=== PATIENT | female | born 1980 ===

== ENCOUNTER 2020-09-08 09:40 | Outpatient (REF) | payer OTHER, SELFPAY ==
--- NOTE | 2020-09-08 09:44 | MM_ITS ---
EXAMINATION: MM SCREENING DIGITAL MAMMOGRAPHY, BILATERAL CLINICAL INFORMATION: Screening. Asymptomatic. The lifetime risk of breast cancer based on the Tyrer-Cuzick Model is 11.2%. COMPARISON: Mammography: 12/01/2014 TECHNIQUE: Digital mammography is performed in craniocaudal and mediolateral oblique views along with computer-aided detection (CAD). FINDINGS: There are scattered areas of fibroglandular density (ACR BI-RADS breast composition Category b). No abnormal dominant mass or suspicious grouping of microcalcifications is seen within the left breast. Within the central aspect of the right breast slightly medially 7 cm from nipple, there is an ill-defined density with question of spiculation for which further evaluation with spot compression film and possible ultrasound is recommended. MM/MM screening mammo BI IMPRESSION: Question right breast abnormality for which further evaluation is suggested. ASSESSMENT: BI-RADS 0: Incomplete - Need Additional Imaging Evaluation. RECOMMENDATION: 1. Additional views of the right breast. 2. Targeted ultrasound if warranted after review of the additional views. 3. Radiology department staff will contact the patient for additional imaging. This patient's information was entered into a reminder system with a target due date for their next mammogram.
== END 2020-09-08 09:41 | disposition home or self-care (01) ==
LOC: HO.NEURO 09:40
PROVIDERS: PCP Internal Medicine; Visit Provider Internal Medicine
DX: Z12.31 Encounter for screening mammogram for malignant neoplasm of breast (principal)
CPT/HCPCS: 77067

== ENCOUNTER 2020-09-30 07:53 | Outpatient (REF) | payer OTHER, SELFPAY ==
--- NOTE | 2020-09-30 07:59 | MM_ITS ---
EXAMINATION: MM DIAGNOSTIC DIGITAL BREAST TOMOSYNTHESIS, RIGHT CLINICAL INFORMATION: Recall from screening for question of architectural changes central right breast. There is prior history benign right breast surgery 2015. Age 40. Family history breast cancer in aunt. TC score 11.2%. COMPARISON: Mammography: 09/08/2020, 12/01/2014 TECHNIQUE: Digital breast tomosynthesis is performed. 2D images are generated from the tomosynthesis. The following views are obtained: Spot CC x2, spot MLO. FINDINGS: There are scattered areas of fibroglandular density (ACR BI-RADS breast composition Category b). Additional views show no mass or suspicious architectural change. There is some minor scarring right breast likely related to the prior surgery. As a precaution, six-month follow-up right diagnostic mammography will be requested. Results are discussed with the patient at time of visit. MM/MM tomosynthesis added views R IMPRESSION: Additional views show no suspicious finding. There is likely some minor scarring from prior right breast surgery. ASSESSMENT: BI-RADS 3: Probably Benign RECOMMENDATION: Diagnostic right mammography in 6 months. This patient's information was entered into a reminder system with a target due date for their next mammogram.
== END 2020-09-30 07:54 | disposition home or self-care (01) ==
LOC: HO.MAMMO 07:53
PROVIDERS: PCP Internal Medicine; Visit Provider Internal Medicine
DX: R92.8 Other abnormal and inconclusive findings on diagnostic imaging of breast (principal); Z80.3 Family history of malignant neoplasm of breast
CPT/HCPCS: 77061; 77065

== ENCOUNTER → 2020-10-07 08:51 | Outpatient (BNVA) | payer OTHER, SELFPAY | PROVIDERS: PCP Internal Medicine; Visit Provider Orthopaedic Surgery | DX: M65.312 Trigger thumb, left thumb (principal); M65.331 Trigger finger, right middle finger; M65.311 Trigger thumb, right thumb; G56.02 Carpal tunnel syndrome, left upper limb | CPT/HCPCS: 20550; 99202; J1100 ==

== ENCOUNTER 2020-10-14 18:32 | Emergency (ER) | payer OTHER, SELFPAY ==
[2020-10-14 19:19] VITALS: BP 116/76; PULSE 90; RESP 18; TEMP 36.4; O2SAT 96; BMI 37.6
[2020-10-14 20:41] VITALS: BP 122/68; PULSE 82; RESP 17; TEMP 36.4; O2SAT 100
--- NOTE | 2020-10-14 21:07 | ECG_ITS ---
Test Reason : MEDICAL CLEARANCE Blood Pressure : / mmHG Vent. Rate : 065 BPM Atrial Rate : 065 BPM P-R Int : 140 ms QRS Dur : 088 ms QT Int : 364 ms P-R-T Axes : 019 009 010 degrees QTc Int : 378 ms Normal sinus rhythm Normal ECG When compared with ECG of 18-APR-2016 11:22, Vent. rate has decreased BY 44 BPM Referred By: Nichol Bird Electronically Signed By:RAMSEY YEPEZ MD
--- NOTE | 2020-10-14 21:07 | ED.BACK ---
HPI - Back Pain/Injury General Chief Complaint: Back Pain/Injury Stated Complaint: Back Pain Time Seen by Provider: 10/14/20 23:08 Source: patient Mode of arrival: ambulatory Limitations: language barrier History of Present Illness HPI Narrative: 40-year-old female with past medical history of AFib, tubal ligation, presents with 3 days of upper mid back pain radiating to the right arm. She states that she does a lot of standing and upper arm movement with work and states that the pain has not gotten better with any [id number]-pylurvd medications. She does report some intermittent chest pain. She does not describe any shortness of breath, palpitations, abdominal distention, dysuria, hematuria, fevers, chills or edema. MD elicited complaint: back pain Onset (ago): day(s) (3) Timing: constant Severity: moderate Pain scale (0-10): 6 Similar Symptoms Previously: No Quality: aching Location: right upper back and left upper back Radiation: other (Right arm) Exacerbating factors: movement and sitting upright Context: while lifting, turning/twisting and bending Treatments prior to arrival: NSAIDS and acetaminophen Work related injury: No Related Data Home Medications Medication Instructions Recorded Confirmed metoprolol succinate 25 mg 25 mg PO DAILY 07/13/20 07/13/20 tablet,extended release 24 hr diclofenac potassium 50 mg tablet 50 mg PO DAILY 10/07/20 Previous Rx's Medication Instructions Recorded cetirizine 10 mg tablet 10 mg PO DAILY PRN #30 tab 07/13/20 flecainide 50 mg tablet 50 mg PO BID #60 tab 07/14/20 doxycycline monohydrate 100 mg 100 mg PO BID 5 Days #10 tab 09/13/20 tablet cephalexin [Keflex] 500 mg PO Q12H 7 Days #14 cap 10/14/20 fluconazole [Diflucan] 150 mg PO DAILY #1 tab 10/14/20 phenazopyridine [Pyridium] 200 mg PO TID PRN #6 tab 10/14/20 Allergies Allergy/AdvReac Type Severity Reaction Status Date / Time oxycodone [OXYCODONE] Allergy Unknown PALPITATIONS, Verified 10/14/20 20:36 tachycardia, SOB,agitation Review of Systems Review of Systems: Constitutional: No Fever, No Chills ENT/Mouth: No sore throat Eyes: No Eye Pain, No Swelling, No Redness Cardiovascular: Positive Chest Pain, No SOB Respiratory: No Cough, No Sputum, No Wheezing Gastrointestinal: No Nausea, no Vomiting, No Diarrhea, now abdominal pain Genitourinary: No Dysuria, no urinary frequency, no Hematuria, positive Flank Pain, no hesitancy Musculoskeletal: Positive mid back pain, positive right arm pain, No joint pain, No Myalgias Skin: No Skin Lesions, No rash Neuro: No Weakness, No Numbness, No Headache Psych: No Anxiety/Panic, No Depression Heme/Lymph: No Bruising, No Lymphadenopathy Endocrine: No Polyuria, No Polydipsia Yes all other systems are reviewed and are negative [facility] Past Medical History Attestation statement: The following information was validated with the patient. Medical History Allergic rhinitis Atrial fibrillation Numbness of left hand Obesity Trigger finger Surgical History History of carpal tunnel release History of lumpectomy of right breast History of tubal ligation Family History Family History Father Diabetes Hypertension Mother Diabetes Maternal Grandmother Colon cancer Maternal Aunt Breast cancer Paternal Uncle Pancreas cancer Social History Social History Smoking Status: Former smoker Tobacco Type: Cigarette Advance Directives: No Advance Directives Information Provided: No Current occupational status: employed Current occupation: [employer] - right handed Physical Exam Vital Signs: Vital Signs: Last Vital Signs Temp 97.6 F 10/14/20 20:41 Pulse 82 10/14/20 20:41 Resp 17 10/14/20 20:41 BP 122/68 10/14/20 20:41 Pulse Ox 100 10/14/20 20:41 Body Mass Index 37.6 Appearance: Alert. Oriented X3. No acute distress. Eyes: Pupils equal, round and reactive to light. ENT: Pharynx normal. Neck: Normal inspection. Neck supple. CVS: Normal heart rate and rhythm. Pulses normal. Respiratory: No respiratory distress. Breath sounds normal. Abdomen: Soft and tender to the right upper quadrant, and suprapubic. Negative CVA tenderness. Skin: Skin warm and dry. Normal skin color. Normal skin turgor. Extremities: No lower extremity edema. Neuro: No motor deficit. No sensory deficit. Course Course Course Narrative: 40-year-old female with past medical history of AFib on metoprolol and flecainide presents with back pain, arm pain and intermittent chest pain. Plan of care is to rule out ACS, lab values and urinalysis. EKG normal sinus, troponins are negative, lab values are unremarkable. Urinalysis positive for UTI with yeast. Plan of care is to treat with Keflex and Diflucan for yeast infection. She does not describe any vaginal pain or discharge. She declines pelvic exam at this time and states that she has no risk of sexually transmitted infection. sand buffer utilized for all correspondence. Google translate utilized for discharge instructions. Patient verbalized understanding of and agrees to plan of care to discharge home. MDM - Back Pain/Injury MDM Narrative Medical decision making narrative: UTI, ACS, cholecystitis, pneumonia Differential Diagnosis Differential diagnosis: Likely lumbar radiculopathy, strain of lumbar region and pyelonephritis Medical Records Attestation: I reviewed the patient's medical records. Lab Data Attestation: I reviewed the patient's lab results. Result diagrams: 10/14/20 21:41 10/14/20 21:41 Labs: Lab Results 10/14/20 10/14/20 10/14/20 Range/Units 21:23 21:41 21:41 WBC 7.7 (4.8-10.8) X10*3/uL RBC 4.16 L (4.20-5.50) X10*6/uL Hgb 12.4 (12.0-16.0) g/dl Hct 38.8 (37-47) % MCV 93.3 (80-98) fL MCH 29.8 (27.0-33.0) pg MCHC 32.0 (31.0-35.0) g/dl RDW 13.2 (11.0-16.0) % Plt Count 289 (160-400) X10*3/uL MPV 9.8 (9.4-12.3) fL Immature Gran % (Auto) 0.1 (0.0-0.4) % Neut % (Auto) 50.2 (45-73) % Lymph % (Auto) 37.3 (20-40) % [place] % (Auto) 9.2 (2-11) % Eos % (Auto) 2.9 (0-4) % Baso % (Auto) 0.3 (0-2) % Lymph # (Auto) 2.9 (1.2-4.9) X10*3/uL [place] # (Auto) 0.7 (0.1-1.2) X10*3/uL Eos # (Auto) 0.2 (0.0-0.4) X10*3/uL Baso # (Auto) 0.0 (0.0-0.2) X10*3/uL Abs Immat Gran (auto) 0.01 (0.00-0.03) X10*3/uL Absolute Neuts (auto) 3.9 (2.0-8.3) X10*3/uL Absolute Nucleated RBC 0.000 (0.0-0.012) X10*3/uL Nucleated RBC % (auto) 0.0 (0.0-0.2) /100WBC PT 13.1 H (10.8-13.0) SEC INR 1.1 (0.9-1.1) APTT 30.0 (24.1-38.0) SEC Sodium (135-145) mmol/L Potassium (3.3-5.1) mmol/l Chloride (96-108) mmol/L Carbon Dioxide (22-29) mmol/L Anion Gap (12-20) BUN (9-16) mg/dL Creatinine (0.5-1.4) mg/dL Estim Creat Clear Calc Estimated GFR Random Glucose (60-115) mg/dL Calcium (8.4-10.2) mg/dL Total Bilirubin (0.0-1.0) mg/dL Direct Bilirubin (0.0-0.5) mg/dL AST (5-31) U/L ALT (0-31) U/L Alkaline Phosphatase (39-117) U/L Troponin I High Sens (<3.5-17.0) ng/L Total Protein (6.5-8.0) g/dL Albumin (3.5-5.0) g/dL Lipase (8-78) U/L Urine Color YELLOW Urine Appearance HAZY Urine pH 6.0 (5.0-8.0) Ur Specific [place] >= 1.030 H (1.005-1.025) Urine Protein NEG (NEG-TRACE) MG/DL Urine Glucose (UA) NEG (NEG) MG/DL Urine Ketones 5 (NEG) MG/DL Urine Blood NEG (NEG) Urine Nitrite NEG (NEG) Ur Leukocyte Esterase 2+ H (NEG) Urine RBC 0-2 (0) /HPF Urine WBC 15-29 H (0-4) /HPF Ur Squamous Epith Cells 3+ /LPF Urine Bacteria 1+ /LPF Urine Yeast TRACE /HPF 10/14/20 10/14/20 Range/Units 21:41 21:41 WBC (4.8-10.8) X10*3/uL RBC (4.20-5.50) X10*6/uL Hgb (12.0-16.0) g/dl Hct (37-47) % MCV (80-98) fL MCH (27.0-33.0) pg MCHC (31.0-35.0) g/dl RDW (11.0-16.0) % Plt Count (160-400) X10*3/uL MPV (9.4-12.3) fL Immature Gran % (Auto) (0.0-0.4) % Neut % (Auto) (45-73) % Lymph % (Auto) (20-40) % [place] % (Auto) (2-11) % Eos % (Auto) (0-4) % Baso % (Auto) (0-2) % Lymph # (Auto) (1.2-4.9) X10*3/uL [place] # (Auto) (0.1-1.2) X10*3/uL Eos # (Auto) (0.0-0.4) X10*3/uL Baso # (Auto) (0.0-0.2) X10*3/uL Abs Immat Gran (auto) (0.00-0.03) X10*3/uL Absolute Neuts (auto) (2.0-8.3) X10*3/uL Absolute Nucleated RBC (0.0-0.012) X10*3/uL Nucleated RBC % (auto) (0.0-0.2) /100WBC PT (10.8-13.0) SEC INR (0.9-1.1) APTT (24.1-38.0) SEC Sodium 140 (135-145) mmol/L Potassium 4.0 (3.3-5.1) mmol/l Chloride 106 (96-108) mmol/L Carbon Dioxide 25 (22-29) mmol/L Anion Gap 13 (12-20) BUN 13 (9-16) mg/dL Creatinine 0.74 (0.5-1.4) mg/dL Estim Creat Clear Calc 137.1 Estimated GFR > 60 Random Glucose 91 (60-115) mg/dL Calcium 8.7 (8.4-10.2) mg/dL Total Bilirubin 0.5 (0.0-1.0) mg/dL Direct Bilirubin 0.2 (0.0-0.5) mg/dL AST 15 (5-31) U/L ALT 21 (0-31) U/L Alkaline Phosphatase 60 (39-117) U/L Troponin I High Sens < 3.5 (<3.5-17.0) ng/L Total Protein 7.2 (6.5-8.0) g/dL Albumin 4.1 (3.5-5.0) g/dL Lipase 40 (8-78) U/L Urine Color Urine Appearance Urine pH (5.0-8.0) Ur Specific [place] (1.005-1.025) Urine Protein (NEG-TRACE) MG/DL Urine Glucose (UA) (NEG) MG/DL Urine Ketones (NEG) MG/DL Urine Blood (NEG) Urine Nitrite (NEG) Ur Leukocyte Esterase (NEG) Urine RBC (0) /HPF Urine WBC (0-4) /HPF Ur Squamous Epith Cells /LPF Urine Bacteria /LPF Urine Yeast /HPF Imaging Data Chest x-ray: Attestation: I personally reviewed and interpreted this imaging study as follows: Radiologist's impression: EXAMINATION: XR CHEST CLINICAL INFORMATION: Back and shoulder pain COMPARISON: Chest x-ray 12/01/2018 TECHNIQUE: 2 views of the chest were obtained. FINDINGS: Cardiac silhouette is normal in size. Low lung volumes. No lobar consolidation. No pleural effusion or pneumothorax. No acute osseous abnormality. XR/XR chest 2V IMPRESSION: Stable examination demonstrating no acute pulmonary pathology. ECG Data Attestation: I personally reviewed and interpreted this ECG as follows: ECG interpretation date: 10/14/20 ECG interpretation time: 21:27 Prior ECG tracings: available for review Interpretation: Vent. Rate : 065 BPM Atrial Rate : 065 BPM P-R Int : 140 ms QRS Dur : 088 ms QT Int : 364 ms P-R-T Axes : 019 009 010 degrees QTc Int : 378 ms Normal sinus rhythm Normal ECG When compared with ECG of 18-APR-2016 11:22, Vent. rate has decreased BY 44 BPM Scores Heart Score History: -1- moderately suspicious ECG: -0- normal Age: -0- < or = 45 Risk factory: -1- 1 or 2 risk factors Troponin: -0- < or = normal limit Score: 2 Risk: 1.7% Discharge Plan Discharge Clinical Impression: UTI (urinary tract infection) Patient Disposition: Home, Self-Care Instructions: Urinary Tract Infection in Women (ED) Additional Instructions: Te evaluaron para el dolor de espalda. Los valores de laboratorio indican infecci?n del tracto urinario. Por favor, tome Keflex cada 12 horas justine los pr?ximos 7 d?as. Gladys medicamento es un antibi?wilfred. Por favor, tome Pyridium seg?n sea necesario para el dolor de vejiga y espasmos. Gladys medicamento volver? la orina naranja. Gladys es un efecto secundario normal para gladys medicamento. Por favor, tome Diflucan rosalio vez que se completen zaira antibi?ticos. Gladys medicamento es para la infecci?n por hongos. Le dimos funez primera dosis en el departamento de emergencias. Por favor, rod un seguimiento con el proveedor de atenci?n primaria seg?n sea necesario. Si los s?ntomas persisten o empeoran, por favor regrese al departamento de emergencias. Puede usar Tylenol y Motrin seg?n sea necesario para el control del dolor. Odette por elegir gladys departamento de emergencias para la evaluaci?n. Por favor, rod un seguimiento con el m?dico de atenci?n primaria seg?n sea necesario. Regrese al servicio de urgencias para cualquier s?ntoma nuevo, preocupante o que empeore. You were evaluated for back pain. Lab values indicate urinary tract infection. Please take Keflex every 12 hours for the next 7 days. This medication is an antibiotic. Please take Pyridium as needed for bladder pain and spasms. This medication will turn your urine orange. This is a normal side effect for this medication. Please take Diflucan once your antibiotics are completed. This medication is for yeast infection. We gave you your 1st dose in the emergency department. Please follow-up with primary care provider as needed. If symptoms persist or get worse please return to the emergency department. You may use Tylenol and Motrin as needed for pain management. Thank you for choosing this emergency department for evaluation. Please follow-up with primary care physician as needed. Return to the emergency department for any new, concerning, or worsening symptoms. Prescriptions: New cephalexin [Keflex] 500 mg capsule 500 mg PO Q12H 7 Days Qty: 14 RF: 0 phenazopyridine [Pyridium] 200 mg tablet 200 mg PO TID PRN (Reason: pain) Qty: 6 RF: 0 fluconazole [Diflucan] 150 mg tablet 150 mg PO DAILY Qty: 1 RF: 0 No Action cetirizine 10 mg tablet 10 mg PO DAILY PRN (Reason: allergies) Qty: 30 RF: 11 flecainide 50 mg tablet 50 mg PO BID Qty: 60 RF: 5 doxycycline monohydrate 100 mg tablet 100 mg PO BID 5 Days Qty: 10 RF: 0 metoprolol succinate 25 mg tablet extended release 24 hr 25 mg PO DAILY RF: 0 Stand Alone Forms: Work/School Release Interventions: ED Discharge Assessment Last Done: 10/14/20 23:49 Discharge Date/Time: 10/14/20 23:51
[2020-10-14 22:32] LABS: MANUAL DIFF FLAG NO
[2020-10-14 22:34] LABS: Basophils Percent Auto 0.3 % (0-2); Eosinophils Absolute Auto 0.2 X10*3/uL (0.0-0.4); Eosinophils Percent Auto 2.9 % (0-4); Hematocrit 38.8 % (37-47); Hemoglobin 12.4 g/dl (12.0-16.0); Imm Gran Abs Auto 0.01 X10*3/uL (0.00-0.03); Imm Gran Pct Auto 0.1 % (0.0-0.4); Lymphocytes Absolute Auto 2.9 X10*3/uL (1.2-4.9); Lymphocytes Percent Auto 37.3 % (20-40); Mean Corpuscular Hemoglobin 29.8 pg (27.0-33.0); Mean Corpuscular Volume 93.3 fL (80-98); Mean Platelet Volume 9.8 fL (9.4-12.3); Monocytes Absolute Auto 0.7 X10*3/uL (0.1-1.2); Monocytes Percent Auto 9.2 % (2-11); Neutrophils Absolute Auto 3.9 X10*3/uL (2.0-8.3); Neutrophils Percent Auto 50.2 % (45-73); Platelet Count 289 X10*3/uL (160-400); Red Blood Count 4.16 X10*6/uL (4.20-5.50); Red Cell Distribution Width 13.2 % (11.0-16.0); White Blood Count 7.7 X10*3/uL (4.8-10.8)
[2020-10-14 22:39] LABS: INTERNATIONAL NORM RATIO 1.1 (0.9-1.1); Prothrombin Time 13.1 SEC (10.8-13.0)
[2020-10-14 22:42] LABS: Glucose Urine UA NEG (NEG); Leukocyte Esterase Urine 2+ (NEG); Nitrite Urine NEG (NEG); Specific Gravity - Urine >= 1.030 (1.005-1.025); Urine Blood NEG (NEG); Urine Ketones 5 MG/DL (NEG); Urine Protein NEG (NEG-TRACE)
[2020-10-14 22:43] LABS: Appearance Urine HAZY; Color Urine YELLOW
[2020-10-14 22:51] LABS: Bacteria Urine 1+ /LPF; RBC Urine 0-2 /HPF (0); Squamous Epithelial Cell Urine 3+ /LPF
[2020-10-14 22:56] LABS: Alanine Aminotransferase 21 U/L (0-31); Albumin Level 4.1 g/dL (3.5-5.0); Alkaline Phosphatase 60 U/L (39-117); Anion Gap 13 (12-20); Aspartate Amino Transferase 15 U/L (5-31); Bilirubin Direct 0.2 mg/dL (0.0-0.5); Bilirubin Total 0.5 mg/dL (0.0-1.0); Blood Urea Nitrogen 13 mg/dL (9-16); Calcium 8.7 mg/dL (8.4-10.2); Carbon Dioxide 25 mmol/L (22-29); Chloride 106 mmol/L (96-108); Creatinine Clr Calc Pharmacy 137.1; Estimated Glomerular Filt Rate > 60; Glucose Random 91 mg/dL (60-115); Lipase 40 U/L (8-78); Sodium 140 mmol/L (135-145); Total Protein 7.2 g/dL (6.5-8.0)
[2020-10-14 22:59] LABS: Troponin-I High Sensitivity < 3.5 ng/L (<3.5-17.0)
[2020-10-14] MEDS: Phenazopyridine HCL 200 MG TABLET PO (23:36)
[2020-10-14] MEDS: cephALEXin 500 MG CAPSULE PO (23:36)
[2020-10-14] MEDS: Fluconazole 150 MG TABLET PO (23:36)
== END 2020-10-14 23:51 | disposition home or self-care (01) ==
PROVIDERS: Nurse Practitioner Family; Emergency Provider Internal Medicine; PCP Internal Medicine
DX: N39.0 Urinary tract infection, site not specified (principal); I48.91 Unspecified atrial fibrillation; M79.621 Pain in right upper arm; Z87.891 Personal history of nicotine dependence
CPT/HCPCS: 36415; 71046; 80048; 80076; 81001; 83690; 84484; 85025; 85610; 85730; 87086; 93005; 99284

== ENCOUNTER → 2020-11-02 09:16 | Outpatient (REF) | payer OTHER, SELFPAY ==
--- NOTE | 2020-11-02 09:30 | CA_ITS ---
Transthoracic Echocardiogram Patient (Last, First, Middle): Kaia Cadet, Gender: Female Date of : 1980 Age: 40 Procedure Date: 11/02/2020 Procedure Type: Transthoracic Echocardiogram Location: OP Height: 175.26 cm Weight: 113.4 kg BSA: 2.27 m2 Heart Rate: bpm BP: 100 / 62 mmHg Visual Developer: WALTER Referring MD: James Jones MD Entry Level Software Engineer: Oscar Corrigan MD Symptoms: I48.0 PAF, Z79.899 LONTERM ANTIRHYTHMIC DRUG Study Quality: Fair ECG Rhythm: Sinus Conclusions: - Essentially normal study Findings Left Ventricle Normal left ventricular size, thickness, and systolic function. The visually estimated ejection fraction is between 60-65%. Diastolic function is normal for age. Right Ventricle Normal right ventricular cavity size and systolic function. Atria Both atria are normal in size. Interatrial shunt cannot be excluded. Aortic Valve Normal aortic valve structure and function. There is no aortic valve stenosis. There is no aortic valve regurgitation. Mitral Valve Normal mitral valve structure and function. There is trace mitral valve regurgitation. There is no mitral valve stenosis. Pulmonic Valve The pulmonic valve is likely normal. Tricuspid Valve Normal tricuspid valve structure. There is trace tricuspid valve regurgitation. The right ventricular systolic pressure is normal. The right ventricular systolic pressure is 19 mmHg. There is no evidence of pulmonary hypertension. Great Vessels All visible segments of the aorta are normal in size. The pulmonary artery was not well visualized. Venous The inferior vena cava is normal in size and collapses greater than 50% with inspiration. Pericardium/Pleural There is no evidence of pericardial effusion. Prior Study Comparison No significant change compared to prior study dated: 02/09/2016. Measurements 2D Linear Measurements IVSd: 0.87 0.6-0.9/0.6-1.0 cm LVIDd: 4.69 3.9-5.3/4.2-5.9 cm LVIDd Index: 2.07 2.4-3.2/2.2-3.1 cm/m2 LVIDs: 3.05 2.0-3.6 cm LVPWd: 0.84 0.7-1.1 cm Ao Root: 2.70 2.1-3.5 cm LA Diam: 3.40 2.7-3.8/3.0-4.0 cm LAIDs Index: 1.50 1.5-2.3 cm/m2 LV Mass: 164.83 67-162/88-224 g LV Mass Index: 72.61 43-95/49-115 g/m2 LVOT Diam: 2.00 3.0+(-)1.3 cm 2D Systolic Function EF 4C: 62.40 >55% Mitral Valve MV Pk E: 0.67 MV PK A: 0.50 MV Decel Time: 116.00 E/A: 1.30 E'Lateral: 11.20 E'Medial: 8.90 E/E' Med: 7.50 E/E' Lat: 5.90 PHT: 34.00 MVA PHT: 6.47 Decel [place]: 5.72 Aortic Valve AoV Pk Narciso: 1.48 AoV Pk Grad: 9.00 LVOT LVOT Pk Narciso: 1.02 LVOT Mn Narciso: 0.65 LVOT VTI: 0.21 LVOT Pk Grad: 4.00 LVOT Mn Grad: 2.00 LVOT Diam: 2.00 LVOT Area: 3.14 Diastolic Function MV Pk E: 0.67 MV Pk A: 0.50 E/A: 1.30 E'Medial: 8.90 E/E' Med: 7.50 E' Laterial: 11.20 E/E' Lat: 5.90 Tricuspid Valve TR Pk Narciso: 2.02 TR Pk Grad: 16.00 RA Press: 3.00 RVSP: 19.00 Great Vessels Aorta Ao Root-2D: 2.70 2.0-3.7 cm Ao Asc: 2.50 2.1-3.4 cm Updated in Other Vendor System with Status of Final Oscar Corrigan MD electronically signed on 11/03/2020 1:12:31 PM with status of Final
== END ==
LOC: HO.CARD 09:16
PROVIDERS: PCP Internal Medicine; Visit Provider Internal Medicine
DX: I48.0 Paroxysmal atrial fibrillation (principal); Z79.899 Other long term (current) drug therapy
CPT/HCPCS: 93306

== ENCOUNTER → 2020-12-06 08:31 | Outpatient (BNVA) | payer OTHER, SELFPAY | PROVIDERS: PCP Internal Medicine; Visit Provider Internal Medicine | DX: I48.0 Paroxysmal atrial fibrillation (principal); E66.09 Other obesity due to excess calories; Z68.37 Body mass index [BMI] 37.0-37.9, adult; Z51.81 Encounter for therapeutic drug level monitoring; Z79.899 Other long term (current) drug therapy | CPT/HCPCS: 93005; 99212 ==

== ENCOUNTER → 2020-12-23 09:49 | Outpatient (REF) | payer OTHER, SELFPAY | LOC: HO.SL 09:49 | PROVIDERS: PCP Internal Medicine; Visit Provider Internal Medicine | DX: G47.33 Obstructive sleep apnea (adult) (pediatric) (principal); I48.0 Paroxysmal atrial fibrillation | CPT/HCPCS: 95806 ==

== ENCOUNTER → 2021-03-22 08:50 | Outpatient (BNVA) | payer OTHER, SELFPAY | PROVIDERS: PCP Internal Medicine; Visit Provider Nurse Practitioner Family | DX: G47.33 Obstructive sleep apnea (adult) (pediatric) (principal) | CPT/HCPCS: 99202 ==

== ENCOUNTER 2021-03-30 08:35 | Outpatient (REF) | payer OTHER, SELFPAY ==
--- NOTE | ~2021-03-30 | MM_ITS ---
EXAMINATION: MM DIAGNOSTIC DIGITAL BREAST TOMOSYNTHESIS, RIGHT CLINICAL INFORMATION: Six-month follow-up right breast asymmetry The lifetime risk of breast cancer based on the Tyrer-Cuzick Model is 11.5%. COMPARISON: Mammography: September 30, 2020 and studies dating back to December 01, 2014 TECHNIQUE: Digital breast tomosynthesis is performed in both the craniocaudal and mediolateral oblique views along with computer-aided detection (CAD). Synthesized 2D images are generated from the tomosynthesis. FINDINGS: There are scattered areas of fibroglandular density (ACR BI-RADS breast composition Category b). There is a stable parenchymal pattern within the right breast with no new abnormal dominant mass or suspicious grouping of microcalcifications. Small region of architectural distortion is similar in appearance dating back to study of December 01, 2014. Results are provided to the patient at time of visit by the technologist. MM/MM tomosynthesis diagnostic RT IMPRESSION: There are no significant changes from prior study. ASSESSMENT: BI-RADS 2: Benign RECOMMENDATION: Routine annual mammography screening due in 12 months. This patient's information was entered into a reminder system with a target due date for their next mammogram.
== END 2021-03-30 08:36 | disposition home or self-care (01) ==
LOC: HO.MAMMO 08:35
PROVIDERS: PCP Internal Medicine; Visit Provider Internal Medicine
DX: R92.2 Inconclusive mammogram (principal)
CPT/HCPCS: 77061; 77065

== ENCOUNTER → 2021-06-21 08:15 | Outpatient (BNVA) | payer OTHER, SELFPAY | PROVIDERS: PCP Internal Medicine; Visit Provider Nurse Practitioner Family ==

== ENCOUNTER 2021-06-24 04:10 | Emergency (ER) | payer OTHER, SELFPAY ==
--- NOTE | ~2021-06-24 | XR_ITS ---
EXAMINATION: XR LUMBAR SPINE CLINICAL INFORMATION: Low back pain COMPARISON: 12/13/2015 TECHNIQUE: Three views of the lumbar spine. FINDINGS: There is anatomic alignment of the lumbar vertebral bodies and posterior elements. Vertebral body heights are maintained. Intervertebral disc spaces are relatively well-preserved. No acute fracture is seen. Sacroiliac joints are intact. XR/XR lumbar spine 2-3V IMPRESSION: No acute findings.
[2021-06-24 05:56] VITALS: BP 118/69; PULSE 77; RESP 16; TEMP 36.4; O2SAT 99; BMI 36.9
--- NOTE | 2021-06-24 06:11 | ED_ITS ---
HPI - Back Pain/Injury General Chief Complaint: Back Pain/Injury Stated Complaint: back pain Time Seen by Provider: 06/24/21 06:11 Source: patient Mode of arrival: ambulatory Limitations: no limitations History of Present Illness HPI Narrative: Low back pain, denies injury, started yesterday. In the past she had upper back pain. Denies dysuria or hematuria. no fever. Increased pain with ambulation. MD elicited complaint: back pain Pertinent past history: prior back pain Onset (ago): day(s) Timing: constant Severity: mild Quality: throbbing Location: lumbar spine Exacerbating factors: movement Associated symptoms: denies other symptoms Related Data Previous Rx's Medication Instructions Recorded cetirizine 10 mg tablet 10 mg PO DAILY PRN #30 tab 07/13/20 cyclobenzaprine 5 mg tablet 5 mg PO BEDTIME PRN 30 Days #14 tab 11/15/20 metoprolol succinate 25 mg 25 mg PO DAILY #30 tab 12/14/20 tablet,extended release 24 hr flecainide 50 mg tablet 50 mg PO BID #60 tab 01/18/21 azelastine 137 mcg (0.1 %) nasal 2 spray INTRANASAL BID #30 ml 03/22/21 spray aerosol cyclobenzaprine 10 mg tablet 10 mg PO TID #10 tab 06/24/21 naproxen 500 mg tablet (Naprosyn) 500 mg PO BID #20 tab 06/24/21 Allergies Allergy/AdvReac Type Severity Reaction Status Date / Time oxycodone [OXYCODONE] Allergy Intermediate PALPITATIONS, Verified 06/21/21 08:16 tachycardia, SOB,agitation Review of Systems Constitutional: Constitutional: Reports no additional constitutional complaints Eyes: Eyes: Reports no additional eye complaints ENT: Denies dizziness Cardiovascular: Cardiovascular: Reports no additional cardiovascular complaints Respiratory: Respiratory: Reports as per HPI Gastrointestinal: Gastrointestinal: Reports no additional gastrointestinal complaints Genitourinary: Genitourinary: Reports no additional female genitourinary complaints Musculoskeletal: Musculoskeletal: Reports no additional musculoskeletal complaints Integumentary/Breasts: Skin/Breast: Denies rash Neurologic: Reports system reviewed and no additional complaints, except as documented, Denies dizziness and Denies Sensory deficit (Neuro) Psychiatric: Psychiatric: Denies anxiety [facility] Past Medical History Medical History (Updated 06/24/21 @ 07:13 by Mango Bishop MD) Allergic rhinitis Numbness of left hand Obesity PAF (paroxysmal atrial fibrillation) Trigger finger Upper back pain Surgical History History of carpal tunnel release History of lumpectomy of right breast History of tubal ligation Family History Family History Father Diabetes Hypertension Mother Diabetes Maternal Grandmother Colon cancer Maternal Aunt Breast cancer Paternal Uncle Pancreas cancer Social History Social History Housing: Apartment Alcohol intake: current Alcohol intake frequency: holidays/special occasions only Alcohol type: wine and hard liquor Patient Tobacco Use Status: Former Tobacco user Tobacco use type: Cigarette e-Cigarette/Vaping Use: Never Used Second Hand Smoke Exposure: No Advance Directives: No Advance Directives Information Provided: Yes Patient : No service: No Current occupational status: employed Current occupation: [employer] - right handed Current occupational exposures/hazards: No Physical Exam Vital Signs: Vital Signs: Last Vital Signs Temp 97.5 F 06/24/21 05:56 Pulse 77 06/24/21 05:56 Resp 16 06/24/21 05:56 BP 118/69 06/24/21 05:56 Pulse Ox 99 06/24/21 05:56 Body Mass Index 36.9 Const: General: healthy appearing Nutritional Appearance: average body habitus Orientation/consciousness: oriented to person and patient oriented x3 Limitations: no limitations HENMT: Head: Yes normal to inspection Ears: external ears normal General nose exam: Normal external nose present Mouth: Normal oral and palatal mucosa present and oropharynx normal Throat: Yes posterior oropharynx normal Eyes: General: appearance normal, both eyes and all related structures Neck: Other: supple Neck: Yes normal visual inspection Chest: Chest palpation & inspection: normal inspection of the chest Resp: Auscultation: clear to auscultation bilaterally Cardio: Jugular venous distension: no JVD Rate: regular rate Rhythm: regular rhythm Heart sounds: S1 normal heart sound present and S2 normal heart sound present GI: Inspection: Yes normal to inspection Palpation (GI): Soft to palpation, nontender and No hepatosplenomegaly present Auscultation: normal bowel sounds Back/Spine/Pelvis: Other: bilateral SI joint pain Skin: General skin exam: no rashes or lesions noted Neuro: General: oriented to person and patient oriented x3 Cranial nerves: Yes CN's II-XII intact bilaterally Motor exam (neuro): 5/5 motor strength present throughout Sensory Exam: No Sensory deficit (Neuro) Extrem: General: Yes normal to inspection Psych: Appearance: grossly normal Course Reevaluation(s) Reevaluation #1: patient with bilateral SI joint tenderness, xray negative, UA negative will start NSAIDs and flexeril Time: 07:12 MDM - Back Pain/Injury Lab Data Labs: Lab Results 06/24/21 06/24/21 Range/Units 06:12 06:12 Urine Color YELLOW Urine Appearance CLEAR Urine pH 6.5 (5.0-8.0) Ur Specific [place] 1.015 (1.005-1.025) Urine Protein NEG (NEG-TRACE) MG/DL Urine Glucose (UA) NEG (NEG) MG/DL Urine Ketones NEG (NEG) MG/DL Urine Blood NEG (NEG) Urine Nitrite NEG (NEG) Ur Leukocyte Esterase NEG (NEG) Urine Test NEGATIVE (NEGATIVE) Imaging Data lumbar sacral spine: Radiologist's impression: IMPRESSION: No acute findings. Discharge Plan Discharge Clinical Impression: Strain of lumbar region Patient Disposition: Home, Self-Care Instructions: Low Back Strain (ED) Prescriptions: New cyclobenzaprine 10 mg tablet 10 mg PO TID Qty: 10 RF: 0 naproxen [Naprosyn] 500 mg tablet 500 mg PO BID Qty: 20 RF: 0 No Action cetirizine 10 mg tablet 10 mg PO DAILY PRN (Reason: allergies) Qty: 30 RF: 11 metoprolol succinate 25 mg tablet extended release 24 hr 25 mg PO DAILY Qty: 30 RF: 5 flecainide 50 mg tablet 50 mg PO BID Qty: 60 RF: 5 cyclobenzaprine 5 mg tablet 5 mg PO BEDTIME PRN (Reason: muscle spasm) 30 Days Qty: 14 RF: 1 azelastine 137 mcg (0.1 %) aerosol,spray 2 spray intranasal BID Qty: 30 RF: 3 Referrals: Pamela Coughlin MD [Primary Care Provider] - 1 week
[2021-06-24 06:18] LABS: Appearance Urine CLEAR; Color Urine YELLOW; Glucose Urine UA NEG (NEG); Leukocyte Esterase Urine NEG (NEG); Nitrite Urine NEG (NEG); PH 6.5 (5.0-8.0); Specific Gravity - Urine 1.015 (1.005-1.025); Urine Blood NEG (NEG); Urine Ketones NEG (NEG); Urine Protein NEG (NEG-TRACE)
[2021-06-24 06:19] LABS: UACC Culture Trigger NO; UPreg QC Valid YES; Urine Pregnancy NEGATIVE (NEGATIVE)
[2021-06-24] MEDS: Ketorolac Tromethamine 60 MG/2 ML VIAL IM (06:25)
[2021-06-24] MEDS: Cyclobenzaprine HCl 10 MG TABLET PO (06:33)
== END 2021-06-24 07:22 | disposition home or self-care (01) ==
PROVIDERS: Emergency Provider Emergency Medicine; PCP Internal Medicine
DX: M54.5 Low back pain (principal); Z87.891 Personal history of nicotine dependence; Z79.899 Other long term (current) drug therapy
CPT/HCPCS: 72100; 81003; 81025; 96372; 99283; 99284; J1885

== ENCOUNTER 2021-09-09 14:55 | Outpatient (REF) | payer OTHER, SELFPAY ==
--- NOTE | ~2021-09-09 | MM_ITS ---
EXAMINATION: MM SCREENING DIGITAL BREAST TOMOSYNTHESIS, BILATERAL CLINICAL INFORMATION: Screening. Asymptomatic. The lifetime risk of breast cancer based on the Tyrer-Cuzick Model is 12%. COMPARISON: Mammography: 03/30/2021, 09/30/2020, 09/08/2020, 12/01/2014 TECHNIQUE: Digital breast tomosynthesis is performed in both the craniocaudal and mediolateral oblique views along with computer-aided detection (CAD). Synthesized 2D images are generated from the tomosynthesis. FINDINGS: There are scattered areas of fibroglandular density (ACR BI-RADS breast composition Category b). There are no significant masses, abnormal calcifications, or other abnormalities. Parenchymal pattern is similar to prior studies. The axilla are unremarkable. Small dermal lesion overlying mid medial left breast is stable. MM/MM tomosynthesis screening BI IMPRESSION: No mammographic evidence of malignancy. ASSESSMENT: BI-RADS 2: Benign RECOMMENDATION: Routine annual mammography screening. This patient's information was entered into a reminder system with a target due date for their next mammogram.
== END 2021-09-09 14:56 | disposition home or self-care (01) ==
LOC: HO.MAMMO 14:55
PROVIDERS: Visit Provider Internal Medicine
DX: Z12.31 Encounter for screening mammogram for malignant neoplasm of breast (principal)
CPT/HCPCS: 77063; 77067

== ENCOUNTER 2021-11-11 10:37 | Outpatient (REF) | payer OTHER, SELFPAY ==
[2021-11-11 10:49] LABS: COVID-19 Test Positive (Negative); IDNOW Serial# 16C4AD1C
== END 2021-11-11 10:38 | disposition home or self-care (01) ==
LOC: HO.LAB 10:37
PROVIDERS: Visit Provider Internal Medicine
DX: Z20.822 Contact with and (suspected) exposure to COVID-19 (principal)
CPT/HCPCS: 87635; C9803

== ENCOUNTER → 2022-01-03 15:02 | Outpatient (BNVA) | payer OTHER, SELFPAY | PROVIDERS: PCP Internal Medicine; Referring Provider Internal Medicine; Visit Provider Internal Medicine | DX: I48.0 Paroxysmal atrial fibrillation (principal); E66.09 Other obesity due to excess calories; Z68.38 Body mass index [BMI] 38.0-38.9, adult; G47.33 Obstructive sleep apnea (adult) (pediatric); Z51.81 Encounter for therapeutic drug level monitoring; Z79.899 Other long term (current) drug therapy; Z99.89 Dependence on other enabling machines and devices | CPT/HCPCS: 93005; 99212 ==

== ENCOUNTER 2022-09-09 07:11 | Outpatient (REF) | payer OTHER, SELFPAY ==
[2022-09-09 07:25] LABS: MANUAL DIFF FLAG NO
[2022-09-09 07:37] LABS: Basophils Percent Auto 0.3 % (0-2); Eosinophils Absolute Auto 0.1 X10*3/uL (0.0-0.4); Eosinophils Percent Auto 2.2 % (0-4); Hemoglobin 11.9 g/dl (12.0-16.0); Imm Gran Abs Auto 0.01 X10*3/uL (0.00-0.03); Imm Gran Pct Auto 0.2 % (0.0-0.4); Lymphocytes Absolute Auto 2.1 X10*3/uL (1.2-4.9); Lymphocytes Percent Auto 36.5 % (20-40); Mean Corpuscular HGB Conc 32.2 g/dl (31.0-35.0); Mean Corpuscular Hemoglobin 28.1 pg (27.0-33.0); Mean Corpuscular Volume 87.5 fL (80.0-98.0); Mean Platelet Volume 9.7 fL (9.4-12.3); Monocytes Absolute Auto 0.6 X10*3/uL (0.1-1.2); Monocytes Percent Auto 10.1 % (2-11); Neutrophils Percent Auto 50.7 % (45-73); Platelet Count 233 X10*3/uL (160-400); Red Blood Count 4.23 X10*6/uL (4.20-5.50); Red Cell Distribution Width 14.3 % (11.0-16.0); White Blood Count 5.9 X10*3/uL (4.8-10.8)
[2022-09-09 08:23] LABS: Alanine Aminotransferase 19 U/L (0-31); Albumin Level 3.8 g/dL (3.5-5.0); Alkaline Phosphatase 65 U/L (39-117); Anion Gap 11 (12-20); Aspartate Amino Transferase 14 U/L (5-31); Blood Urea Nitrogen 14 mg/dL (9-16); Calcium 8.7 mg/dL (8.4-10.2); Carbon Dioxide 25 mmol/L (22-29); Chloride 106 mmol/L (96-108); Cholesterol 198 mg/dL; Estimated Glomerular Filt Rate > 60; Glucose Fasting 86 mg/dL (60-99); HDL Cholesterol 50 mg/dL; LDL Cholesterol Calculated 134 mg/dl; Potassium 4.2 mmol/L (3.3-5.1); Sodium 138 mmol/L (135-145); Thyroid Stimulating Hormone 1.32 uIU/mL (0.32-4.0); Total Protein 6.9 g/dL (6.5-8.0); Triglycerides 70 mg/dL
[2022-09-09 08:44] LABS: Bilirubin Total 0.4 mg/dL (0.0-1.0)
== END 2022-09-09 07:12 | disposition home or self-care (01) ==
LOC: HO.LAB 07:11
PROVIDERS: PCP Internal Medicine; Visit Provider Internal Medicine
DX: Z00.00 Encounter for general adult medical examination without abnormal findings (principal); E66.9 Obesity, unspecified; E78.5 Hyperlipidemia, unspecified; D64.9 Anemia, unspecified
CPT/HCPCS: 36415; 80053; 80061; 84443; 85025

== ENCOUNTER 2022-09-14 15:18 | Outpatient (REF) | payer OTHER, SELFPAY ==
--- NOTE | ~2022-09-14 | MM_ITS ---
EXAMINATION: MM SCREENING DIGITAL BREAST TOMOSYNTHESIS, BILATERAL CLINICAL INFORMATION: Screening. Asymptomatic. The lifetime risk of breast cancer based on the Tyrer-Cuzick Model is 17.4%. COMPARISON: Mammography: March 30, 2021 and studies dating back to December 01, 2014 TECHNIQUE: Digital breast tomosynthesis is performed in both the craniocaudal and mediolateral oblique views along with computer-aided detection (CAD). Synthesized 2D images are generated from the tomosynthesis. FINDINGS: The breasts are heterogeneously dense, which may obscure small masses (ACR BI-RADS breast composition Category c). There are no new significant masses, abnormal calcifications, or other abnormalities. MM/MM tomosynthesis screening BI IMPRESSION: No significant changes from prior exam. ASSESSMENT: BI-RADS 1: Negative RECOMMENDATION: Routine annual mammography screening. This patient's information was entered into a reminder system with a target due date for their next mammogram.
== END 2022-09-14 15:19 | disposition home or self-care (01) ==
LOC: HO.MAMMO 15:18
PROVIDERS: PCP Internal Medicine; Visit Provider Internal Medicine
DX: Z12.31 Encounter for screening mammogram for malignant neoplasm of breast (principal)
CPT/HCPCS: 77063; 77067

== ENCOUNTER → 2023-01-04 15:01 | Outpatient (BNVA) | payer OTHER, SELFPAY | PROVIDERS: PCP Internal Medicine; Referring Provider Internal Medicine; Visit Provider Internal Medicine | DX: I48.0 Paroxysmal atrial fibrillation (principal); Z51.81 Encounter for therapeutic drug level monitoring; G47.33 Obstructive sleep apnea (adult) (pediatric); E66.09 Other obesity due to excess calories; Z79.899 Other long term (current) drug therapy; Z68.41 Body mass index [BMI] 40.0-44.9, adult | CPT/HCPCS: 93005; 99212 ==

== ENCOUNTER → 2023-01-17 15:15 | Outpatient (BNVA) | payer OTHER, SELFPAY | PROVIDERS: PCP Internal Medicine; Referring Provider Internal Medicine; Visit Provider Surgery | DX: L98.9 Disorder of the skin and subcutaneous tissue, unspecified (principal); Z80.0 Family history of malignant neoplasm of digestive organs | CPT/HCPCS: 99202 ==

== ENCOUNTER 2023-01-26 10:26 | Emergency (ER) | payer OTHER, SELFPAY ==
--- NOTE | ~2023-01-26 | US_ITS ---
EXAMINATION: US VENOUS ULTRASOUND WITH DOPPLER LOWER EXTREMITY, BILATERAL CLINICAL INFORMATION: Bilateral leg edema and redness. COMPARISON: None available. TECHNIQUE: Ultrasound of the deep veins is performed from the hip to the calf with compression sonography and color and pulse Doppler assessment. Spectral analysis with color-flow imaging is performed. FINDINGS: RIGHT: There is normal venous compression and respiratory variation and augmented flow. The visualized common femoral vein, superficial femoral vein, profunda femoral vein, popliteal vein, and the trifurcation region shows no evidence of deep venous thrombosis. There is no significant popliteal fossa cyst. LEFT: There is normal venous compression and respiratory variation and augmented flow. The visualized common femoral vein, superficial femoral vein, profunda femoral vein, popliteal vein, and the trifurcation region shows no evidence of deep venous thrombosis. There is no significant popliteal fossa cyst If the patient's symptoms persist, followup ultrasound in 5 days 7 days might be of value to exclude proximal propagation from a non-visualized calf vein. US/US venous duplex LE BI IMPRESSION: No DVT demonstrated in the bilateral lower extremity.
[2023-01-26 11:39] VITALS: BP 110/76; PULSE 80; RESP 17; TEMP 35.9; O2SAT 98; BMI 40.4
--- NOTE | 2023-01-26 11:39 | ED.GENADULT ---
HPI - General Adult General Chief complaint: General Medical <KELLY Mattson - Last Filed: 01/26/23 11:43> Stated complaint: Swollen legs/redness/itchiness <KELLY Mattson - Last Filed: 01/26/23 11:43> Time Seen by Provider: 01/26/23 12:30 <KELLY Mattson - Last Filed: 01/26/23 11:43> Source: patient <Vargas Read - Last Filed: 01/26/23 14:00> Limitations: language barrier <Vargas Read - Last Filed: 01/26/23 14:00> History of Present Illness HPI narrative: 43-year-old female who presents to the ER with a rash to her left lower leg. Patient states rash recently started on right lower leg. It was very itchy. Patient denies any known contacts or allergens. Patient does have a longstanding history of hypertension seasonal allergies obstructive sleep apnea. Patient denies any shortness of breath fever chills or chest pain. Patient does have a dog at home but has not noticed any fleas at home. Patient denies fever chills or history of DVTs in the past. Symptoms are [id number]. Patient states she has had leg swelling and is on her feet daily at work. <Vargas Read - Last Filed: 01/26/23 14:00> Related Data Home medications: Previous Rx's Medication Instructions Recorded cetirizine 10 mg tablet 10 mg PO DAILY PRN allergy 07/22/22 symptoms 90 days #90 tabs metoprolol succinate 25 mg 25 mg PO DAILY #30 tabs 08/21/22 tablet,extended release 24 hr flecainide 50 mg tablet 50 mg PO BID 90 days #180 tabs 12/21/22 omeprazole 20 mg capsule,delayed 20 mg PO DAILY 90 days #90 caps 12/27/22 release fluticasone propionate 50 1 spray intranasal DAILY 30 days 01/05/23 mcg/actuation nasal #16 grams spray,suspension diphenhydramine HCl 25 mg tablet 25 mg PO TID PRN itching #20 tabs 01/26/23 (Allergy (diphenhydramine)) prednisone 20 mg tablet 40 mg PO DAILY 5 days #10 tabs 01/26/23 <KELLY Mattson - Last Filed: 01/26/23 11:43> Allergies/adverse reactions: Allergies Allergy/AdvReac Type Severity Reaction Status Date / Time oxycodone [OXYCODONE] Allergy Intermediate PALPITATIONS, Verified 01/17/23 15:42 tachycardia, SOB,agitation <KELLY Mattson - Last Filed: 01/26/23 11:43> Review of Systems Review of Systems: General: No fever, no chills Ophthalmology: No vision changes, no discharge ENT: No sore throat, no ear pain Cardiovascular, no chest pain, no peripheral edema no shortness of breath Respiratory: No dyspnea, no sputum production, no cough Muscle skeletal: No malaise, no back pain, no neck pain, no extremity pain, lower leg edema GI: No abdominal pain: No nausea vomiting, no diarrhea : No dysuria, no urgency, no frequency Psychiatric: No depression, no suicidal ideation, no homicidal ideation Skin: Positive rash left lower leg Immunology: No immunocompromised Hematology: No bleeding, no bruising <Vargas Read - Last Filed: 01/26/23 14:00> [facility] Past Medical History Medical History: Medical History Allergic rhinitis Family history of pancreatic cancer Lumbar pain Numbness of left hand Obesity Obesity (BMI 35.0-39.9 without comorbidity) PAF (paroxysmal atrial fibrillation) Skin lesions Trigger finger Upper back pain <KELLY Mattson - Last Filed: 01/26/23 11:43> Surgical History: Surgical History History of carpal tunnel release History of lumpectomy of right breast History of tubal ligation <KELLY Mattson - Last Filed: 01/26/23 11:43> Family History Family History: Family History Father Diabetes Hypertension Mother Diabetes Maternal Grandmother Colon cancer Maternal Aunt Breast cancer Paternal Uncle Pancreas cancer Family/Other Bone cancer <KELLY Mattson - Last Filed: 01/26/23 11:43> Social History Social History: Social History Housing: Apartment Alcohol intake: current Alcohol intake frequency: holidays/special occasions only Alcohol type: wine and hard liquor Patient Tobacco Use Status: Former Tobacco user e-Cigarette/Vaping Use: Never Used Second Hand Smoke Exposure: No Advance Directives: No Advance Directives Information Provided: Yes service: No Current occupational status: employed Current occupation: [employer] - right handed Current occupational exposures/hazards: No Cognitive needs: No Hearing needs: No Vision needs: Yes <KELLY Mattson - Last Filed: 01/26/23 11:43> Physical Exam ED Vital Signs: Vital Signs - 24 hr 01/26/23 11:39 Temperature 96.7 F L Pulse Rate 80 Respiratory Rate 17 Blood Pressure 110/76 Pulse Oximetry 98 Oxygen Delivery Method Room Air BMI result Body Mass Index 40.4 <KELLY Mattson - Last Filed: 01/26/23 11:43> Vital Signs - 24 hr 01/26/23 11:39 Temperature 96.7 F L Pulse Rate 80 Respiratory Rate 17 Blood Pressure 110/76 Pulse Oximetry 98 Oxygen Delivery Method Room Air BMI result Body Mass Index 40.4 <Vargas Read - Last Filed: 01/26/23 14:00> General appearance: Awake, alert, cooperative, in no acute distress Skin: Erythematous rash noted in the left lower leg. No ecchymosis sensation pulses intact no lymphangitis Eyes: PERRL, EOMI, no icterus ENT: Oropharynx normal Neck: Soft supple full range of motion Pulmonary: Breath sounds clear to auscultation bilaterally, no accessory muscle use Cardiovascular: Regular rate and rhythm no murmurs and rubs Abdomen: Soft nontender no rebound or guarding positive bowel sounds Extremities: No deformity, nontender, no peripheral edema noted Neuro: Alert oriented x3, no focal deficit Psych: Normal affect <Vargas Read - Last Filed: 01/26/23 14:00> Course Course Course Narrative: RME: 43yo F w/PMHx JORGE, HTN c/o 6 days of b/l LE edema and red pruritic patches. Reports increasing swelling. Denies SOB, fever, chills, history of clots, recent travel, new exposures +B/L LE pitting edema w/red blotchy rash to RLE, +blanching. No warmth Labs, Venous duplex US ordered Full HPI, ROS and PE to be performed by primary ED provider. <KELLY Mattson - Last Filed: 01/26/23 11:43> Medical Decision Making Medical Decision Making MDM Narrative: Left lower leg cellulitis Dermatitis DVT Insect bite Allergic reaction Zoster low suspicion 43-year-old female nontoxic in appearance with rash or left lower leg and leg edema. Patient states rash originally started at the sock line of her right ankle. Now is worsened on the left side. With areas of redness. The rash is very itchy. No relief with [id number] meds at this time. The CBC BMP duplex ultrasound pending 13:48 duplex bilateral lower extremities negative for DVT lab work is unremarkable symptoms more consistent with a dermatitis will treat symptomatically at this time. No obvious vesicles low suspicion for zoster at this time rash is not painful rather than itchy <Vargas Read - Last Filed: 01/26/23 14:00> Lab Data Result Diagrams: 01/26/23 11:48 01/26/23 11:48 <KELLY Mattson - Last Filed: 01/26/23 11:43> Labs: Lab Results 01/26/23 01/26/23 01/26/23 Range/Units 11:48 11:48 11:48 WBC 7.4 (4.8-10.8) X10*3/uL RBC 4.46 (4.20-5.50) X10*6/uL Hgb 12.4 (12.0-16.0) g/dl Hct 39.5 (37.0-47.0) % MCV 88.6 (80.0-98.0) fL MCH 27.8 (27.0-33.0) pg MCHC 31.4 (31.0-35.0) g/dl RDW 14.1 (11.0-16.0) % Plt Count 308 D (160-400) X10*3/uL MPV 9.9 (9.4-12.3) fL Immature Gran % (Auto) 0.3 (0.0-0.4) % Neut % (Auto) 54.0 (45-73) % Lymph % (Auto) 32.2 (20-40) % [place] % (Auto) 9.6 (2-11) % Eos % (Auto) 3.4 (0-4) % Baso % (Auto) 0.5 (0-2) % Lymph # (Auto) 2.4 (1.2-4.9) X10*3/uL [place] # (Auto) 0.7 (0.1-1.2) X10*3/uL Eos # (Auto) 0.3 (0.0-0.4) X10*3/uL Baso # (Auto) 0.0 (0.0-0.2) X10*3/uL Abs Immat Gran (auto) 0.02 (0.00-0.03) X10*3/uL Absolute Neuts (auto) 4.0 (2.0-8.3) x10*3/uL Absolute Nucleated RBC 0.000 (0.0-0.012) X10*3/uL Nucleated RBC % (auto) 0.0 (0.0-0.2) /100WBC PT 11.8 (10.0-13.1) SEC INR 1.0 (0.9-1.1) Sodium 137 (135-145) mmol/L Potassium 4.0 (3.3-5.1) mmol/L Chloride 104 (96-108) mmol/L Carbon Dioxide 28 (22-29) mmol/L Anion Gap 9 L (12-20) BUN 14 (9-16) mg/dL Creatinine 0.76 (0.5-1.4) mg/dL Estim Creat Clear Calc 134.6 Estimated GFR > 60 Random Glucose 90 (60-115) mg/dL Calcium 9.1 (8.4-10.2) mg/dL Total Bilirubin 0.4 (0.0-1.0) mg/dL Direct Bilirubin 0.1 (0.0-0.5) mg/dL AST 18 (5-31) U/L ALT 20 (0-31) U/L Alkaline Phosphatase 75 (39-117) U/L B-Natriuretic Peptide (<100) pg/mL Total Protein 7.2 (6.5-8.0) g/dL Albumin 3.9 (3.5-5.0) g/dL 01/26/23 Range/Units 11:48 WBC (4.8-10.8) X10*3/uL RBC (4.20-5.50) X10*6/uL Hgb (12.0-16.0) g/dl Hct (37.0-47.0) % MCV (80.0-98.0) fL MCH (27.0-33.0) pg MCHC (31.0-35.0) g/dl RDW (11.0-16.0) % Plt Count (160-400) X10*3/uL MPV (9.4-12.3) fL Immature Gran % (Auto) (0.0-0.4) % Neut % (Auto) (45-73) % Lymph % (Auto) (20-40) % [place] % (Auto) (2-11) % Eos % (Auto) (0-4) % Baso % (Auto) (0-2) % Lymph # (Auto) (1.2-4.9) X10*3/uL [place] # (Auto) (0.1-1.2) X10*3/uL Eos # (Auto) (0.0-0.4) X10*3/uL Baso # (Auto) (0.0-0.2) X10*3/uL Abs Immat Gran (auto) (0.00-0.03) X10*3/uL Absolute Neuts (auto) (2.0-8.3) x10*3/uL Absolute Nucleated RBC (0.0-0.012) X10*3/uL Nucleated RBC % (auto) (0.0-0.2) /100WBC PT (10.0-13.1) SEC INR (0.9-1.1) Sodium (135-145) mmol/L Potassium (3.3-5.1) mmol/L Chloride (96-108) mmol/L Carbon Dioxide (22-29) mmol/L Anion Gap (12-20) BUN (9-16) mg/dL Creatinine (0.5-1.4) mg/dL Estim Creat Clear Calc Estimated GFR Random Glucose (60-115) mg/dL Calcium (8.4-10.2) mg/dL Total Bilirubin (0.0-1.0) mg/dL Direct Bilirubin (0.0-0.5) mg/dL AST (5-31) U/L ALT (0-31) U/L Alkaline Phosphatase (39-117) U/L B-Natriuretic Peptide 16 (<100) pg/mL Total Protein (6.5-8.0) g/dL Albumin (3.5-5.0) g/dL <KELLY Mattson - Last Filed: 01/26/23 11:43> Lab Results 01/26/23 01/26/23 01/26/23 Range/Units 11:48 11:48 11:48 WBC 7.4 (4.8-10.8) X10*3/uL RBC 4.46 (4.20-5.50) X10*6/uL Hgb 12.4 (12.0-16.0) g/dl Hct 39.5 (37.0-47.0) % MCV 88.6 (80.0-98.0) fL MCH 27.8 (27.0-33.0) pg MCHC 31.4 (31.0-35.0) g/dl RDW 14.1 (11.0-16.0) % Plt Count 308 D (160-400) X10*3/uL MPV 9.9 (9.4-12.3) fL Immature Gran % (Auto) 0.3 (0.0-0.4) % Neut % (Auto) 54.0 (45-73) % Lymph % (Auto) 32.2 (20-40) % [place] % (Auto) 9.6 (2-11) % Eos % (Auto) 3.4 (0-4) % Baso % (Auto) 0.5 (0-2) % Lymph # (Auto) 2.4 (1.2-4.9) X10*3/uL [place] # (Auto) 0.7 (0.1-1.2) X10*3/uL Eos # (Auto) 0.3 (0.0-0.4) X10*3/uL Baso # (Auto) 0.0 (0.0-0.2) X10*3/uL Abs Immat Gran (auto) 0.02 (0.00-0.03) X10*3/uL Absolute Neuts (auto) 4.0 (2.0-8.3) x10*3/uL Absolute Nucleated RBC 0.000 (0.0-0.012) X10*3/uL Nucleated RBC % (auto) 0.0 (0.0-0.2) /100WBC PT 11.8 (10.0-13.1) SEC INR 1.0 (0.9-1.1) Sodium 137 (135-145) mmol/L Potassium 4.0 (3.3-5.1) mmol/L Chloride 104 (96-108) mmol/L Carbon Dioxide 28 (22-29) mmol/L Anion Gap 9 L (12-20) BUN 14 (9-16) mg/dL Creatinine 0.76 (0.5-1.4) mg/dL Estim Creat Clear Calc 134.6 Estimated GFR > 60 Random Glucose 90 (60-115) mg/dL Calcium 9.1 (8.4-10.2) mg/dL Total Bilirubin 0.4 (0.0-1.0) mg/dL Direct Bilirubin 0.1 (0.0-0.5) mg/dL AST 18 (5-31) U/L ALT 20 (0-31) U/L Alkaline Phosphatase 75 (39-117) U/L B-Natriuretic Peptide (<100) pg/mL Total Protein 7.2 (6.5-8.0) g/dL Albumin 3.9 (3.5-5.0) g/dL 01/26/23 Range/Units 11:48 WBC (4.8-10.8) X10*3/uL RBC (4.20-5.50) X10*6/uL Hgb (12.0-16.0) g/dl Hct (37.0-47.0) % MCV (80.0-98.0) fL MCH (27.0-33.0) pg MCHC (31.0-35.0) g/dl RDW (11.0-16.0) % Plt Count (160-400) X10*3/uL MPV (9.4-12.3) fL Immature Gran % (Auto) (0.0-0.4) % Neut % (Auto) (45-73) % Lymph % (Auto) (20-40) % [place] % (Auto) (2-11) % Eos % (Auto) (0-4) % Baso % (Auto) (0-2) % Lymph # (Auto) (1.2-4.9) X10*3/uL [place] # (Auto) (0.1-1.2) X10*3/uL Eos # (Auto) (0.0-0.4) X10*3/uL Baso # (Auto) (0.0-0.2) X10*3/uL Abs Immat Gran (auto) (0.00-0.03) X10*3/uL Absolute Neuts (auto) (2.0-8.3) x10*3/uL Absolute Nucleated RBC (0.0-0.012) X10*3/uL Nucleated RBC % (auto) (0.0-0.2) /100WBC PT (10.0-13.1) SEC INR (0.9-1.1) Sodium (135-145) mmol/L Potassium (3.3-5.1) mmol/L Chloride (96-108) mmol/L Carbon Dioxide (22-29) mmol/L Anion Gap (12-20) BUN (9-16) mg/dL Creatinine (0.5-1.4) mg/dL Estim Creat Clear Calc Estimated GFR Random Glucose (60-115) mg/dL Calcium (8.4-10.2) mg/dL Total Bilirubin (0.0-1.0) mg/dL Direct Bilirubin (0.0-0.5) mg/dL AST (5-31) U/L ALT (0-31) U/L Alkaline Phosphatase (39-117) U/L B-Natriuretic Peptide 16 (<100) pg/mL Total Protein (6.5-8.0) g/dL Albumin (3.5-5.0) g/dL <Vargas Read - Last Filed: 01/26/23 14:00> Radiology Impression Radiologist Impression: [place]?Image [place] [id number] Ultrasound Report Signed Patient: Kaia Cadet MR#: [id number] : 1980 Acct:[id number] Age/Sex: 43 / F ADM Date: 01/26/23 Loc: HO.ED Attending Dr: Ordering Physician: Maura Vizcarra Date of Service: 01/26/23 Procedure(s): US venous duplex LE BI Accession Number(s): [id number] cc: Maura Vizcarra~ EXAMINATION:? US VENOUS ULTRASOUND WITH DOPPLER LOWER EXTREMITY, BILATERAL CLINICAL INFORMATION:? Bilateral leg edema and redness. COMPARISON:? None available. TECHNIQUE: Ultrasound of the deep veins is performed from the hip to the calf with compression sonography and color and pulse Doppler assessment. Spectral analysis with color-flow imaging is performed. FINDINGS: RIGHT: There is normal venous compression and respiratory variation and augmented flow. The visualized common femoral vein, superficial femoral vein, profunda femoral vein, popliteal vein, and the trifurcation region shows no evidence of deep venous thrombosis. ? There is no significant popliteal fossa cyst. LEFT: There is normal venous compression and respiratory variation and augmented flow. The visualized common femoral vein, superficial femoral vein, profunda femoral vein, popliteal vein, and the trifurcation region shows no evidence of deep venous thrombosis. ? There is no significant popliteal fossa cyst If the patient's symptoms persist, followup ultrasound in 5 days 7 days might be of value to exclude proximal propagation from a non-visualized calf vein. US/US venous duplex LE BI IMPRESSION: No DVT demonstrated in the bilateral lower extremity. Dictated By: Benji Del Rosario MD Signed By: <Electronically signed by Benji Del Rosario MD in [place]> 01/26/23 1327 <Vargas Andradeens - Last Filed: 01/26/23 14:00> Discharge Plan Discharge Clinical Impression: Dermatitis <KELLY Mattson - Last Filed: 01/26/23 11:43> Patient Disposition: Home, Self-Care <KELLY Mattson - Last Filed: 01/26/23 11:43> Instructions: Dermatitis (ED) <KELLY Mattson - Last Filed: 01/26/23 11:43> Additional Instructions: Ultrasound is negative for blood clots in her lower extremities Symptoms are consistent with a dermatitis Medications as directed Call PCP for follow-up and further evaluation <KELLY Mattson - Last Filed: 01/26/23 11:43> Prescriptions: New prednisone 20 mg tablet 40 mg PO DAILY 5 Days Qty: 10 0RF diphenhydramine HCl [Allergy (diphenhydramine)] 25 mg tablet 25 mg PO TID PRN (Reason: itching) Qty: 20 0RF No Action cetirizine 10 mg tablet 10 mg PO DAILY PRN (Reason: allergy symptoms) 90 Days Qty: 90 3RF metoprolol succinate 25 mg tablet extended release 24 hr 25 mg PO DAILY Qty: 30 11RF flecainide 50 mg tablet 50 mg PO BID 90 Days Qty: 180 1RF fluticasone propionate 50 mcg/actuation spray,suspension 1 spray intranasal DAILY 30 Days Qty: 16 3RF Rx Instructions: administer into each nostril omeprazole 20 mg capsule,delayed release(DR/EC) 20 mg PO DAILY 90 Days Qty: 90 0RF <KELLY Mattson - Last Filed: 01/26/23 11:43>
[2023-01-26 11:59] LABS: MANUAL DIFF FLAG NO
[2023-01-26 12:04] LABS: Basophils Percent Auto 0.5 % (0-2); Eosinophils Absolute Auto 0.3 X10*3/uL (0.0-0.4); Eosinophils Percent Auto 3.4 % (0-4); Hematocrit 39.5 % (37.0-47.0); Hemoglobin 12.4 g/dl (12.0-16.0); Imm Gran Abs Auto 0.02 X10*3/uL (0.00-0.03); Imm Gran Pct Auto 0.3 % (0.0-0.4); Lymphocytes Absolute Auto 2.4 X10*3/uL (1.2-4.9); Lymphocytes Percent Auto 32.2 % (20-40); Mean Corpuscular HGB Conc 31.4 g/dl (31.0-35.0); Mean Corpuscular Hemoglobin 27.8 pg (27.0-33.0); Mean Corpuscular Volume 88.6 fL (80.0-98.0); Mean Platelet Volume 9.9 fL (9.4-12.3); Monocytes Absolute Auto 0.7 X10*3/uL (0.1-1.2); Monocytes Percent Auto 9.6 % (2-11); Platelet Count 308 X10*3/uL (160-400); Red Blood Count 4.46 X10*6/uL (4.20-5.50); Red Cell Distribution Width 14.1 % (11.0-16.0); White Blood Count 7.4 X10*3/uL (4.8-10.8)
[2023-01-26 12:05] LABS: Prothrombin Time 11.8 SEC (10.0-13.1)
[2023-01-26 12:22] LABS: Alanine Aminotransferase 20 U/L (0-31); Albumin Level 3.9 g/dL (3.5-5.0); Alkaline Phosphatase 75 U/L (39-117); Anion Gap 9 (12-20); Aspartate Amino Transferase 18 U/L (5-31); Bilirubin Direct 0.1 mg/dL (0.0-0.5); Bilirubin Total 0.4 mg/dL (0.0-1.0); Blood Urea Nitrogen 14 mg/dL (9-16); Calcium 9.1 mg/dL (8.4-10.2); Carbon Dioxide 28 mmol/L (22-29); Chloride 104 mmol/L (96-108); Creatinine Clr Calc Pharmacy 134.6; Estimated Glomerular Filt Rate > 60; Glucose Random 90 mg/dL (60-115); Sodium 137 mmol/L (135-145); Total Protein 7.2 g/dL (6.5-8.0)
[2023-01-26 12:28] LABS: B Type Natriuretic Peptide 16 pg/mL (<100)
--- NOTE | 2023-01-26 12:31 | ED.GENADULT ---
HPI - General Adult General Chief complaint: General Medical Stated complaint: Swollen legs/redness/itchiness Time Seen by Provider: 01/26/23 12:30 Related Data Previous Rx's Medication Instructions Recorded cetirizine 10 mg tablet 10 mg PO DAILY PRN allergy 07/22/22 symptoms 90 days #90 tabs metoprolol succinate 25 mg 25 mg PO DAILY #30 tabs 08/21/22 tablet,extended release 24 hr flecainide 50 mg tablet 50 mg PO BID 90 days #180 tabs 12/21/22 omeprazole 20 mg capsule,delayed 20 mg PO DAILY 90 days #90 caps 12/27/22 release fluticasone propionate 50 1 spray intranasal DAILY 30 days 01/05/23 mcg/actuation nasal #16 grams spray,suspension Allergies Allergy/AdvReac Type Severity Reaction Status Date / Time oxycodone [OXYCODONE] Allergy Intermediate PALPITATIONS, Verified 01/17/23 15:42 tachycardia, SOB,agitation PMFSH Past Medical History Medical History Allergic rhinitis Family history of pancreatic cancer Lumbar pain Numbness of left hand Obesity Obesity (BMI 35.0-39.9 without comorbidity) PAF (paroxysmal atrial fibrillation) Skin lesions Trigger finger Upper back pain Surgical History History of carpal tunnel release History of lumpectomy of right breast History of tubal ligation Family History Family History Father Diabetes Hypertension Mother Diabetes Maternal Grandmother Colon cancer Maternal Aunt Breast cancer Paternal Uncle Pancreas cancer Family/Other Bone cancer Social History Social History Housing: Apartment Alcohol intake: current Alcohol intake frequency: holidays/special occasions only Alcohol type: wine and hard liquor Patient Tobacco Use Status: Former Tobacco user e-Cigarette/Vaping Use: Never Used Second Hand Smoke Exposure: No Advance Directives: No Advance Directives Information Provided: Yes service: No Current occupational status: employed Current occupation: [employer] - right handed Current occupational exposures/hazards: No Cognitive needs: No Hearing needs: No Vision needs: Yes Physical Exam ED Vital Signs: Vital Signs - 24 hr 01/26/23 11:39 Temperature 96.7 F L Pulse Rate 80 Respiratory Rate 17 Blood Pressure 110/76 Pulse Oximetry 98 Oxygen Delivery Method Room Air BMI result Body Mass Index 40.4 Medical Decision Making Lab Data 01/26/23 11:48 01/26/23 11:48 Labs: Lab Results 01/26/23 01/26/23 01/26/23 Range/Units 11:48 11:48 11:48 WBC 7.4 (4.8-10.8) X10*3/uL RBC 4.46 (4.20-5.50) X10*6/uL Hgb 12.4 (12.0-16.0) g/dl Hct 39.5 (37.0-47.0) % MCV 88.6 (80.0-98.0) fL MCH 27.8 (27.0-33.0) pg MCHC 31.4 (31.0-35.0) g/dl RDW 14.1 (11.0-16.0) % Plt Count 308 D (160-400) X10*3/uL MPV 9.9 (9.4-12.3) fL Immature Gran % (Auto) 0.3 (0.0-0.4) % Neut % (Auto) 54.0 (45-73) % Lymph % (Auto) 32.2 (20-40) % Woodson % (Auto) 9.6 (2-11) % Eos % (Auto) 3.4 (0-4) % Baso % (Auto) 0.5 (0-2) % Lymph # (Auto) 2.4 (1.2-4.9) X10*3/uL Woodson # (Auto) 0.7 (0.1-1.2) X10*3/uL Eos # (Auto) 0.3 (0.0-0.4) X10*3/uL Baso # (Auto) 0.0 (0.0-0.2) X10*3/uL Abs Immat Gran (auto) 0.02 (0.00-0.03) X10*3/uL Absolute Neuts (auto) 4.0 (2.0-8.3) x10*3/uL Absolute Nucleated RBC 0.000 (0.0-0.012) X10*3/uL Nucleated RBC % (auto) 0.0 (0.0-0.2) /100WBC PT 11.8 (10.0-13.1) SEC INR 1.0 (0.9-1.1) Sodium 137 (135-145) mmol/L Potassium 4.0 (3.3-5.1) mmol/L Chloride 104 (96-108) mmol/L Carbon Dioxide 28 (22-29) mmol/L Anion Gap 9 L (12-20) BUN 14 (9-16) mg/dL Creatinine 0.76 (0.5-1.4) mg/dL Estim Creat Clear Calc 134.6 Estimated GFR > 60 Random Glucose 90 (60-115) mg/dL Calcium 9.1 (8.4-10.2) mg/dL Total Bilirubin 0.4 (0.0-1.0) mg/dL Direct Bilirubin 0.1 (0.0-0.5) mg/dL AST 18 (5-31) U/L ALT 20 (0-31) U/L Alkaline Phosphatase 75 (39-117) U/L B-Natriuretic Peptide (<100) pg/mL Total Protein 7.2 (6.5-8.0) g/dL Albumin 3.9 (3.5-5.0) g/dL 01/26/23 Range/Units 11:48 WBC (4.8-10.8) X10*3/uL RBC (4.20-5.50) X10*6/uL Hgb (12.0-16.0) g/dl Hct (37.0-47.0) % MCV (80.0-98.0) fL MCH (27.0-33.0) pg MCHC (31.0-35.0) g/dl RDW (11.0-16.0) % Plt Count (160-400) X10*3/uL MPV (9.4-12.3) fL Immature Gran % (Auto) (0.0-0.4) % Neut % (Auto) (45-73) % Lymph % (Auto) (20-40) % Woodson % (Auto) (2-11) % Eos % (Auto) (0-4) % Baso % (Auto) (0-2) % Lymph # (Auto) (1.2-4.9) X10*3/uL Woodson # (Auto) (0.1-1.2) X10*3/uL Eos # (Auto) (0.0-0.4) X10*3/uL Baso # (Auto) (0.0-0.2) X10*3/uL Abs Immat Gran (auto) (0.00-0.03) X10*3/uL Absolute Neuts (auto) (2.0-8.3) x10*3/uL Absolute Nucleated RBC (0.0-0.012) X10*3/uL Nucleated RBC % (auto) (0.0-0.2) /100WBC PT (10.0-13.1) SEC INR (0.9-1.1) Sodium (135-145) mmol/L Potassium (3.3-5.1) mmol/L Chloride (96-108) mmol/L Carbon Dioxide (22-29) mmol/L Anion Gap (12-20) BUN (9-16) mg/dL Creatinine (0.5-1.4) mg/dL Estim Creat Clear Calc Estimated GFR Random Glucose (60-115) mg/dL Calcium (8.4-10.2) mg/dL Total Bilirubin (0.0-1.0) mg/dL Direct Bilirubin (0.0-0.5) mg/dL AST (5-31) U/L ALT (0-31) U/L Alkaline Phosphatase (39-117) U/L B-Natriuretic Peptide 16 (<100) pg/mL Total Protein (6.5-8.0) g/dL Albumin (3.5-5.0) g/dL Radiology Impression Radiologist Impression: ? Chart Viewer Orders Diagnostics Subcategory All Activity ??:?? All Time ??:?? All Subcategories Filter Laboratory Imaging Microbiology Pathology Blood Bank Tests Cardiovascular Other Specialty DATE TYPE STATUS REF RANGE/AUTHOR Hx Today 12:10 Venous Duplex Signed Benji Del Rosario 09/14/22 15:45 Mammogram Screening Signed Saeid East 09/09/21 15:26 Mammogram Screening Signed Mango Vaca 06/24/21 06:16 Lumbar Spine X-Ray Signed Seven Castano 03/30/21 09:00 Mammogram Diagnostic Signed Saeid East 10/14/20 21:07 Chest X-Ray Signed Roberto Joiner 09/30/20 07:59 Mammogram, Additional Views Signed Mango Vaca 09/08/20 09:44 Mammogram Screening Signed Saeid East Joannie ED 43, F?1980 MRN#? [id number] REG ER,?Emergency Minor Care??EMC Willis 4?-EMCH4? 5ft 9in 124.2kg BMI: 40.4kg/m? General Medical Acc#? [id number] Resus Status Not Ordered No Hx Avail Allergies oxycodone (OXYCODONE) PALPITATIONS, tachycardia, SOB,agitation Problems ? ONSET Family history of pancreatic cancer Skin lesions Paresthesia Skin tag Physical exam Essential hypertension Elevated blood pressure reading without diagnosis of hypertension Obesity (BMI 35.0-39.9 without comorbidity) JORGE (obstructive sleep apnea) Environmental and seasonal allergies Physical exam ~08/30/21 Lumbar pain Moderate obstructive sleep apnea Encounter for monitoring anti-arrhythmic therapy PAF (paroxysmal atrial fibrillation) Upper back pain Carpal tunnel syndrome of left wrist Trigger finger, right middle finger Trigger finger of right thumb Trigger finger of left thumb Trigger finger Numbness of left hand Allergic rhinitis Obesity Home Meds Not Confirmed Prescription Monitoring Program MEDICATIONS (INSTRUCTIONS) LAST TAKEN Active ??cetirizine 10 mg tablet ??10 mgPODAILYPRNallergy [id number] days#90 tabs ??flecainide 50 mg tablet ??50 [id number] days#180 tabs ??fluticasone propionate 50 mcg/actuation nasal spray,suspension ??1 [id number] days#16 grams ??metoprolol succinate 25 mg tablet,extended release 24 hr ??25 mgPODAILY#30 tabs ??omeprazole 20 mg capsule,delayed release ??20 [id number] days#90 caps Triage Note per pt - sena lower leg rash and swelling/itching x 6 days ED EMS Hand-Off No Data to Display Orders Snapshot LABORATORY B Type Natriuretic Peptide Stat 16 pg/mL (<100)? Prothrombin Time INR Stat Completed Basic Metabolic Panel Stat Abnormal Complete Blood Count Auto Diff Stat Completed Liver Panel Stat Completed ULTRASOUND US venous duplex LE BI Stat Completed My Widget No Data to Display Lab Results Last 24 Hrs Most Recent Hematology WBC (4.8-10.8) 7.4 X10*3/uL Today 11:48 RBC (4.20-5.50) 4.46 X10*6/uL Today 11:48 Hgb (12.0-16.0) 12.4 g/dl Today 11:48 Hct (37.0-47.0) 39.5 % Today 11:48 MCV (80.0-98.0) 88.6 fL Today 11:48 MCH (27.0-33.0) 27.8 pg Today 11:48 MCHC (31.0-35.0) 31.4 g/dl Today 11:48 RDW (11.0-16.0) 14.1 % Today 11:48 Plt Count (160-400) 308 X10*3/uL??? Today 11:48 MPV (9.4-12.3) 9.9 fL Today 11:48 Immature Gran % (Auto) (0.0-0.4) 0.3 % Today 11:48 Neut % (Auto) (45-73) 54.0 % Today 11:48 Lymph % (Auto) (20-40) 32.2 % Today 11:48 Woodson % (Auto) (2-11) 9.6 % Today 11:48 Eos % (Auto) (0-4) 3.4 % Today 11:48 Baso % (Auto) (0-2) 0.5 % Today 11:48 Lymph # (Auto) (1.2-4.9) 2.4 X10*3/uL Today 11:48 Woodson # (Auto) (0.1-1.2) 0.7 X10*3/uL Today 11:48 Eos # (Auto) (0.0-0.4) 0.3 X10*3/uL Today 11:48 Baso # (Auto) (0.0-0.2) 0.0 X10*3/uL Today 11:48 Abs Immat Gran (auto) (0.00-0.03) 0.02 X10*3/uL Today 11:48 Absolute Neuts (auto) (2.0-8.3) 4.0 x10*3/uL Today 11:48 Absolute Nucleated RBC (0.0-0.012) 0.000 X10*3/uL Today 11:48 Nucleated RBC % (auto) (0.0-0.2) 0.0 /100WBC Today 11:48 Coagulation PT (10.0-13.1) 11.8 SEC Today 11:48 INR (0.9-1.1) 1.0? Today 11:48 Chemistry Sodium (135-145) 137 mmol/L Today 11:48 Potassium (3.3-5.1) 4.0 mmol/L Today 11:48 Chloride (96-108) 104 mmol/L Today 11:48 Carbon Dioxide (22-29) 28 mmol/L Today 11:48 Anion Gap (12-20) 9 L Today 11:48 BUN (9-16) 14 mg/dL Today 11:48 Creatinine (0.5-1.4) 0.76 mg/dL Today 11:48 Estim Creat Clear Calc 134.6? Today 11:48 Estimated GFR > 60? Today 11:48 Random Glucose (60-115) 90 mg/dL Today 11:48 Calcium (8.4-10.2) 9.1 mg/dL Today 11:48 Total Bilirubin (0.0-1.0) 0.4 mg/dL Today 11:48 Direct Bilirubin (0.0-0.5) 0.1 mg/dL Today 11:48 AST (5-31) 18 U/L Today 11:48 ALT (0-31) 20 U/L Today 11:48 Alkaline Phosphatase (39-117) 75 U/L Today 11:48 B-Natriuretic Peptide (<100) 16 pg/mL Today 11:48 Total Protein (6.5-8.0) 7.2 g/dL Today 11:48 Albumin (3.5-5.0) 3.9 g/dL Today 11:48 Diagnostic Imaging Reports Venous Duplex Signed Today Diagnostic Departmental Reports No Data to Display Vitals - Initial & Most Recent CURRENT Today 11:39 BP 110/76 Pulse 80 Resp 17 Temp 96.7 F L O2 Sat 98 O2 Delivery Room Air Diagnostics Reports Kaia Cadet??43??F??1980 ? Allergy/Adv: oxycodone Close Venous Duplex (Signed) Benji Del Rosario - 01/26/23 Mammogram Screening (Signed) Saeid East - 09/14/22 Mammogram Screening (Signed) Mango Vaca - 09/09/21 Lumbar Spine X-Ray (Signed) Seven Castano - 06/24/21 Mammogram Diagnostic (Signed) KitaWilianSaeid - 03/30/21 Chest X-Ray (Signed) Roberto Joiner - 10/14/20 Mammogram, Additional Views (Signed) Mango Vaca - 09/30/20 Mammogram Screening (Signed) KitaWilianSaeid - 09/08/20 Launch?Image [place] [id number] Ultrasound Report Signed Patient: Kaia Cadet MR#: [id number] : 1980 Acct:[id number] Age/Sex: 43 / F ADM Date: 01/26/23 Loc: .ED Attending Dr: Ordering Physician: Maura Vizcarra Date of Service: 01/26/23 Procedure(s): US venous duplex LE BI Accession Number(s): [id number] cc: Maura Vizcarra~ EXAMINATION:? US VENOUS ULTRASOUND WITH DOPPLER LOWER EXTREMITY, BILATERAL CLINICAL INFORMATION:? Bilateral leg edema and redness. COMPARISON:? None available. TECHNIQUE: Ultrasound of the deep veins is performed from the hip to the calf with compression sonography and color and pulse Doppler assessment. Spectral analysis with color-flow imaging is performed. FINDINGS: RIGHT: There is normal venous compression and respiratory variation and augmented flow. The visualized common femoral vein, superficial femoral vein, profunda femoral vein, popliteal vein, and the trifurcation region shows no evidence of deep venous thrombosis. ? There is no significant popliteal fossa cyst. LEFT: There is normal venous compression and respiratory variation and augmented flow. The visualized common femoral vein, superficial femoral vein, profunda femoral vein, popliteal vein, and the trifurcation region shows no evidence of deep venous thrombosis. ? There is no significant popliteal fossa cyst If the patient's symptoms persist, followup ultrasound in 5 days 7 days might be of value to exclude proximal propagation from a non-visualized calf vein. US/US venous duplex LE BI IMPRESSION: No DVT demonstrated in the bilateral lower extremity. Dictated By: Benji Del Rosario MD Signed By: <Electronically signed by Benji Del Rosario MD in OV> 01/26/23 1327 DD/ 1210 TD/TT:? Asset Management Coordinator: ZACH Discharge Plan Discharge Prescriptions: No Action cetirizine 10 mg tablet 10 mg PO DAILY PRN (Reason: allergy symptoms) 90 Days Qty: 90 3RF metoprolol succinate 25 mg tablet extended release 24 hr 25 mg PO DAILY Qty: 30 11RF flecainide 50 mg tablet 50 mg PO BID 90 Days Qty: 180 1RF fluticasone propionate 50 mcg/actuation spray,suspension 1 spray intranasal DAILY 30 Days Qty: 16 3RF Rx Instructions: administer into each nostril omeprazole 20 mg capsule,delayed release(DR/EC) 20 mg PO DAILY 90 Days Qty: 90 0RF
== END 2023-01-26 14:24 | disposition home or self-care (01) ==
PROVIDERS: Physician Assistant; Emergency Provider Emergency Medicine; PCP Internal Medicine
DX: L30.9 Dermatitis, unspecified (principal); R60.0 Localized edema; I10 Essential (primary) hypertension; I48.0 Paroxysmal atrial fibrillation; Z79.899 Other long term (current) drug therapy
CPT/HCPCS: 36415; 80048; 80076; 83880; 85025; 85610; 93970; 99282; 99284

== ENCOUNTER 2023-02-15 11:12 | Outpatient (REF) | payer OTHER, SELFPAY | END 2023-02-15 11:13 | disposition home or self-care (01) | LOC: HO.LNP 11:12 | PROVIDERS: PCP Internal Medicine; Referring Provider Internal Medicine; Visit Provider Surgery | DX: L98.9 Disorder of the skin and subcutaneous tissue, unspecified (principal) | CPT/HCPCS: 11400; 11401; 88304 ==

== ENCOUNTER 2023-02-21 10:27 | Outpatient (REF) | payer OTHER, SELFPAY ==
--- NOTE | 2023-02-21 09:30 | EMG_ITS ---
Please see scanned EMG / Nerve Conduction Report. MTDD
== END 2023-02-21 10:28 | disposition home or self-care (01) ==
LOC: HO.NEURO 10:27
PROVIDERS: PCP Internal Medicine; Visit Provider Internal Medicine
DX: R20.2 Paresthesia of skin (principal)
CPT/HCPCS: 95885; 95913

== ENCOUNTER 2023-09-18 15:45 | Outpatient (AMB) | payer OTHER, SELFPAY ==
--- NOTE | 2023-09-18 15:47 | A.OFFPC_ITS ---
Vital Signs 09/18/23 15:48 Height 5 ft 9 in Weight 281 lb BMI 41.5 BP 120/82 Blood Pressure Location Lt brachial Position Sitting Intake Visit Reasons: Annual Exam Intake Note: Patient here for a physical exam Luster Applicator Required: No Accompanied by: Self / Same As Patient Allergies oxycodone [OXYCODONE] Allergy (Intermediate, Verified 09/18/23 15:59) PALPITATIONS, tachycardia, SOB,agitation Medication List - Last Reconciled 09/18/23 by Pamela Sellers MD cetirizine 10 mg PO DAILY PRN 90 days clotrimazole-betamethasone 1-0.05 % 1 appl topical BID 2 weeks diphenhydramine HCl (Allergy (diphenhydramine)) 25 mg PO TID PRN flecainide 50 mg PO BID 90 days fluticasone propionate 50 mcg/actuation 1 spray intranasal DAILY metoprolol succinate ER 25 mg PO DAILY omeprazole 20 mg PO DAILY 90 days Tobacco use date assessed: 12/27/22 Dental Screening Dental Screen Date: 09/18/23 Did you have a dental visit in the last 12 months?: No Did you have a dental problem in the last 6 months where you did not have access to dental care?: No Was dental information given to patient?: Patient has dentist HPI HPI Comments History of Present Illness Details This is a 43-year-old female with paroxysmal atrial fibrillation that comes for her physical exam. Last mammogram was August 2022. Last Pap smear was over 3 years ago. No chest pain or shortness of breath. Complains of occasional leg swelling which is not present at the moment. [facility] Medical History Family history of pancreatic cancer Skin lesions Obesity (BMI 35.0-39.9 without comorbidity) Lumbar pain PAF (paroxysmal atrial fibrillation) Upper back pain Trigger finger Numbness of left hand Allergic rhinitis Obesity Surgical History History of surgical removal of skin lesion (~02/15/23) History of carpal tunnel release History of lumpectomy of right breast History of tubal ligation Family History (Updated 09/18/23 @ 16:03 by Pamela Sellers MD) Father Diabetes Hypertension Parkinson disease Mother Diabetes CVA (cerebral vascular accident) Maternal Grandmother Colon cancer Maternal Aunt Breast cancer Paternal Uncle Pancreas cancer Family/Other Bone cancer Social History Housing: Apartment Alcohol intake: current Alcohol intake frequency: holidays/special occasions only Alcohol type: wine and hard liquor Patient Tobacco Use Status: Former Tobacco user e-Cigarette/Vaping Use: Never Used Second Hand Smoke Exposure: No service: No Current occupational status: employed Current occupation: [employer] - right handed Current occupational exposures/hazards: No Cognitive needs: No Hearing needs: No Vision needs: Yes Questionnaire Thrive Questionnaire Date Thrive assessed: 12/27/22 FRITZ-7 AMB Questionnaire FRITZ-7 Date FRITZ - 7 assessed: 12/27/22 Source: Developed by Drs. Adrien Hollingsworth, Tiffanie Alford, Damien Zavala and colleagues, with an educational dede from [employer]. Review of Systems Const All systems reviewed & are unremarkable except as noted in HPI and below Eyes Reports no additional complaints, Denies change in vision and Denies other visual disturbances Card Denies chest pain at rest, Denies chest pain with activity, Denies edema, Denies irregular heart rhythm, Denies claudication, Denies dyspnea, Denies dyspnea on exertion, Denies orthopnea, Denies paroxysmal nocturnal dyspnea and Denies slow heart rate Resp Denies cough, Denies dyspnea and Denies dyspnea on exertion GI Denies abdominal pain, Denies change in bowel habits, Denies excessive flatus, Denies nausea and Denies vomiting Denies urinary incontinence, Denies urinary hesitancy and Denies urinary urgency Musc Denies abnormal gait, Denies atrophy, Denies deformity and Denies limited range of motion Skin/Breast Denies bleeding lesions, Denies changing lesions and Denies rash Neuro Denies abnormal gait and Denies lack of coordination Physical exam (Primary Care) Vital Signs: Last Vital Signs BP 120/82 09/18/23 15:48 BMI result Body Mass Index 41.5 Tobacco/Smoking Status: Tobacco use Status Tobacco use date assessed 12/27/22 09/18/23 15:54 Patient Tobacco Use Status Former Tobacco user 09/18/23 15:54 Tobacco use type 01/04/23 15:30 e-Cigarette/Vaping Use Never Used 09/18/23 15:54 Thrive Assessment: Date of Thrive Assessment Date Thrive assessed 12/27/22 09/18/23 15:54 Const Orientation/consciousness: patient oriented x3 HENWI Head: Yes normal to inspection, Yes normocephalic and Yes atraumatic Ears: external ears normal Eyes General: appearance normal, both eyes and all related structures Eyelids: Yes eyelids normal Conjunctivae: conjunctivae normal Neck Neck: Yes normal visual inspection and Yes supple Resp Effort & Inspection: normal respiratory effort Auscultation: clear to auscultation bilaterally Cardio Jugular venous distension: no JVD Rate: regular rate Rhythm: regular rhythm Heart sounds: S1 normal heart sound present and S2 normal heart sound present GI Inspection: Yes normal to inspection Palpation (GI): Soft to palpation and nontender Auscultation: normal bowel sounds Skin General skin exam: no rashes or lesions noted Neuro General: patient oriented x3 and no focal motor deficits Extrem General: Yes full ROM Psych Appearance: grossly normal Office Procedures Flu Questionnaire Does the patient have a severe egg allergy?: No Does the patient have severe life threatening allergies?: No Does the patient have a fever or illness today?: No Has the patient ever had Guillain-Blairs Syndrome?: No Has the patient ever had any past reaction to a flu shot?: No Immunizations flu vacc [id number] 6mos up(PF) 60 mcg(15 mcgx4)/0.5 mL IM syringe Performing Provider: Pamela Sellers MD Performing Location: [facility] Administered by: GENNA Jaquez on 09/18/23 16:17 Dose Route Admin Location Dispensed Lot Number Expiration Date [employer] 0.5 mL IM Right Deltoid 0.5 mL [id number] 03/30/24 [id number] [employer] VIS Given Date VIS Provided VIS Publication Date 09/18/23 Single Vaccine 21 Eligibility Eligibility Date Funding Source Not [facility] Eligible 09/18/23 Private Assessment and Plan Assessment & Plan (1) Physical exam: Code(s): Z00.00 - Encounter for general adult medical examination without abnormal findings Plan: Repeat in a year. (2) PAF (paroxysmal atrial fibrillation): Code(s): I48.0 - Paroxysmal atrial fibrillation Plan: Continue metoprolol and flecainide. Follow-up with Cardiology. Orders: Orders Complete Blood Count Auto Diff Today K21.9 - Gastro-esophageal reflux disease without esophagitis Thyroid Stimulating Hormone Today I48.0 - Paroxysmal atrial fibrillation CA echo transthoracic complete Today R01.1 - Cardiac murmur, unspecified Influenza [id number] Immunization Today Z23 - Encounter for immunization Lipid Panel Today E78.5 - Hyperlipidemia, unspecified Comprehensive Ear[place]. Panel Fast Today K21.9 - Gastro-esophageal reflux disease without esophagitis Vitamin D 25-OH Total Today E55.9 - Vitamin D deficiency, unspecified Vitamin B12 and Folate Today E53.8 - Deficiency of other specified B group vitamins Referrals FLOOR TECHNICIAN Referral Z12.4 - Encounter for screening for malignant neoplasm of cervix Coding Level of Care Code Est Pt Prev Care 40-64y([id number]) Diagnoses Physical exam Z00.00 PAF (paroxysmal atrial fibrillation) I48.0 Time Spent (min) 32
[2023-09-18 15:48] VITALS: BP 120/82; BMI 41.5
== END 2023-09-18 16:18 | disposition home or self-care (01) ==
PROVIDERS: Visit Provider Internal Medicine
DX: Z23 Encounter for immunization (principal); Z00.00 Encounter for general adult medical examination without abnormal findings; I48.0 Paroxysmal atrial fibrillation
CPT/HCPCS: 90471; 90686; 99396

== ENCOUNTER 2023-09-19 15:49 | Outpatient (REF) | payer OTHER, SELFPAY | END 2023-09-19 15:50 | disposition home or self-care (01) | LOC: HO.MAMMO 15:49 | PROVIDERS: PCP Internal Medicine; Visit Provider Internal Medicine | DX: Z12.31 Encounter for screening mammogram for malignant neoplasm of breast (principal) | CPT/HCPCS: 77063; 77067 ==

== ENCOUNTER → 2023-09-19 16:00 | Outpatient (BNV) | payer OTHER, SELFPAY | PROVIDERS: PCP Internal Medicine; Visit Provider Radiology Diagnostic Radiology | DX: Z12.31 Encounter for screening mammogram for malignant neoplasm of breast (principal) | CPT/HCPCS: 77063; 77067 ==

== ENCOUNTER 2023-10-06 07:21 | Outpatient (REF) | payer OTHER, SELFPAY | END 2023-10-06 07:22 | disposition home or self-care (01) | LOC: HO.LAB 07:21 | PROVIDERS: PCP Internal Medicine; Visit Provider Internal Medicine | DX: K21.9 Gastro-esophageal reflux disease without esophagitis (principal); I48.0 Paroxysmal atrial fibrillation; E78.5 Hyperlipidemia, unspecified; E55.9 Vitamin D deficiency, unspecified; E53.8 Deficiency of other specified B group vitamins | CPT/HCPCS: 36415; 80053; 80061; 82306; 82607; 82746; 84443; 85025 ==

== ENCOUNTER → 2023-10-11 14:37 | Outpatient (REF) | payer OTHER, SELFPAY ==
--- NOTE | 2023-10-11 14:40 | CA_ITS ---
Transthoracic Echocardiogram Patient (Last, First, Middle): Kaia Cadet, Gender: Female Date of : 1980 Age: 43 Procedure Date: 10/11/2023 Procedure Type: Transthoracic Echocardiogram Location: OP Height: 175.26 cm Weight: 127.46 kg BSA: 2.39 m2 Heart Rate: 79 bpm BP: 115 / 75 mmHg Track Repairer: FREDY Referring MD: Pamela Sellers MD Data Abstractor: Oscar Corrigan MD Symptoms: R01.1 - Cardiac murmur, unspecified Study Quality: Fair ECG Rhythm: Sinus Conclusions: - Essentially normal study with mild left ventricular hypertrophy noted Findings Left Ventricle Normal left ventricular size and systolic function. There is mildly increased left ventricular wall thickness. The visually estimated ejection fraction is between 60-65%. Spectral Doppler is indicative of a normal filling pattern. Peak GLS is -18.3%, within normal limits. Right Ventricle Normal right ventricular cavity size and systolic function. Atria Both atria are normal in size. Interatrial shunt cannot be excluded. Aortic Valve The aortic valve structure and function is likely normal. There is no aortic valve stenosis. There is no aortic valve regurgitation. Mitral Valve Normal mitral valve structure and function. There is trace mitral valve regurgitation. There is no mitral valve stenosis. Pulmonic Valve The pulmonic valve is likely normal. Tricuspid Valve Normal tricuspid valve structure. There is trace tricuspid valve regurgitation. The right ventricular systolic pressure is normal. The right ventricular systolic pressure is 18 mmHg. Normal right atrial pressure. There is no evidence of pulmonary hypertension. Great Vessels All visible segments of the aorta are normal in size. The pulmonary artery was not well visualized. Venous The inferior vena cava is normal in size and collapses greater than 50% with inspiration. Pericardium/Pleural There is no evidence of pericardial effusion. Measurements 2D Linear Measurements IVSd: 1.29 0.6-0.9/0.6-1.0 cm LVIDd: 4.71 3.9-5.3/4.2-5.9 cm LVIDd Index: 1.97 2.4-3.2/2.2-3.1 cm/m2 LVIDs: 3.00 2.0-3.6 cm LVPWd: 1.19 0.7-1.1 cm LA Diam: 3.80 2.7-3.8/3.0-4.0 cm LAIDs Index: 1.59 1.5-2.3 cm/m2 LV Mass: 277.90 67-162/88-224 g LV Mass Index: 116.27 43-95/49-115 g/m2 LVOT Diam: 1.90 3.0+(-)1.3 cm 2D Systolic Function EF 4C: 66.60 >55% EF 2C: 52.70 >55% EF BiP: 61.70 >55% Mitral Valve MV Pk E: 0.96 MV PK A: 0.67 MV Decel Time: 230.00 E/A: 1.40 E'Lateral: 12.80 E'Medial: 9.90 E/E' Med: 9.70 E/E' Lat: 7.50 PHT: 67.00 MVA PHT: 3.28 Decel [place]: 4.15 Aortic Valve AoV Pk Narciso: 1.46 AoV Mn Narciso: 1.01 AoV VTI: 0.33 AoV Pk Grad: 9.00 Aov Mn Grad: 5.00 TALAT Cont.VTI: 2.23 LVOT LVOT Pk Narciso: 1.11 LVOT Mn Narciso: 0.82 LVOT VTI: 0.26 LVOT Pk Grad: 5.00 LVOT Mn Grad: 3.00 LVOT Diam: 1.90 LVOT Area: 2.84 Diastolic Function MV Pk E: 0.96 MV Pk A: 0.67 E/A: 1.40 E'Medial: 9.90 E/E' Med: 9.70 E' Laterial: 12.80 E/E' Lat: 7.50 Right Ventricle TAPSE (mm): 25.40 TVS' Narciso: 13.70 Tricuspid Valve TR Pk Narciso: 1.94 TR Pk Grad: 15.00 RA Press: 3.00 RVSP: 18.00 Great Vessels Aorta Sinus of Valsalva: 3.10 2.0-3.5 cm Ao Asc: 2.90 2.1-3.4 cm Pulmonary Valve PV Pk Narciso: 0.98 Peak PV Grad: 4.00 Updated in Other Vendor System with Status of Final Oscar Corrigan MD electronically signed on 10/12/2023 12:16:44 PM with status of Final
== END ==
LOC: HO.CARD 14:37
PROVIDERS: PCP Internal Medicine; Visit Provider Internal Medicine
DX: R01.1 Cardiac murmur, unspecified (principal)
CPT/HCPCS: 93306; 93356

== ENCOUNTER → 2023-10-11 14:40 | Outpatient (BNV) | payer OTHER, SELFPAY | PROVIDERS: PCP Internal Medicine; Visit Provider Internal Medicine Cardiovascular Disease | DX: R01.1 Cardiac murmur, unspecified (principal) | CPT/HCPCS: 93306 ==

== ENCOUNTER 2023-12-19 08:12 | Emergency (ER) | payer OTHER, SELFPAY | END 2023-12-19 09:01 | disposition left against medical advice (07) | PROVIDERS: Emergency Provider Emergency Medicine; PCP Internal Medicine | DX: J04.0 Acute laryngitis (principal) ==

== ENCOUNTER 2023-12-19 08:21 | Outpatient (REF) | payer OTHER, SELFPAY ==
[2023-12-19 09:21] LABS: Influenza A PCR NEGATIVE (Negative); Influenza B PCR NEGATIVE (Negative); Resp Syncy Virus RNA Qual PCR NEGATIVE (Negative); SARS COV2 PCR INHOUSE NEGATIVE (Negative)
== END 2023-12-19 08:22 | disposition home or self-care (01) ==
LOC: HO.LAB 08:21
PROVIDERS: PCP Internal Medicine; Visit Provider Internal Medicine
DX: Z11.52 Encounter for screening for COVID-19 (principal); Z20.822 Contact with and (suspected) exposure to COVID-19; R09.89 Other specified symptoms and signs involving the circulatory and respiratory systems
CPT/HCPCS: 0241U

== ENCOUNTER 2024-01-08 08:19 | Outpatient (AMB) | payer OTHER, SELFPAY ==
[2024-01-08 08:24] VITALS: BP 114/74; PULSE 83; BMI 41.5
--- NOTE | 2024-01-08 08:24 | A.OFFVIS_ITS ---
Intake Vital Signs 01/08/24 08:24 Height 5 ft 9 in Weight 281 lb 4.957 oz BMI 41.5 BP 114/74 Blood Pressure Location Lt brachial Position Sitting Pulse 83 Pulse Source Monitor Intake Visit Reasons: 1 year follow up Nurse Substance Abuse Required: No Allergies oxycodone [OXYCODONE] Allergy (Intermediate, Verified 01/08/24 08:25) PALPITATIONS, tachycardia, SOB,agitation Medication List - Last Reconciled 01/08/24 by Anu Foster NP-C cetirizine 10 mg PO DAILY PRN 90 days clotrimazole-betamethasone 1-0.05 % 1 appl topical BID 2 weeks diphenhydramine HCl (Allergy (diphenhydramine)) 25 mg PO TID PRN flecainide 50 mg PO BID 90 days fluticasone propionate 50 mcg/actuation 1 spray intranasal DAILY metoprolol succinate ER 25 mg PO DAILY omeprazole 20 mg PO DAILY 90 days HPI 1 year follow up HPI Details Kaia is a 43-year-old female with past medical history hypertension, obesity, sleep apnea, paroxysmal AFib currently suppressed with flecainide who presents for follow-up. Today she reports she has been doing well since her last visit 01/04/2023. She has not had any known recurrent atrial fibrillation. She denies any heart palpitations or abnormally elevated heart rates. She has a smart watch and keeps track of her heart rate and rhythm. No chest discomfort at rest or with activity. No shortness of breath, lightheadedness, presyncope, syncope, falls. No PND, orthopnea or edema. Takes all meds as directed. Requesting refill on flecainide. [facility] Medical History Family history of pancreatic cancer Skin lesions Obesity (BMI 35.0-39.9 without comorbidity) Lumbar pain PAF (paroxysmal atrial fibrillation) Upper back pain Trigger finger Numbness of left hand Allergic rhinitis Obesity Surgical History History of surgical removal of skin lesion (~02/15/23) History of carpal tunnel release History of lumpectomy of right breast History of tubal ligation Family History Father Diabetes Hypertension Parkinson disease Mother Diabetes CVA (cerebral vascular accident) Maternal Grandmother Colon cancer Maternal Aunt Breast cancer Paternal Uncle Pancreas cancer Family/Other Bone cancer Social History Housing: Apartment Alcohol intake: current Alcohol intake frequency: holidays/special occasions only Alcohol type: wine and hard liquor Patient Tobacco Use Status: Former Tobacco user e-Cigarette/Vaping Use: Never Used Second Hand Smoke Exposure: No service: No Current occupational status: employed Current occupation: [employer] - right handed Current occupational exposures/hazards: No Cognitive needs: No Hearing needs: No Vision needs: Yes Review of Systems Const All systems reviewed & are unremarkable except as noted in HPI and below ENT Denies dizziness Card Denies chest pain, Denies chest pain at rest, Denies chest pain with activity, Denies rapid heart rate, Denies pedal edema, Denies edema, Denies leg edema, Denies lightheadedness, Denies palpitations, Denies dyspnea, Denies dyspnea on exertion and Denies orthopnea Resp Denies cough, Denies dyspnea and Denies dyspnea on exertion GI Denies hematochezia and Denies change in stool character Musc Denies abnormal gait, Denies limited range of motion, Denies muscle cramps, Denies muscle weakness, Denies numbness, Denies radiating pain into limb, Denies stiffness and Denies tingling Neuro Denies abnormal gait, Denies dizziness, Denies numbness and Denies tingling Endo Denies palpitations Physical Exam Vital Signs: BMI result Body Mass Index 41.5 Const General: cooperative, healthy appearing, comfortable and no acute distress Orientation/consciousness: patient oriented x3 Neck Neck: Yes normal visual inspection and Yes no JVD Resp Effort & Inspection: normal respiratory effort Auscultation: clear to auscultation bilaterally, no crackles, no rales, no rho nchi and no wheezes Cardio Jugular venous distension: no JVD Rate: regular rate Rhythm: regular rhythm Heart sounds: S1 normal heart sound present, S2 normal heart sound present, no murmurs and no rubs Neuro General: patient oriented x3 Extrem General: Yes normal to inspection, No no pedal edema and No calf tenderness Psych Appearance: grossly normal Mental Status: mental status grossly normal Speech and movement: Normal speech and movement present Office Procedures EKG Details: Today, read by me, SR, rate 83, QTc 399ms [id number], Complete Assessment & Plan Assessment & Plan (1) PAF (paroxysmal atrial fibrillation): Code(s): I48.0 - Paroxysmal atrial fibrillation Plan: History of paroxysmal atrial fibrillation. Suppressed with flecainide 50 mg b.i.d. and on metoprolol 25 mg b.i.d. for heart rate control. No known recurrent atrial fibrillation in the last year. EKG done today showing normal sinus rhythm, no acute ST or T-wave abnormalities, rate 83, QTC 399 milliseconds. Chads Vasc score of 2 with hypertension and female. She has not been on anticoagulation. Informed her of the stroke risk with atrial fibrillation. If she has any documented recurrent atrial fibrillation then anticoagulation will be indicated. She states understanding. Will arrange for office EKG in 6 months. Cardiology follow-up with office EKG in 1 year, sooner if needed. (2) Essential hypertension: Code(s): I10 - Essential (primary) hypertension Plan: Well controlled at this time. Continues on metoprolol. (3) Obesity (BMI 35.0-39.9 without comorbidity): Code(s): E66.9 - Obesity, unspecified Plan: Morbidly obese. Has not been able to lose weight in the last year. Would benefit from bariatric medicine referral, if patient agrees. Will forward this to her PCP. Plan Time spent on chart review, documentation, interview and assessment Medications: Refilled flecainide 50 mg PO BID 90 days 180 tabs 3RF Coding Level of Care Code Est Pt Level 3 (71934) Diagnoses PAF (paroxysmal atrial fibrillation) I48.0 Essential hypertension I10 Obesity (BMI 35.0-39.9 without comorbidity) E66.9 CPT Codes EKG - CPT: 81769-[id number], Complete ([id number]) Time Spent (min) 24
== END 2024-01-08 08:51 | disposition home or self-care (01) ==
PROVIDERS: PCP Internal Medicine; Visit Provider Nurse Practitioner Family
DX: I48.0 Paroxysmal atrial fibrillation (principal); I10 Essential (primary) hypertension; E66.9 Obesity, unspecified
CPT/HCPCS: 93010; 99213

== ENCOUNTER → 2024-01-08 08:19 | Outpatient (BNVA) | payer OTHER, SELFPAY | PROVIDERS: PCP Internal Medicine; Visit Provider Nurse Practitioner Family | DX: I48.0 Paroxysmal atrial fibrillation (principal); I10 Essential (primary) hypertension; E66.9 Obesity, unspecified; Z68.41 Body mass index [BMI] 40.0-44.9, adult | CPT/HCPCS: 93005; 99212 ==

== ENCOUNTER 2024-01-08 09:37 | Outpatient (AMB) | payer OTHER, SELFPAY ==
--- NOTE | 2024-01-08 09:40 | MHC.PC.OV ---
Vital Signs 01/08/24 09:47 Height 5 ft 9 in Weight 278 lb BMI 41.0 BP 122/80 Blood Pressure Location Lt brachial Position Sitting Intake Visit Reasons: left ear, pain in throat Intake Note: Patient here c/o left ear and throat pain, rash under breast, ? yeast infection from antibiotics Traffic Rate Analyst Required: No Accompanied by: Self / Same As Patient Allergies oxycodone [OXYCODONE] Allergy (Intermediate, Verified 01/08/24 10:02) PALPITATIONS, tachycardia, SOB,agitation Medication List - Last Reconciled 01/08/24 by Pamela Sellers MD cetirizine 10 mg PO DAILY PRN 90 days clotrimazole-betamethasone 1-0.05 % 1 appl topical BID 2 weeks diphenhydramine HCl (Allergy (diphenhydramine)) 25 mg PO TID PRN flecainide 50 mg PO BID 90 days fluticasone propionate 50 mcg/actuation 1 spray intranasal DAILY metoprolol succinate ER 25 mg PO DAILY omeprazole 20 mg PO DAILY 90 days Tobacco use date assessed: 01/08/24 Dental Screening Dental Screen Date: 01/08/24 Did you have a dental visit in the last 12 months?: No Did you have a dental problem in the last 6 months where you did not have access to dental care?: No Was dental information given to patient?: Patient has dentist HPI HPI Comments History of Present Illness Details This is a 43-year-old female with paroxysmal atrial fibrillation and morbid obesity that comes today complaining of rash under the breast that she noticed about 2 days ago. She also has left ear discomfort and pain and already has Augmentin. I will give her another antibiotic. Atrial fibrillation stable with flecainide and this is follow by cardiology. She is morbidly obese with a BMI of 41.1 and was advised to diet and exercise to reach BMI goal less than 30. She declines weight loss surgery. [facility] Medical History (Updated 01/08/24 @ 12:09 by Pamela Sellers MD) Family history of pancreatic cancer Skin lesions Obesity (BMI 35.0-39.9 without comorbidity) Lumbar pain PAF (paroxysmal atrial fibrillation) Upper back pain Trigger finger Numbness of left hand Allergic rhinitis Obesity Surgical History History of surgical removal of skin lesion (~02/15/23) History of carpal tunnel release History of lumpectomy of right breast History of tubal ligation Family History Father Diabetes Hypertension Parkinson disease Mother Diabetes CVA (cerebral vascular accident) Maternal Grandmother Colon cancer Maternal Aunt Breast cancer Paternal Uncle Pancreas cancer Family/Other Bone cancer Social History Housing: Apartment Alcohol intake: current Alcohol intake frequency: holidays/special occasions only Alcohol type: wine and hard liquor Patient Tobacco Use Status: Former Tobacco user e-Cigarette/Vaping Use: Never Used Second Hand Smoke Exposure: No service: No Current occupational status: employed Current occupation: [employer] - right handed Current occupational exposures/hazards: No Cognitive needs: No Hearing needs: No Vision needs: Yes Questionnaire PHQ-9 Over the last 2 weeks, how often have you been bothered by any of the following problems? 1. Little interest or pleasure in doing things: not at all 2. Feeling down, depressed, or hopeless: not at all 3. Trouble falling or staying asleep, or sleeping too much: not at all 4. Feeling tired or having little energy: not at all 5. Poor appetite or overeating: not at all 6. Feeling bad about yourself - or that you are a failure or have let yourself or your family down: not at all 7. Trouble concentrating on things, such as reading the newspaper or watching television: not at all 8. Moving or speaking so slowly that other people could have noticed. Or the opposite - being so fidgety or restless that you have been moving around a lot more than usual: not at all 9. Thoughts that you would be better off or of hurting yourself in some way: not at all Total score: 0 Source: Developed by Drs. Adrien Hollingsworth, Tiffanie Alford, Damien Zavala and colleagues, with an educational dede from [employer]. Thrive Questionnaire Date Thrive assessed: 01/08/24 I am a: Patient What is your living situation today?: I have a steady place to live Within the past 12 months, did the food you bought not last and you didn't have the money to get more?: Never true Within the past 12 months, did you worry whether your food would run out before you got money to buy more?: Never true Do you have trouble paying for medicines?: No Do you have trouble getting transportation to medical appointments?: No Do you have trouble paying your heating and electricity bill?: No Do you have trouble taking care of your child, family member or friend?: No Do you have trouble with day-to-day activities such as bathing, preparing meals, shopping, managing finances, etc.?: No Are you currently unemployed and looking for a job?: No Are you interested in more education?: No Please select the resources that you would like help with: None Currently or been in a relationship where the following occur: no concerns reported THRIVE Score: 0 AUDIT C Alcohol Use Questionnaire (AUDIT-C) 1. How often do you have a drink containing alcohol?: Monthly or less 2. How many drinks containing alcohol do you have on a typical day when you are drinking?: 1 or 2 3. How often do you have six or more drinks on one occasion?: Never Total Score: 1 FRITZ-7 AMB Questionnaire FRITZ-7 Date FRITZ - 7 assessed: 01/08/24 Feeling nervous, anxious, or on edge: 0 = Not at all Not being able to stop or control worryin = Not at all Worrying too much about different things: 0 = Not at all Trouble relaxin = Not at all Being so restless that it is hard to sit still: 0 = Not at all Becoming easily annoyed or irritable: 0 = Not at all Feeling afraid as if something awful might happen: 0 = Not at all Total FRITZ-7 score (0-4 normal; 5-9 mild; 10-14 moderate; 15-21 severe): 0 Source: Developed by Drs. Adrien Hollingsworth, Tiffanie Alford, Damien Zavala and colleagues, with an educational dede from [employer]. Review of Systems Const All systems reviewed & are unremarkable except as noted in HPI and below Eyes Reports no additional complaints, Denies change in vision and Denies other visual disturbances Card Denies chest pain at rest, Denies chest pain with activity, Denies edema, Denies irregular heart rhythm, Denies claudication, Denies dyspnea, Denies dyspnea on exertion, Denies orthopnea, Denies paroxysmal nocturnal dyspnea and Denies slow heart rate Resp Denies cough, Denies dyspnea and Denies dyspnea on exertion GI Denies abdominal pain, Denies change in bowel habits, Denies excessive flatus, Denies nausea and Denies vomiting Denies urinary incontinence, Denies urinary hesitancy and Denies urinary urgency Physical exam (Primary Care) Vital Signs: Last Vital Signs BP 122/80 01/08/24 09:47 BMI result Body Mass Index 41.0 Tobacco/Smoking Status: Tobacco use Status Tobacco use date assessed 01/08/24 01/08/24 09:52 Patient Tobacco Use Status Former Tobacco user 01/08/24 09:42 Tobacco use type 01/04/23 15:30 e-Cigarette/Vaping Use Never Used 01/08/24 09:42 PHQ-9: PHQ-9 Score PHQ-9: Total score 0 01/08/24 10:13 Thrive Assessment: Date of Thrive Assessment Date Thrive assessed 01/08/24 01/08/24 09:52 Currently or been in a relationship where the following occur: no concerns reported Resp Effort & Inspection: normal respiratory effort Auscultation: clear to auscultation bilaterally Cardio Jugular venous distension: no JVD Rate: regular rate Rhythm: regular rhythm Heart sounds: S1 normal heart sound present and S2 normal heart sound present Extrem General: Yes full ROM Assessment and Plan Assessment & Plan (1) PAF (paroxysmal atrial fibrillation): Code(s): I48.0 - Paroxysmal atrial fibrillation Plan: Continue flecainide and metoprolol. (2) Morbid obesity with BMI of 40.0-44.9, adult: Code(s): E66.01 - Morbid (severe) obesity due to excess calories; Z68.41 - Body mass index [BMI] 40.0-44.9, adult Plan: Declines weight loss surgery. Start diet and exercise. BMI goal is less than 30. (3) Candidal intertrigo: Code(s): B37.2 - Candidiasis of skin and nail Plan: Start nystatin. (4) Ear discomfort: Code(s): H92.09 - Otalgia, unspecified ear Plan: Referred to ear nose throat. Start doxycycline. Orders: Referrals Ear/Nose/Throat Referral H92.09 - Otalgia, unspecified ear Medications: New nystatin 1 appl topical BID 15 grams 0RF 2 weeks B37.2 - Candidiasis of skin and nail doxycycline hyclate 100 mg PO BID 10 tabs 0RF 5 days fluconazole may repeat second dose 72 hrs after first dose if symptoms persist 150 mg PO Q3D 2 tabs 0RF 2 doses Refilled fluticasone propionate 50 mcg/actuation 1 spray intranasal DAILY 32 mL 1RF Coding Level of Care Code Est Pt Level 4 (74036) Diagnoses PAF (paroxysmal atrial fibrillation) I48.0 Morbid obesity with BMI of 40.0-44.9, adult E66.01; Z68.41 Candidal intertrigo B37.2 Ear discomfort H92.09 Time Spent (min) 22
[2024-01-08 09:47] VITALS: BP 122/80; BMI 41.0
== END 2024-01-08 10:10 | disposition home or self-care (01) ==
PROVIDERS: PCP Internal Medicine; Visit Provider Internal Medicine
DX: I48.0 Paroxysmal atrial fibrillation (principal); E66.01 Morbid (severe) obesity due to excess calories; Z68.41 Body mass index [BMI] 40.0-44.9, adult; B37.2 Candidiasis of skin and nail; H92.09 Otalgia, unspecified ear
CPT/HCPCS: 99214

== ENCOUNTER 2024-03-04 09:39 | Outpatient (AMB) | payer OTHER, SELFPAY ==
--- NOTE | 2024-03-04 09:47 | A.OFFPC_ITS ---
Vital Signs 03/04/24 09:50 Height 5 ft 9 in Weight 276 lb 2 oz BMI 40.8 BP 116/72 Blood Pressure Location Lt brachial Position Sitting Pulse 81 Pulse Source Pulse Oximeter Pulse Oximetry (%) 96 Oxygen Delivery Method Room Air Intake Visit Reasons: afib Industrial/Organizational Psychologist Required: No Accompanied by: Self / Same As Patient Allergies oxycodone [OXYCODONE] Allergy (Intermediate, Verified 03/04/24 10:01) PALPITATIONS, tachycardia, SOB,agitation Medication List - Last Reconciled 03/04/24 by Pamela Sellers MD cetirizine 10 mg PO DAILY PRN 90 days clotrimazole-betamethasone 1-0.05 % 1 appl topical BID 2 weeks diphenhydramine HCl (Allergy (diphenhydramine)) 25 mg PO TID PRN flecainide 50 mg PO BID 90 days fluconazole 150 mg PO Q3D 2 doses fluticasone propionate 50 mcg/actuation 1 spray intranasal DAILY metoprolol succinate ER 25 mg PO DAILY nystatin 1 appl topical BID 2 weeks omeprazole 20 mg PO DAILY 90 days Tobacco use date assessed: 01/08/24 Dental Screening Dental Screen Date: 01/08/24 HPI HPI Comments History of Present Illness Details This is a 44-year-old female with paroxysmal atrial fibrillation, chronic GERD, generalized anxiety disorder, allergic rhinitis and morbid obesity that comes for follow-up on her conditions. On flecainide and metoprolol for her atrial fibrillation and is follow by cardiology. GERD has been stable with PPIs. Complains of more anxiety and I will start her on sertraline. On antihistamines as needed for her allergic rhinitis. She is morbidly obese with a BMI of 40.8 and has tried diet and exercise with no improvement. I will start her on Wegovy. No chest pain or shortness on breath. COUNT INCLUDES THE [facility] Medical History (Updated 03/04/24 @ 12:15 by Pamela Sellers MD) Family history of pancreatic cancer Skin lesions Obesity (BMI 35.0-39.9 without comorbidity) Lumbar pain PAF (paroxysmal atrial fibrillation) Upper back pain Trigger finger Numbness of left hand Allergic rhinitis Obesity Surgical History History of surgical removal of skin lesion (~02/15/23) History of carpal tunnel release History of lumpectomy of right breast History of tubal ligation Family History Father Diabetes Hypertension Parkinson disease Mother Diabetes CVA (cerebral vascular accident) Maternal Grandmother Colon cancer Maternal Aunt Breast cancer Paternal Uncle Pancreas cancer Family/Other Bone cancer Social History Housing: Apartment Alcohol intake: current Alcohol intake frequency: holidays/special occasions only Alcohol type: wine and hard liquor Patient Tobacco Use Status: Former Tobacco user e-Cigarette/Vaping Use: Never Used Second Hand Smoke Exposure: No service: No Current occupational status: employed Current occupation: [employer] - right handed Current occupational exposures/hazards: No Cognitive needs: No Hearing needs: No Vision needs: Yes Questionnaire Thrive Questionnaire Date Thrive assessed: 01/08/24 FRTIZ-7 AMB Questionnaire FRITZ-7 Date FRITZ - 7 assessed: 01/08/24 Source: Developed by Drs. Adrien Hollingsworth, Tiffanie Alford, Damien Zavala and colleagues, with an educational dede from [employer]. Review of Systems Const All systems reviewed & are unremarkable except as noted in HPI and below Card Denies chest pain at rest, Denies chest pain with activity, Denies edema, Denies irregular heart rhythm, Denies claudication, Denies dyspnea, Denies dyspnea on exertion, Denies orthopnea, Denies paroxysmal nocturnal dyspnea and Denies slow heart rate Resp Denies cough, Denies dyspnea and Denies dyspnea on exertion Musc Denies atrophy, Denies deformity and Denies limited range of motion Physical exam (Primary Care) Vital Signs: Last Vital Signs Pulse 81 03/04/24 09:50 BP 116/72 03/04/24 09:50 Pulse Ox 96 03/04/24 09:50 Oxygen Delivery Method Room Air 03/04/24 09:50 BMI result Body Mass Index 40.8 Tobacco/Smoking Status: Tobacco use Status Tobacco use date assessed 01/08/24 03/04/24 09:47 Patient Tobacco Use Status Former Tobacco user 03/04/24 09:47 Tobacco use type 01/04/23 15:30 e-Cigarette/Vaping Use Never Used 03/04/24 09:47 Thrive Assessment: Date of Thrive Assessment Date Thrive assessed 01/08/24 03/04/24 09:47 Resp Effort & Inspection: normal respiratory effort Auscultation: clear to auscultation bilaterally Cardio Jugular venous distension: no JVD Rate: regular rate Rhythm: regular rhythm Heart sounds: S1 normal heart sound present and S2 normal heart sound present Extrem General: Yes full ROM Assessment and Plan Assessment & Plan (1) PAF (paroxysmal atrial fibrillation): Code(s): I48.0 - Paroxysmal atrial fibrillation Plan: Continue flecainide and metoprolol. The goal is heart rate control. Follow-up with Cardiology. (2) Morbid obesity with BMI of 40.0-44.9, adult: Code(s): E66.01 - Morbid (severe) obesity due to excess calories; Z68.41 - Body mass index [BMI] 40.0-44.9, adult Plan: Start Wegovy. Side effects were thoroughly explained. (3) Chronic GERD: Code(s): K21.9 - Gastro-esophageal reflux disease without esophagitis Plan: Continue PPIs. (4) FRITZ (generalized anxiety disorder): Code(s): F41.1 - Generalized anxiety disorder Plan: Start sertraline. (5) Allergic rhinitis: Code(s): J30.9 - Allergic rhinitis, unspecified Qualifiers: Allergic rhinitis trigger: pollen Allergic rhinitis seasonality: seasonal Qualified Code(s): J30.1 - Allergic rhinitis due to pollen Plan: Continue antihistamines as needed. Orders: Referrals Ophthalmology Referral H53.8 - Other visual disturbances Medications: New semaglutide (weight loss) (Wegovy) administer weeks 1 through 4 of therapy 0.25 mg (0.5 mL) subcut QWEEK 2 mL 0RF 4 weeks E66.01 - Morbid (severe) obesity due to excess calories, Z68.41 - Body mass index [BMI] 40.0-44.9, adult sertraline 25 mg PO DAILY 90 tabs 0RF 90 days F41.1 - Generalized anxiety disorder Refilled omeprazole 20 mg PO DAILY 90 caps 0RF 90 days Coding Level of Care Code Est Pt Level 4 (54500) Complex EM visit Add On G2211 Diagnoses PAF (paroxysmal atrial fibrillation) I48.0 Morbid obesity with BMI of 40.0-44.9, adult E66.01; Z68.41 Chronic GERD K21.9 FRITZ (generalized anxiety disorder) F41.1 Seasonal allergic rhinitis due to pollen J30.1 Allergic rhinitis trigger: pollen Allergic rhinitis seasonality: seasonal Time Spent (min) 23
[2024-03-04 09:50] VITALS: BP 116/72; PULSE 81; O2SAT 96; BMI 40.8
== END 2024-03-04 10:10 | disposition home or self-care (01) ==
PROVIDERS: PCP Internal Medicine; Visit Provider Internal Medicine
DX: I48.0 Paroxysmal atrial fibrillation (principal); E66.01 Morbid (severe) obesity due to excess calories; Z68.41 Body mass index [BMI] 40.0-44.9, adult; K21.9 Gastro-esophageal reflux disease without esophagitis; F41.1 Generalized anxiety disorder; J30.1 Allergic rhinitis due to pollen
CPT/HCPCS: 99214; G2211

== ENCOUNTER 2024-06-16 23:53 | Emergency (ER) | payer OTHER, SELFPAY ==
[2024-06-17 00:06] VITALS: BP 106/71; PULSE 115; RESP 18; TEMP 36.2; O2SAT 98; BMI 37.9
[2024-06-17 00:39] LABS: MANUAL DIFF FLAG NO
[2024-06-17 00:40] LABS: Basophils Percent Auto 0.2 % (0-2); Eosinophils Absolute Auto 0.2 X10*3/uL (0.0-0.4); Eosinophils Percent Auto 1.6 % (0-4); Hemoglobin 14.2 g/dl (12.0-16.0); Imm Gran Abs Auto 0.03 X10*3/uL (0.00-0.03); Imm Gran Pct Auto 0.3 % (0.0-0.4); Lymphocytes Absolute Auto 2.5 X10*3/uL (1.2-4.9); Lymphocytes Percent Auto 23.7 % (20-40); Mean Corpuscular HGB Conc 32.3 g/dl (31.0-35.0); Mean Corpuscular Hemoglobin 28.2 pg (27.0-33.0); Mean Corpuscular Volume 87.3 fL (80.0-98.0); Mean Platelet Volume 9.6 fL (9.4-12.3); Monocytes Absolute Auto 1.1 X10*3/uL (0.1-1.2); Monocytes Percent Auto 10.3 % (2-11); Neutrophils Absolute Auto 6.7 x10*3/uL (2.0-8.3); Neutrophils Percent Auto 63.9 % (45-73); Platelet Count 320 X10*3/uL (160-400); Red Blood Count 5.04 X10*6/uL (4.20-5.50); Red Cell Distribution Width 14.6 % (11.0-16.0); White Blood Count 10.4 X10*3/uL (4.8-10.8)
[2024-06-17 00:52] LABS: Anion Gap 14 (12-20); Blood Urea Nitrogen 11 mg/dL (9-16); Calcium 9.5 mg/dL (8.4-10.2); Carbon Dioxide 19 mmol/L (22-29); Chloride 110 mmol/L (96-108); Creatinine Clr Calc Pharmacy 105.1; Estimated Glomerular Filt Rate > 60; Glucose Random 106 mg/dL (60-115); Potassium 3.5 mmol/L (3.3-5.1); Sodium 139 mmol/L (135-145)
--- NOTE | 2024-06-17 00:55 | ED.NAVMDI ---
HPI - Nausea/Vomiting/Diarrhea General Chief complaint: Nausea/Vomiting/Diarrhea Stated complaint: N/V/D Time Seen by Provider: 06/17/24 00:55 Source: patient Mode of arrival: ambulatory Limitations: language barrier History of Present Illness ED Provider: Dr. Bishop HPI Narrative: For the past 24 hours patient has had watery diarrhea and vomiting. She denies food poisoning, no one else in her house is currently sick, no fever, no bloody diarrhea. Patient comes in because both the diarrhea and vomiting have not stopped. MD elicited complaint: nausea, vomiting and diarrhea Related Data Previous Rx's ?Medication ?Instructions ?Recorded diphenhydramine HCl 25 mg tablet 25 mg PO TID PRN itching #20 tabs 01/26/23 (Allergy (diphenhydramine)) clotrimazole-betamethasone 1 1 appl topical BID 2 weeks #45 02/26/23 %-0.05 % topical cream grams metoprolol succinate 25 mg 25 mg PO DAILY #90 tabs 08/13/23 tablet,extended release 24 hr flecainide 50 mg tablet 50 mg PO BID 90 days #180 tabs 01/08/24 fluconazole 150 mg tablet 150 mg PO Q3D 2 doses #2 tabs 01/08/24 fluticasone propionate 50 1 spray intranasal DAILY #32 mL 01/08/24 mcg/actuation nasal spray,suspension nystatin 100,000 unit/gram topical 1 appl topical BID 2 weeks #15 01/08/24 cream grams omeprazole 20 mg capsule,delayed 20 mg PO DAILY 90 days #90 caps 03/04/24 release semaglutide (weight loss) 1 mg/0.5 1 mg (0.5 mL) subcut Q7D 4 weeks 05/24/24 mL subcutaneous pen injector #2 mL ([employer]) sertraline 25 mg tablet 25 mg PO DAILY 90 days #90 tabs 05/31/24 cetirizine 10 mg tablet 10 mg PO DAILY PRN allergy 06/14/24 symptoms 90 days #90 tabs semaglutide (weight loss) 1.7 1.7 mg (0.75 mL) subcut QWEEK 4 06/15/24 mg/0.75 mL subcutaneous pen weeks #3 mL injector ([employer]) ondansetron 4 mg disintegrating 4 mg PO Q8H 4 days #12 tabs 06/17/24 tablet Allergies Allergy/AdvReac Type Severity Reaction Status Date / Time oxycodone [OXYCODONE] Allergy Intermediate PALPITATIONS, Verified 06/17/24 00:09 tachycardia, SOB,agitation Review of Systems Review of Systems: Yes all other systems are reviewed and are negative Neurologic: Denies Sensory deficit (Neuro) [facility] Past Medical History Medical History Family history of pancreatic cancer Skin lesions Obesity (BMI 35.0-39.9 without comorbidity) Lumbar pain PAF (paroxysmal atrial fibrillation) Upper back pain Trigger finger Numbness of left hand Allergic rhinitis Obesity Surgical History History of surgical removal of skin lesion (~02/15/23) History of carpal tunnel release History of lumpectomy of right breast History of tubal ligation Family History Family History Father Diabetes Hypertension Parkinson disease Mother Diabetes CVA (cerebral vascular accident) Maternal Grandmother Colon cancer Maternal Aunt Breast cancer Paternal Uncle Pancreas cancer Family/Other Bone cancer Social History Social History Housing: Apartment Alcohol intake: never Patient Tobacco Use Status: Former Tobacco user Smoked in Last 30 Days: No e-Cigarette/Vaping Use: Never Used Second Hand Smoke Exposure: No Use of substances other than those prescribed or required for medical reasons: No Advance Directives: No Advance Directives Information Provided: Yes Patient : No service: No Current occupational status: employed Current occupation: [employer] - right handed Current occupational exposures/hazards: No Cognitive needs: No Hearing needs: No Vision needs: Yes Physical Exam Vital Signs: Vital Signs: Last Vital Signs Temp 97.2 F 06/17/24 00:06 Pulse 115 H 06/17/24 00:06 Resp 18 06/17/24 00:06 BP 106/71 06/17/24 00:06 Pulse Ox 98 06/17/24 00:06 O2 Del Method Room Air 06/17/24 00:06 BMI result Body Mass Index 37.9 Const: General: healthy appearing Nutritional Appearance: average body habitus Orientation/consciousness: oriented to person and patient oriented x3 Limitations: no limitations HEENT: Head: Yes normal to inspection Ears: external ears normal General nose exam: Normal external nose present Mouth: Normal oral and palatal mucosa present and oropharynx normal Throat: Yes posterior oropharynx normal Eyes: General: appearance normal, both eyes and all related structures Neck: Other: supple Neck: Yes normal visual inspection Chest: Chest palpation & inspection: normal inspection of the chest Resp: Auscultation: clear to auscultation bilaterally Cardio: Jugular venous distension: no JVD Rate: regular rate Rhythm: regular rhythm Heart sounds: S1 normal heart sound present and S2 normal heart sound present GI: Inspection: Yes normal to inspection Palpation (GI): Soft to palpation, nontender and No hepatosplenomegaly present Auscultation: normal bowel sounds : General: Yes no CVA tenderness Back/Spine/Pelvis: Back: no CVA tenderness Skin: General skin exam: no rashes or lesions noted Neuro: General: oriented to person and patient oriented x3 Cranial nerves: Yes CN's II-XII intact bilaterally Motor exam (neuro): 5/5 motor strength present throughout Sensory Exam: No Sensory deficit (Neuro) Extrem: General: Yes normal to inspection Psych: Appearance: grossly normal Course Reevaluation(s) Reevaluation #1: no vomiting in the ED, diarrhea is subsiding will treat with zofran and hydration Time: 03:09 Medications Administered Discontinued Medications Generic Name Dose Route Start Last Admin Trade Name Freq PRN Reason Stop Dose Admin Famotidine 20 mg 06/17/24 01:08 06/17/24 01:17 Famotidine 20 Mg Tablet PO 06/17/24 01:09 20 mg ONCE ONE Administration Ondansetron HCl 4 mg 06/17/24 01:08 06/17/24 01:17 Ondansetron Odt 4 Mg Tab.Rapdis TRANSLINGU 06/17/24 01:09 4 mg ONCE ONE Administration Medical Decision Making Differential Diagnosis Differential Diagnoses: The differential diagnosis associated with the presentation includes (viral gastroenteritis, cdiff, food poisoning, ) Admission/Observation Consideration of admission/observation: Escalation of care including admission/observation considered (upon arrival patient considered for admission) Lab Data 06/17/24 00:33 06/17/24 00:33 Labs: Lab Results 06/17/24 06/17/24 06/17/24 Range/Units 00:33 01:36 01:38 WBC 10.4 (4.8-10.8) X10*3/uL RBC 5.04 (4.20-5.50) X10*6/uL Hgb 14.2 (12.0-16.0) g/dl Hct 44.0 (37.0-47.0) % MCV 87.3 (80.0-98.0) fL MCH 28.2 (27.0-33.0) pg MCHC 32.3 (31.0-35.0) g/dl RDW 14.6 (11.0-16.0) % Plt Count 320 (160-400) X10*3/uL MPV 9.6 (9.4-12.3) fL Immature Gran % (Auto) 0.3 (0.0-0.4) % Neut % (Auto) 63.9 (45-73) % Lymph % (Auto) 23.7 (20-40) % [place] % (Auto) 10.3 (2-11) % Eos % (Auto) 1.6 (0-4) % Baso % (Auto) 0.2 (0-2) % Lymph # (Auto) 2.5 (1.2-4.9) X10*3/uL [place] # (Auto) 1.1 (0.1-1.2) X10*3/uL Eos # (Auto) 0.2 (0.0-0.4) X10*3/uL Baso # (Auto) 0.0 (0.0-0.2) X10*3/uL Abs Immat Gran (auto) 0.03 (0.00-0.03) X10*3/uL Absolute Neuts (auto) 6.7 (2.0-8.3) x10*3/uL Absolute Nucleated RBC 0.000 (0.0-0.012) X10*3/uL Nucleated RBC % (auto) 0.0 (0.0-0.2) /100WBC Sodium 139 (135-145) mmol/L Potassium 3.5 (3.3-5.1) mmol/L Chloride 110 H (96-108) mmol/L Carbon Dioxide 19 L (22-29) mmol/L Anion Gap 14 (12-20) BUN 11 (9-16) mg/dL Creatinine 0.93 (0.5-1.4) mg/dL Estim Creat Clear Calc 105.1 Estimated GFR > 60 POC Glucose (60-115) mg/dL Random Glucose 106 (60-115) mg/dL Calcium 9.5 D (8.4-10.2) mg/dL Total Bilirubin 0.5 (0.0-1.0) mg/dL Direct Bilirubin 0.2 (0.0-0.5) mg/dL AST 18 (5-31) U/L ALT 28 (0-31) U/L Alkaline Phosphatase 78 (39-117) U/L Total Protein 8.3 H (6.5-8.0) g/dL Albumin 4.4 (3.5-5.0) g/dL Lipase 20 (8-78) U/L Urine Color Yellow Urine Appearance Cloudy Urine pH 6.0 (5.0-9.0) Ur Specific [place] >= 1.030 H (1.005-1.025) Urine Protein 100 (2+) H (Neg-Trace) mg/dL Urine Glucose (UA) 100 H (Negative) mg/dL Urine Ketones Trace (Negative) mg/dL Urine Blood Trace (Negative) Urine Nitrite Negative (Negative) Ur Leukocyte Esterase Small (1+) H (Negative) Urine RBC 0-2 (0-2) /HPF Urine WBC 6-10 (0-5) /HPF Urine WBC Clumps Present Ur Squamous Epith Cells 6-10 (0-2) /HPF Other Crystals Present Urine Bacteria 3+ (None Seen) Hyaline Casts 0-2 (0-2) /LPF Urine Test NEGATIVE (NEGATIVE) COVID-19 (JENARO) Negative (Negative) COVID-19 Clin Com See Note 06/17/24 Range/Units 01:40 WBC (4.8-10.8) X10*3/uL RBC (4.20-5.50) X10*6/uL Hgb (12.0-16.0) g/dl Hct (37.0-47.0) % MCV (80.0-98.0) fL MCH (27.0-33.0) pg MCHC (31.0-35.0) g/dl RDW (11.0-16.0) % Plt Count (160-400) X10*3/uL MPV (9.4-12.3) fL Immature Gran % (Auto) (0.0-0.4) % Neut % (Auto) (45-73) % Lymph % (Auto) (20-40) % [place] % (Auto) (2-11) % Eos % (Auto) (0-4) % Baso % (Auto) (0-2) % Lymph # (Auto) (1.2-4.9) X10*3/uL [place] # (Auto) (0.1-1.2) X10*3/uL Eos # (Auto) (0.0-0.4) X10*3/uL Baso # (Auto) (0.0-0.2) X10*3/uL Abs Immat Gran (auto) (0.00-0.03) X10*3/uL Absolute Neuts (auto) (2.0-8.3) x10*3/uL Absolute Nucleated RBC (0.0-0.012) X10*3/uL Nucleated RBC % (auto) (0.0-0.2) /100WBC Sodium (135-145) mmol/L Potassium (3.3-5.1) mmol/L Chloride (96-108) mmol/L Carbon Dioxide (22-29) mmol/L Anion Gap (12-20) BUN (9-16) mg/dL Creatinine (0.5-1.4) mg/dL Estim Creat Clear Calc Estimated GFR POC Glucose 99 (60-115) mg/dL Random Glucose (60-115) mg/dL Calcium (8.4-10.2) mg/dL Total Bilirubin (0.0-1.0) mg/dL Direct Bilirubin (0.0-0.5) mg/dL AST (5-31) U/L ALT (0-31) U/L Alkaline Phosphatase (39-117) U/L Total Protein (6.5-8.0) g/dL Albumin (3.5-5.0) g/dL Lipase (8-78) U/L Urine Color Urine Appearance Urine pH (5.0-9.0) Ur Specific [place] (1.005-1.025) Urine Protein (Neg-Trace) mg/dL Urine Glucose (UA) (Negative) mg/dL Urine Ketones (Negative) mg/dL Urine Blood (Negative) Urine Nitrite (Negative) Ur Leukocyte Esterase (Negative) Urine RBC (0-2) /HPF Urine WBC (0-5) /HPF Urine WBC Clumps Ur Squamous Epith Cells (0-2) /HPF Other Crystals Urine Bacteria (None Seen) Hyaline Casts (0-2) /LPF Urine Test (NEGATIVE) COVID-19 ([facility]ENARO) (Negative) COVID-19 Clin Com Tests considered The following testing was considered but not selected: CT of abdomen was considered but patient with soft abdomen, afebrile, normal WBC Prescription Management I considered prescription management with: Antibiotic (no evidence of bacterial infection) Discharge Plan Discharge Clinical Impression: Gastroenteritis and colitis, viral Patient Disposition: Home, Self-Care Instructions: Acute Nausea and Vomiting (ED), Enteritis (ED) Additional Instructions: clear liquid diet for 72 hours until diarrhea stops Prescriptions: New ondansetron 4 mg tablet,disintegrating 4 mg PO Q8H 4 Days Qty: 12 0RF No Action clotrimazole-betamethasone 1-0.05 % cream 1 appl topical BID 14 Days Qty: 45 1RF metoprolol succinate 25 mg tablet extended release 24 hr 25 mg PO DAILY Qty: 90 3RF Wegovy 1 mg/0.5 mL pen injector 1 mg subcut Q7D 28 Days Qty: 2 0RF sertraline 25 mg tablet 25 mg PO DAILY 90 Days Qty: 90 0RF cetirizine 10 mg tablet 10 mg PO DAILY PRN (Reason: allergy symptoms) 90 Days Qty: 90 3RF Wegovy 1.7 mg/0.75 mL pen injector 1.7 mg subcut QWEEK 28 Days Qty: 3 0RF Rx Instructions: administer weeks 13 through 16 of therapy diphenhydramine HCl [Allergy (diphenhydramine)] 25 mg tablet 25 mg PO TID PRN (Reason: itching) Qty: 20 0RF omeprazole 20 mg capsule,delayed release(DR/EC) 20 mg PO DAILY 90 Days Qty: 90 0RF fluticasone propionate 50 mcg/actuation spray,suspension 1 spray intranasal DAILY Qty: 32 1RF fluconazole 150 mg tablet 150 mg PO Q3D Qty: 2 0RF Rx Instructions: may repeat second dose 72 hrs after first dose if symptoms persist nystatin 100,000 unit/gram cream 1 appl topical BID 14 Days Qty: 15 0RF flecainide 50 mg tablet 50 mg PO BID 90 Days Qty: 180 3RF Referrals: Pamela Coughlin MD [Primary Care Provider] - 1 week Print Language: Ukrainian
--- NOTE | 2024-06-17 01:08 | MHC.EDTECH ---
Attempted to get as urine sample,patient was unable to give at this time,RN aware
[2024-06-17] MEDS: Ondansetron ODT 4 MG TAB.RAPDIS TRANSLINGU (01:17)
[2024-06-17] MEDS: Famotidine 20 MG TABLET PO (01:17)
--- NOTE | 2024-06-17 01:42 | MHC.EDTECH ---
POC taken and is 99,RN socorro made aware,covid/urine obtained and sent to lab.
[2024-06-17 01:43] LABS: Appearance Urine Cloudy; Color Urine Yellow; Glucose Urine UA 100 mg/dL (Negative); Leukocyte Esterase Urine Small (1+) (Negative); Nitrite Urine Negative (Negative); Specific Gravity - Urine >= 1.030 (1.005-1.025); UMIC TRIGGER UACC YES; Urine Blood Trace (Negative); Urine Ketones Trace mg/dL (Negative); Urine Protein 100 (2+) mg/dL (Neg-Trace)
[2024-06-17 01:44] LABS: UPreg QC Valid YES; Urine Pregnancy NEGATIVE (NEGATIVE)
[2024-06-17 01:45] LABS: Glucose, Whole Blood 99 mg/dL (60-115)
[2024-06-17 01:48] LABS: Alanine Aminotransferase 28 U/L (0-31); Albumin Level 4.4 g/dL (3.5-5.0); Alkaline Phosphatase 78 U/L (39-117); Aspartate Amino Transferase 18 U/L (5-31); Bilirubin Direct 0.2 mg/dL (0.0-0.5); Bilirubin Total 0.5 mg/dL (0.0-1.0); Lipase 20 U/L (8-78); Total Protein 8.3 g/dL (6.5-8.0)
[2024-06-17 01:53] LABS: Bacteria Urine 3+ (None Seen); Hyaline Casts Urine 0-2 /LPF (0-2); Other Crystals Urine Present; RBC Urine 0-2 /HPF (0-2); UACC Culture Trigger YES; WBC Clumps Urine Present
[2024-06-17 02:15] LABS: COVID-19 Test Negative (Negative); IDNOW Serial# 08D9AD1C
[2024-06-17 03:30] VITALS: BP 106/71; PULSE 115; RESP 18; TEMP 36.2; O2SAT 98
== END 2024-06-17 03:31 | disposition home or self-care (01) ==
PROVIDERS: Emergency Provider Emergency Medicine; PCP Internal Medicine
DX: A08.4 Viral intestinal infection, unspecified (principal); R11.2 Nausea with vomiting, unspecified; Z11.52 Encounter for screening for COVID-19; Z79.899 Other long term (current) drug therapy
CPT/HCPCS: 36415; 80048; 80076; 81001; 81025; 82947; 83690; 85025; 87086; 87635; 99283; 99284

== ENCOUNTER → 2024-07-15 14:49 | Outpatient (BNVA) | payer OTHER, SELFPAY | PROVIDERS: PCP Internal Medicine; Visit Provider Nurse Practitioner Family ==

== ENCOUNTER 2024-09-26 15:25 | Outpatient (REF) | payer OTHER, SELFPAY | END 2024-09-26 15:26 | disposition home or self-care (01) | LOC: HO.MAMMO 15:25 | PROVIDERS: PCP Internal Medicine; Visit Provider Internal Medicine | DX: Z12.31 Encounter for screening mammogram for malignant neoplasm of breast (principal) | CPT/HCPCS: 77063; 77067 ==

== ENCOUNTER → 2024-09-26 15:45 | Outpatient (BNV) | payer OTHER, SELFPAY | PROVIDERS: PCP Internal Medicine; Visit Provider Internal Medicine | DX: Z12.31 Encounter for screening mammogram for malignant neoplasm of breast (principal) | CPT/HCPCS: 77063; 77067 ==

== ENCOUNTER 2024-10-03 15:05 | Outpatient (AMB) | payer OTHER, SELFPAY ==
[2024-10-03 15:31] VITALS: BP 106/66; PULSE 76; O2SAT 97; BMI 36.5
--- NOTE | 2024-10-03 15:31 | A.OFFPC_ITS ---
Vital Signs 10/03/24 15:31 Height 5 ft 9 in Weight 247 lb BMI 36.5 BP 106/66 Blood Pressure Location Lt brachial Position Sitting Pulse 76 Pulse Source Pulse Oximeter Pulse Oximetry (%) 97 Oxygen Delivery Method Room Air Intake Visit Reasons: Annual exam Intake Note: The patient is here today for a physical. She reports left ear pain caused by earplugs and lower back pain while sleeping. 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 Required: No Accompanied by: Self / Same As Patient Allergies oxycodone [OXYCODONE] Allergy (Intermediate, Verified 10/03/24 15:58) PALPITATIONS, tachycardia, SOB,agitation Medication List - Last Reconciled 10/03/24 by Pamela Sellers MD cetirizine 10 mg PO DAILY PRN 90 days clotrimazole-betamethasone 1-0.05 % 1 appl topical BID 2 weeks diphenhydramine HCl (Allergy (diphenhydramine)) 25 mg PO TID PRN flecainide 50 mg PO BID 90 days fluconazole 150 mg PO Q3D 2 doses fluticasone propionate 50 mcg/actuation 1 spray intranasal DAILY metoprolol succinate ER 25 mg PO DAILY 90 days nystatin 1 appl topical BID 2 weeks omeprazole 20 mg PO DAILY 90 days ondansetron 4 mg PO Q8H 4 days semaglutide (weight loss) (Wegovy) 1 mg (0.5 mL) subcut Q7D 4 weeks semaglutide (weight loss) (Wegovy) 1.7 mg (0.75 mL) subcut QWEEK 4 weeks semaglutide (weight loss) (Wegovy) 2.4 mg (0.75 mL) subcut QWEEK 4 weeks sertraline 25 mg PO DAILY 90 days Tobacco use date assessed: 01/08/24 Dental Screening Dental Screen Date: 01/08/24 HPI HPI Comments History of Present Illness Details The patient is a 44-year-old female presenting for her annual wellness examination. She has a medical history significant for paroxysmal atrial fibrillation, for which she follows up with cardiology annually and is currently managed on metoprolol. In terms of her weight, the patient has been on Wegovy for weight management since March, which has resulted in weight loss from 281 pounds in August of last year to 247 pounds currently, with her Body Mass Index (BMI) decreasing to 36.5, indicating Class 2 obesity. Despite challenges in accessing the medication, the patient reports that it is effective. The patient noted hip pain affecting her sleep, predominantly when lying on either side, with pain alternating between hips. The pain has been persistent, and she reported bursitis as a possible condition. Additionally, the patient has previous diagnoses of right carpal tunnel syndrome for which she underwent surgery, and she has a right breast lumpectomy in her history. The patient reported a previous indication of protein in her urine. The patient has gastroesophageal reflux disease, managed with omeprazole. The patient is a non-smoker, and she abstains from alcohol use. Family medical history includes a father with diabetes mellitus, hypertension, and Parkinson's disease, and a mother with diabetes mellitus. - Mammogram performed last week, awaitin g results - Tetanus vaccine administered in 2015, next due in 2025 - Last Pap smear over five years ago, wi need for updated screening - Weight management discussed, with posi tive outcomes on Wegovy - Discussion and monitoring of proteinur ia as a possible health concern [facility] Medical History (Updated 10/03/24 @ 16:12 by Pamela Sellers MD) Morbid obesity with BMI of 40.0-44.9, adult Family history of pancreatic cancer Skin lesions Obesity (BMI 35.0-39.9 without comorbidity) Lumbar pain PAF (paroxysmal atrial fibrillation) Upper back pain Trigger finger Numbness of left hand Allergic rhinitis Obesity Surgical History History of surgical removal of skin lesion (~02/15/23) History of carpal tunnel release History of lumpectomy of right breast History of tubal ligation Family History Father Diabetes Hypertension Parkinson disease Mother Diabetes CVA (cerebral vascular accident) Maternal Grandmother Colon cancer Maternal Aunt Breast cancer Paternal Uncle Pancreas cancer Family/Other Bone cancer Social History Housing: Apartment Alcohol intake: never Patient Tobacco Use Status: Former Tobacco user e-Cigarette/Vaping Use: Never Used Second Hand Smoke Exposure: No service: No Current occupational status: employed 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 1. Little interest or pleasure in doing things: not at all 2. Feeling down, depressed, or hopeless: not at all 3. Trouble falling or staying asleep, or sleeping too much: not at all 4. Feeling tired or having little energy: not at all 5. Poor appetite or overeating: not at all 6. Feeling bad about yourself - or that you are a failure or have let yourself or your family down: not at all 7. Trouble concentrating on things, such as reading the newspaper or watching television: not at all 8. Moving or speaking so slowly that other people could have noticed. Or the opposite - being so fidgety or restless that you have been moving around a lot more than usual: not at all 9. Thoughts that you would be better off or of hurting yourself in some way: not at all Total score: 0 Depression Screening Interpretation: Negative Depression Screening Done: Yes 93056 - PHQ-9 Billing: Yes Source: Developed by Drs. Adrien Hollingsworth, Tiffanie Alford, Damien Zavala and colleagues, with an educational dede from [employer] Thrive Questionnaire Date Thrive assessed: 10/03/24 I am a: Patient What is your living situation today?: I have a steady place to live Within the past 12 months, did the food you bought not last and you didn't have the money to get more?: Never true Within the past 12 months, did you worry whether your food would run out before you got money to buy more?: Never true Do you have trouble paying for medicines?: No Do you have trouble getting transportation to medical appointments?: No Do you have trouble paying your heating and electricity bill?: No Do you have trouble taking care of your child, family member or friend?: No Do you have trouble with day-to-day activities such as bathing, preparing meals, shopping, managing finances, etc.?: No Are you currently unemployed and looking for a job?: No Are you interested in more education?: No Please select the resources that you would like help with: None Currently or been in a relationship where the following occur: No concerns reported THRIVE Score: 0 AUDIT C Alcohol Use Questionnaire (AUDIT-C) 1. How often do you have a drink containing alcohol?: Never 3. How often do you have six or more drinks on one occasion?: Never Total Score: 0 Score Reviewed/Action Taken: No FRITZ-7 AMB Questionnaire FRITZ-7 Date FRITZ - 7 assessed: 10/03/24 Feeling nervous, anxious, or on edge: 0 = Not at all Not being able to stop or control worryin = Not at all Worrying too much about different things: 0 = Not at all Trouble relaxin = Not at all Being so restless that it is hard to sit still: 0 = Not at all Becoming easily annoyed or irritable: 0 = Not at all Feeling afraid as if something awful might happen: 0 = Not at all Total FRITZ-7 score (0-4 normal; 5-9 mild; 10-14 moderate; 15-21 severe): 0 Source: Developed by Drs. Adrien Hollingsworth, Tiffanie Alford, Damien Zavala and colleagues, with an educational dede from [employer] FRITZ-7 Assessment Billing FRITZ-7 Assessment Tool: FRITZ-7 Assessment 69376 Review of Systems Const All systems reviewed & are unremarkable except as noted in HPI and below Card Denies chest pain at rest, Denies chest pain with activity, Denies edema, Denies irregular heart rhythm, Denies claudication, Denies dyspnea, Denies dyspnea on exertion, Denies orthopnea, Denies paroxysmal nocturnal dyspnea and Denies slow heart rate Resp Denies cough, Denies dyspnea and Denies dyspnea on exertion GI Denies abdominal pain, Denies change in bowel habits, Denies excessive flatus, Denies nausea and Denies vomiting Musc Reports arthralgias Physical exam (Primary Care) Vital Signs: Last Vital Signs Pulse 76 10/03/24 15:31 BP 106/66 10/03/24 15:31 Pulse Ox 97 10/03/24 15:31 Oxygen Delivery Method Room Air 10/03/24 15:31 BMI result Body Mass Index 36.5 BMI Assessment/Plan discussion: High BMI High, discussed plan: lifestyle, weight reduction, dietary and physical activity Tobacco/Smoking Status: Tobacco use Status Tobacco use date assessed 01/08/24 10/03/24 15:31 Patient Tobacco Use Status Former Tobacco user 10/03/24 15:31 Tobacco use type 01/04/23 15:30 e-Cigarette/Vaping Use Never Used 10/03/24 15:31 PHQ-9: PHQ-9 Score PHQ-9: Total score 0 10/03/24 15:46 Depression Screening Interpretation: Negative Thrive Assessment: Date of Thrive Assessment Date Thrive assessed 10/03/24 10/03/24 15:42 Currently or been in a relationship where the following occur: No concerns reported [facility] Head: Yes normal to inspection, Yes normocephalic and Yes atraumatic Ears: external ears normal Eyes General: appearance normal, both eyes and all related structures Eyelids: Yes eyelids normal Conjunctivae: conjunctivae normal Neck Neck: Yes normal visual inspection and Yes supple Resp Effort & Inspection: normal respiratory effort Auscultation: clear to auscultation bilaterally Cardio Jugular venous distension: no JVD Rate: regular rate Rhythm: regular rhythm Heart sounds: S1 normal heart sound present and S2 normal heart sound present GI Inspection: Yes normal to inspection Palpation (GI): Soft to palpation and nontender Auscultation: normal bowel sounds Skin General skin exam: no rashes or lesions noted Neuro General: no focal motor deficits Extrem General: Yes full ROM Psych Appearance: grossly normal Office Procedures Flu Questionnaire Does the patient have a severe egg allergy?: No Does the patient have severe life threatening allergies?: No Does the patient have a fever or illness today?: No Has the patient ever had Guillain-Benton Syndrome?: No Has the patient ever had any past reaction to a flu shot?: No Immunizations Fluarix Triv [id number] (PF) 45 mcg (15 mcg x 3)/0.5 mL IM syringe Performing Provider: Pamela Sellers MD [facility] [place] [facility] Administered by: KEELY Conley on 10/03/24 15:46 Dose Route Admin Location Dispensed Lot Number Expiration Date [place] [facility] 0.5 mL IM Left Deltoid 0.5 mL [id number] 03/30/25 [id number] [email or web address] VIS Given Date VIS Provided VIS Publication Date 10/03/24 Single Vaccine 21 Eligibility Eligibility Date Funding Source Not VFC Eligible 10/03/24 Private Coding Level of Care Code Est Pt Level 3 (45407) Est Pt Prev Care 40-64y(33429) Diagnoses Physical exam Z00.00 Right hip pain M25.551 Left hip pain M25.552 Additional Codes FRITZ-7 Assessment Billing - FRITZ-7 Assessment Tool: FRITZ-7 Assessment 87076 ([id number]) PHQ-9 - 16305 - PHQ-9 Billing: Yes ([id number]) Time Spent (min) 33 Assessment & Plan Assessment & Plan (1) Physical exam: Code(s): Z00.00 - Encounter for general adult medical examination without abnormal findings Category: Medical (2) Right hip pain: Code(s): M25.551 - Pain in right hip Category: Medical (3) Left hip pain: Code(s): M25.552 - Pain in left hip Category: Medical Plan - Consider follow-up on mammogram results when available - Continue metoprolol for paroxysmal atrial fibrillation with annual cardiology review - Evaluate hip pain further with imaging studies to rule out bursitis - Monitor proteinuria with repeat urine analysis and consult nephrology if warranted - Recommend continuation of omeprazole for GERD management - Reinforce weight management practices in conjunction with [facility] Patient was informed and verbally consented to the use of an ambient scribe for clinic note documentation during this visit. I discussed with the patient the importance of routine screenings and vaccinations as part of her health maintenance, including the pending mammogram results and the need for a Pap smear. We addressed her progress in weight management, emphasizing the correlation with her current medication regimen. In regards to her hip pain, I recommended imaging to rule out possible bursitis and explored non-pharmacologic methods to manage symptoms. Proteinuria was discussed and repeat analysis will be needed for assessment. We also reviewed the role of lifestyle interventions in managing her chronic conditions, emphasizing the importance of maintaining her diet and exercise routine. I provided anticipatory guidance and emphasized the importance of follow-up appointments and reaching out if additional health changes occur. Orders: Orders Influenza [id number] Immunization Today Z23 - Encounter for immunization Comprehensive [place]. Panel Fast Today Z00.00 - Encounter for general adult medical examination without abnormal findings Lipid Panel Today Z00.00 - Encounter for general adult medical examination without abnormal findings UA CC w/rflx Micro + Cult Today R30.0 - Dysuria XR hip LT 1V Today M25.552 - Pain in left hip XR hip RT 1V Today M25.551 - Pain in right hip Medications: New fluocinolone acetonide oil 0.01% (DermOtic Oil) 5 drps otic (ear) left BID 7 days 20 mL 0RF Discontinued semaglutide (weight loss) (Wegovy) Discontinued Reason: Patient Completed Course 1 mg (0.5 mL) subcut Q7D 4 weeks 2 mL 0RF E66.01 - Morbid (severe) obesity due to excess calories, Z68.41 - Body mass index [BMI] 40.0-44.9, adult semaglutide (weight loss) (Wegovy) administer weeks 13 through 16 of therapy Discontinued Reason: Patient Completed Course 1.7 mg (0.75 mL) subcut QWEEK 4 weeks 3 mL 0RF Patient Instructions: - Continue taking metoprolol as prescribed - Follow up on the availability and continue the usage of Wegovy - Follow dietary and exercise recommendations for weight management - Await notification regarding mammogram results - Schedule Pap smear if not done recently - Employ non-pharmacological pain relief strategies for hip pain until imaging is done - Use ear protection at work as required - Report any new or worsening symptoms, particularly related to hip pain or signs of proteinuria - Maintain scheduled follow-up for ongoing management of health conditions
== END 2024-10-03 16:10 | disposition home or self-care (01) ==
PROVIDERS: PCP Internal Medicine; Visit Provider Internal Medicine
DX: Z00.00 Encounter for general adult medical examination without abnormal findings (principal); M25.551 Pain in right hip; M25.552 Pain in left hip; Z23 Encounter for immunization

== ENCOUNTER → 2024-10-03 15:05 | Outpatient (BNVA) | payer OTHER, SELFPAY | PROVIDERS: PCP Internal Medicine; Visit Provider Internal Medicine | DX: I48.0 Paroxysmal atrial fibrillation (principal); M25.551 Pain in right hip; M25.552 Pain in left hip; R30.0 Dysuria; E66.01 Morbid (severe) obesity due to excess calories; Z68.41 Body mass index [BMI] 40.0-44.9, adult; Z23 Encounter for immunization | CPT/HCPCS: 90471; 90656; 96127; 99212; 99396 ==

== ENCOUNTER 2024-10-04 07:24 | Outpatient (REF) | payer OTHER, SELFPAY ==
[2024-10-04 08:12] LABS: Alanine Aminotransferase 23 U/L (0-31); Albumin Level 3.6 g/dL (3.5-5.0); Alkaline Phosphatase 68 U/L (39-117); Anion Gap 10 (12-20); Aspartate Amino Transferase 20 U/L (5-31); Bilirubin Total 0.6 mg/dL (0.0-1.0); Blood Urea Nitrogen 12 mg/dL (9-16); Calcium 8.7 mg/dL (8.4-10.2); Carbon Dioxide 24 mmol/L (22-29); Chloride 109 mmol/L (96-108); Cholesterol 161 mg/dL (<200); Estimated Glomerular Filt Rate > 60; Glucose Fasting 89 mg/dL (60-99); HDL Cholesterol 41 mg/dL (>40); LDL Cholesterol Calculated 109 mg/dL (<100); Sodium 139 mmol/L (135-145); Total Protein 6.9 g/dL (6.5-8.0); Triglycerides 59 mg/dL (<150)
[2024-10-04 08:27] LABS: Appearance Urine Cloudy; Color Urine Yellow; Glucose Urine UA Negative (Negative); Leukocyte Esterase Urine Small (1+) (Negative); Nitrite Urine Negative (Negative); PH 5.5 (5.0-9.0); UMIC TRIGGER UACC YES; Urine Blood Negative (Negative); Urine Ketones Negative (Negative); Urine Protein Negative (Neg-Trace)
[2024-10-04 08:33] LABS: Bacteria Urine 1+ (None Seen); Hyaline Casts Urine 0-2 /LPF (0-2); RBC Urine 0-2 /HPF (0-2); UACC Culture Trigger YES
== END 2024-10-04 07:25 | disposition home or self-care (01) ==
LOC: HO.LAB 07:24
PROVIDERS: PCP Internal Medicine; Visit Provider Internal Medicine
DX: Z00.00 Encounter for general adult medical examination without abnormal findings (principal)
CPT/HCPCS: 36415; 80053; 80061; 81001; 87086

== ENCOUNTER 2025-02-04 14:51 | Outpatient (AMB) | payer OTHER, SELFPAY ==
--- NOTE | 2025-02-04 14:54 | A.OFFPC_ITS ---
Vital Signs 02/04/25 14:55 Height 5 ft 9 in Weight 238 lb BMI 35.1 BP 102/74 Blood Pressure Location Lt brachial Position Sitting Intake Visit Reasons: obesity, gerd Intake Note: Patient here for a follow up obesity, gerd Driver Starting Gate Required: No Accompanied by: Self / Same As Patient Allergies oxycodone [OXYCODONE] Allergy (Intermediate, Verified 02/04/25 15:05) PALPITATIONS, tachycardia, SOB,agitation Medication List - Last Reconciled 02/04/25 by Pamela Sellers MD cetirizine 10 mg PO DAILY PRN 90 days clotrimazole-betamethasone 1-0.05 % 1 appl topical BID 2 weeks diphenhydramine HCl (Allergy (diphenhydramine)) 25 mg PO TID PRN flecainide 50 mg PO BID 90 days fluocinolone acetonide oil 0.01% (DermOtic Oil) 5 drps otic (ear) left BID 7 days fluticasone propionate 50 mcg/actuation 1 spray intranasal DAILY metoprolol succinate ER 25 mg PO DAILY 90 days nystatin 1 appl topical BID 2 weeks omeprazole 20 mg PO DAILY 90 days ondansetron 4 mg PO Q8H 4 days semaglutide (weight loss) (Wegovy) 2.4 mg (0.75 mL) subcut QWEEK 4 weeks sertraline 25 mg PO DAILY 90 days Tobacco use date assessed: 02/04/25 Dental Screening Dental Screen Date: 02/04/25 Did you have a dental visit in the last 12 months?: No Did you have a dental problem in the last 6 months where you did not have access to dental care?: No Was dental information given to patient?: Patient has dentist HPI HPI Comments History of Present Illness0 Details The patient is a 45-year-old female presenting for weight management along with management of her obesity, atrial fibrillation, and other chronic conditions. She has been utilizing Wegovy for about a year to address her obesity, although initial adherence was inconsistent. Since initiating treatment, her weight decreased notably from 281 lbs in December 2023 to 238 lbs currently, with corresponding reduction in BMI from 41.5 to 35.1. Recent dietary changes have facilitated ongoing weight reduction, breaking previously observed plateaus. The patient will transition from Wegovy to Zepbound effective January 29 due to insurance coverage changes. She continues treatment for paroxysmal atrial fibrillation with Flecainide and Metoprolol without mentioned complications during this visit. For gastroesophageal reflux, she reports success with omeprazole therapy. Allergic rhinitis is managed with a nasal spray, and she avoids Oxycodone due to allergie s. Topical medication is employed for eczema management, acknowledging a specific need for continuity in its use. [facility] Medical History (Updated 02/04/25 @ 15:24 by Pamela Sellers MD) Morbid obesity with BMI of 40.0-44.9, adult Family history of pancreatic cancer Skin lesions Obesity (BMI 35.0-39.9 without comorbidity) Lumbar pain PAF (paroxysmal atrial fibrillation) Upper back pain Trigger finger Numbness of left hand Allergic rhinitis Obesity Surgical History History of surgical removal of skin lesion (~02/15/23) History of carpal tunnel release History of lumpectomy of right breast History of tubal ligation Family History Father Diabetes Hypertension Parkinson disease Mother Diabetes CVA (cerebral vascular accident) Maternal Grandmother Colon cancer Maternal Aunt Breast cancer Paternal Uncle Pancreas cancer Family/Other Bone cancer Social History Housing: Apartment Alcohol intake: never Patient Tobacco Use Status: Former Tobacco user e-Cigarette/Vaping Use: Never Used Second Hand Smoke Exposure: No service: No Current occupational status: employed Current occupation: [employer] - right handed Current occupational exposures/hazards: No Cognitive needs: No Hearing needs: No Vision needs: Yes Questionnaire Thrive Questionnaire Date Thrive assessed: 10/03/24 I am a: Patient What is your living situation today?: I have a steady place to live Within the past 12 months, did the food you bought not last and you didn't have the money to get more?: Never true Within the past 12 months, did you worry whether your food would run out before you got money to buy more?: Never true Do you have trouble paying for medicines?: No Do you have trouble getting transportation to medical appointments?: No Do you have trouble paying your heating and electricity bill?: No Do you have trouble taking care of your child, family member or friend?: No Do you have trouble with day-to-day activities such as bathing, preparing meals, shopping, managing finances, etc.?: No Are you currently unemployed and looking for a job?: No Are you interested in more education?: No Please select the resources that you would like help with: None Currently or been in a relationship where the following occur: No concerns reported THRIVE Score: 0 AUDIT C Alcohol Use Questionnaire (AUDIT-C) 3. How often do you have six or more drinks on one occasion?: Never Total Score: 0 FRITZ-7 AMB Questionnaire FRITZ-7 Date FRITZ - 7 assessed: 10/03/24 Source: Developed by Drs. Adrien Hollingsworth, Tiffanie Alford, Damien Zavala and colleagues, with an educational dede from [employer]. Review of Systems Const All systems reviewed & are unremarkable except as noted in HPI and below Card Denies chest pain at rest, Denies chest pain with activity, Denies edema, Denies irregular heart rhythm, Denies claudication, Denies dyspnea, Denies dyspnea on exertion, Denies orthopnea, Denies paroxysmal nocturnal dyspnea and Denies slow heart rate Resp Denies cough, Denies dyspnea and Denies dyspnea on exertion GI Denies abdominal pain, Denies change in bowel habits, Denies excessive flatus, Denies nausea and Denies vomiting Denies urinary incontinence, Denies urinary hesitancy and Denies urinary urgency Musc Denies atrophy, Denies deformity and Denies limited range of motion Physical exam (Primary Care) Vital Signs: Last Vital Signs BP 102/74 02/04/25 14:55 BMI result Body Mass Index 35.1 BMI Assessment/Plan discussion: High BMI High, discussed plan: lifestyle, weight reduction, dietary and physical activity Tobacco/Smoking Status: Tobacco use Status Tobacco use date assessed 02/04/25 02/04/25 15:00 Patient Tobacco Use Status Former Tobacco user 02/04/25 15:00 Tobacco use type 01/07/25 13:32 e-Cigarette/Vaping Use Never Used 02/04/25 15:00 Thrive Assessment: Date of Thrive Assessment Date Thrive assessed 10/03/24 02/04/25 15:00 Currently or been in a relationship where the following occur: No concerns reported Resp Effort & Inspection: normal respiratory effort Auscultation: clear to auscultation bilaterally Cardio Jugular venous distension: no JVD Rate: regular rate Rhythm: regular rhythm Heart sounds: S1 normal heart sound present and S2 normal heart sound present Extrem General: Yes full ROM Coding Level of Care Code Est Pt Level 4 (14746) Complex EM visit Add On G2211 Diagnoses Chronic GERD K21.9 PAF (paroxysmal atrial fibrillation) I48.0 Class 2 obesity due to excess calories without serious comorbidity with body mass index (BMI) of 38.0 to 38.9 in adult E66.09; Z68.38 Body mass index: BMI 38.0-38.9 Obesity classification: adult class 2 (BMI 35 - 39.9) Obesity type: due to excess calories Serious obesity comorbidity presence: without serious comorbidity Allergic rhinitis J30.9 JORGE (obstructive sleep apnea) G47.33 Time Spent (min) 24 Assessment & Plan Assessment & Plan (1) Chronic GERD: Code(s): K21.9 - Gastro-esophageal reflux disease without esophagitis Category: Medical (2) PAF (paroxysmal atrial fibrillation): Code(s): I48.0 - Paroxysmal atrial fibrillation Category: Medical (3) Obesity: Code(s): E66.9 - Obesity, unspecified Category: Medical Qualifiers: Body mass index: BMI 38.0-38.9 Obesity classification: adult class 2 (BMI 35 - 39.9) Obesity type: due to excess calories Serious obesity comorbidity presence: without serious comorbidity Qualified Code(s): E66.09 - Other obesity due to excess calories; Z68.38 - Body mass index [BMI] 38.0-38.9, adult (4) Allergic rhinitis: Code(s): J30.9 - Allergic rhinitis, unspecified Category: Medical (5) Allergic rhinitis: Code(s): J30.9 - Allergic rhinitis, unspecified Category: Medical Qualifiers: Allergic rhinitis trigger: pollen Allergic rhinitis seasonality: seasonal Qualified Code(s): J30.1 - Allergic rhinitis due to pollen (6) JORGE (obstructive sleep apnea): Code(s): G47.33 - Obstructive sleep apnea (adult) (pediatric) Category: Medical Plan The patient will transition to [facility] for continued obesity management, necessitated by insurance changes. She will maintain dietary and exercise adjustments to promote her weight loss, which has been significant yet fluctuating. Current medications including Flecainide, Metoprolol, and omeprazole continue as noted effective treatments. Eczema requires ongoing topical management and allergy precautions against Oxycodone should be strictly adhered. Patient was informed and verbally consented to the use of an ambient scribe for clinic note documentation during this visit. I explained the transition from Wegovy to Zepbound due to insurance coverage changes and discussed ongoing monitoring of weight management through diet and exercise. I reiterated the importance of adhering to her prescribed treatments for atrial fibrillation, GERD, and allergic rhinitis. We reviewed her current medications and the benefits observed. I emphasized the significance of dietary adjustments and exercise in facilitating weight stabilization. The patient was advised on comprehensive indications for continuing her current health regimen, confirming understanding and agreement with the outlined plan. Medications: New fluocinolone acetonide oil 0.01% (DermOtic Oil) 5 drps otic (ear) left BID 20 mL 0RF 7 days tirzepatide (weight loss) (Zepbound) for 4 weeks 2.5 mg (0.5 mL) subcut QWEEK 2 mL 0RF 4 weeks E66.9 - Obesity, unspecified Refilled omeprazole 20 mg PO DAILY 90 caps 0RF 90 days fluticasone propionate 50 mcg/actuation 1 spray intranasal DAILY 32 mL 1RF Discontinued semaglutide (weight loss) (Wegovy) Discontinued Reason: Patient Completed Course 2.4 mg (0.75 mL) subcut QWEEK 4 weeks 3 mL 11RF Patient Instructions: - Transition to Zepbound as directed on January 29. - Continue current medication regimen. - Keep following diet adjustments for weight loss. - Stay active with regular exercise. - Use eczema and allergy medications as prescribed. - Avoid Oxycodone due to documented allergy. - Adhere to recommendations for GERD management. - Schedule follow-up to reassess effectiveness of new treatments.
[2025-02-04 14:55] VITALS: BP 102/74; BMI 35.1
--- OUTSIDE RECORDS SUMMARY | 2025-02-04 15:58 | XMS_ITS | Clinical Summary ---
Author Organization [email or web address] Address [address] [place] [address] Care Team Providers Care Bed And Breakfast Cook Name Role Phone Unavailable Primary Care Provider Unavailabl e Social History Tobacco Use Types Packs/Day Years Used Date Smoking Tobacco: Never Assessed Comments Unknown Sex and Gender Information Value Date Recorded Sex Assigned at Female 07/31/2022 10:22 AM EDT Legal Sex Female 10:22 AM EDT Gender Identity Not on file Sexual Orientation Not on file Plan of Treatment Health Maintenance Due Date Last Done Comments CT Colonography 1980 Colonoscopy 1980 Colorectal Cancer Screening 1980 Depression Screening 1980 FIT DNA/Cologuard 1980 FIT 1980 FOBT 1980 Sigmoidoscopy 1980 Alcohol/Substance Use Screening 1992 Tobacco Screening 1992 Family Planning (PISQ) 01/23/1995 Hepatitis B Vaccines (1 of 3 - 19+ 3-dose series) 01/23/1999 Pap Smear 01/23/2001 Cervical Cancer Screening 01/23/2010 HPV/Cotest 01/23/2010 Mammogram 2020 COVID-19 Vaccine ( season) 2024 04/17/2021, 03/27/2021 Influenza Vaccine (#1) 2024 , 06/19/2019, 07/03/2017, Additional history exists DTaP/Tdap/Td Vaccines (2 - Td or Tdap) 07/26/2026 07/26/2016 Zoster Vaccines (1 of 2) 01/23/2030 RSV Patients and Patients Aged 60 years or older (1 - 1-dose 75+ series) 01/23/2055 HIB Vaccines Aged Out No longer eligi ble based on patient's age to complete this topic HPV Vaccines Aged Out No longer eligi ble based on patient's age to complete this topic Hepatitis A Vaccines Aged Out No long er eligible based on patient's age to complete this topic IPV Vaccines Aged Out No longer eligi ble based on patient's age to complete this topic Meningococcal Vaccine Aged Out No gerhard wilmer eligible based on patient's age to complete this topic Pneumococcal Vaccine: Pediatrics (0 to 5 Years) and At-Risk Patients (6 to 49) Years) Aged Out No longer eligible based on patient's age to complete this topic RSV under 20 months Aged Out No longe r eligible based on patient's age to complete this topic Rotavirus Vaccines Aged Out No longer eligible based on patient's age to complete this topic
--- OUTSIDE RECORDS SUMMARY | 2025-02-04 15:58 | XMS_ITS | Encounter Summary ---
Author Organization [employer] [facility] Address [address] [place] [address] Care Team Providers Care Esl Professor Name Role Phone Unavailable Primary Care Provider Unavailabl e Encounter Details Date Type Department Care Team (Latest Contact Info) Description 11/20/2018 Abstract [facility] CONVERSIONS Dental, Provider, DDS Social History Tobacco Use Types Packs/Day Years Used Date Smoking Tobacco: Never Assessed Comments Unknown Sex and Gender Information Value Date Recorded Sex Assigned at Female 07/31/2022 10:22 AM EDT Legal Sex Female 10:22 AM EDT Gender Identity Not on file Sexual Orientation Not on file documented as of this encounter Plan of Treatment Not on file documented as of this encounter Visit Diagnoses Not on filedocumented in this encounter
== END 2025-02-04 15:20 | disposition home or self-care (01) ==
LOC: HO.HMCH 14:52
PROVIDERS: PCP Internal Medicine; Visit Provider Internal Medicine
DX: K21.9 Gastro-esophageal reflux disease without esophagitis (principal); I48.0 Paroxysmal atrial fibrillation; E66.09 Other obesity due to excess calories; Z68.38 Body mass index [BMI] 38.0-38.9, adult; J30.9 Allergic rhinitis, unspecified; G47.33 Obstructive sleep apnea (adult) (pediatric); J30.1 Allergic rhinitis due to pollen

== ENCOUNTER → 2025-02-04 14:51 | Outpatient (BNVA) | payer OTHER, SELFPAY | PROVIDERS: PCP Internal Medicine; Visit Provider Internal Medicine | DX: K21.9 Gastro-esophageal reflux disease without esophagitis (principal); I48.0 Paroxysmal atrial fibrillation; E66.09 Other obesity due to excess calories; Z68.38 Body mass index [BMI] 38.0-38.9, adult; J30.9 Allergic rhinitis, unspecified; G47.33 Obstructive sleep apnea (adult) (pediatric) | CPT/HCPCS: 99212 ==

== ENCOUNTER 2025-05-18 08:05 | Outpatient (AMB) | payer OTHER, SELFPAY ==
--- OUTSIDE RECORDS SUMMARY | 2025-05-18 08:09 | XMS_ITS | Clinical Summary ---
Author Organization [employer] Address [address] [place] [address] Care Team Providers Care Food Safety Specialist Name Role Phone Unavailable Primary Care Provider [...] 1980 FIT 1980 FOBT 1980 Sigmoidoscopy 1980 Disability Screening 1980 Alcohol/Substance Use Screening 1992 Tobacco Screening 1992 Family Planning (PISQ) 01/23/1995 HPV Vaccines (1 - 3-dose series) 01/23/1995 Hepatitis B Vaccines (1 of 3 - 19+ 3-dose series) 01/23/1999 Pap Smear 01/23/2001 Cervical Cancer Screening 01/23/2010 HPV/Cotest 01/23/2010 Mammogram 2020 COVID-19 Vaccine ( - season) 2024 04/17/2021, 03/27/2021 Influenza Vaccine (#1) 2025 , 06/19/2019, 07/03/2017, Additional history exists DTaP/Tdap/Td [...] patient's age to complete this topic Meningococcal B Vaccine Aged Out No l onger eligible based on patient's age to complete this topic Meningococcal Vaccine Aged Out No gerhard wilmer eligible based on patient's age to complete this topic Pneumococcal Vaccine: Pediatrics (0 to 5 Years) and At-Risk Patients (6 to 49) Years Aged Out No longer eligible based on patient's age to complete this topic RSV under 20 months Aged Out No longe r eligible based on patient's age to complete this topic Rotavirus Vaccines Aged Out No longer eligible based on patient's age to complete this topic
--- NOTE | 2025-05-18 08:17 | MHC.OFFWIV ---
Intake Vital Signs 05/18/25 08:20 Height 5 ft 9 in Weight 243 lb BMI 35.9 BP 100/64 Blood Pressure Location Lt brachial Position Sitting Pulse 92 Pulse Source Pulse Oximeter Temp 99.3 F Temp Source Oral Pulse Oximetry (%) 97 Oxygen Delivery Method Room Air Intake Visit Reasons: EP-covid symptoms Intake Note: presents with headaches, throat pain, sinus congestion, body chills at night, body sweats Patient Tobacco Use Status: Former Tobacco user Allergies oxycodone (OXYCODONE) Allergy (Intermediate, Verified 05/18/25 08:21) PALPITATIONS, tachycardia, SOB,agitation Do you need a note to return to daycare/school/sports/work: Yes HPI HPI Comments History of Present Illness Details History - The patient is a 45-year-old female presenting with congestion that began this am. - Symptoms began at 3:45 AM on the day of the visit, including headache, sore throat, runny nose, fever, and chills. - The patient was in contact with a sick partner over the weekend, though the partner's COVID-19 status is unknown. - No history of asthma or ear pain was reported. - She denies fever, chills, CP, SOB, abd pain, or n/v/d. Physical Exam General: Cooperative, healthy appearing, comfortable and no acute distress Orientation/consciousness: Patient oriented x3 Limitations: No limitations Head: Normal to inspection Ears: Hearing grossly normal bilaterally, external ears normal and TM's normal bilaterally Nose: Normal external nose present, normal nares present, and runny nose present. Face and sinus: Sinuses nontender to palpation. Mouth: Normal oral and palatal mucosa present and moist mucous membranes noted. Throat: Sore throat present. Uvula is midline. Posterior oropharynx with erythema and no exudates. Eyes: Appearance normal, both eyes and all related structures Neck: Normal visual inspection, full ROM. No lymphadenopathy noted. Respiratory: Clear to auscultation bilaterally. Normal respiratory effort, able to speak in complete sentences. No respiratory distress, not tachypneic, no tripod positioning and no use of accessory muscles. Cardiovascular: Regular rate and rhythm. Normal S1 and S2 Skin: No rashes or lesions noted Patient was informed and verbally consented to the use of an ambient scribe for clinic note documentation during this visit [facility] Medical History Morbid obesity with BMI of 40.0-44.9, adult Family history of pancreatic cancer Skin lesions Obesity (BMI 35.0-39.9 without comorbidity) Lumbar pain PAF (paroxysmal atrial fibrillation) Upper back pain Trigger finger Numbness of left hand Allergic rhinitis Obesity Surgical History History of surgical removal of skin lesion (~02/15/23) History of carpal tunnel release History of lumpectomy of right breast History of tubal ligation Family History Father Diabetes Hypertension Parkinson disease Mother Diabetes CVA (cerebral vascular accident) Maternal Grandmother Colon cancer Maternal Aunt Breast cancer Paternal Uncle Pancreas cancer Family/Other Bone cancer Social History Housing: Apartment Alcohol intake: never Patient Tobacco Use Status: Former Tobacco user e-Cigarette/Vaping Use: Never Used Second Hand Smoke Exposure: No service: No Current occupational status: employed Current occupation: [employer] - right handed Current occupational exposures/hazards: No Cognitive needs: No Hearing needs: No Vision needs: Yes Physical Exam Vital Signs: Last Vital Signs Temp 99.3 F 05/18/25 08:20 Pulse 92 05/18/25 08:20 BP 100/64 05/18/25 08:20 Pulse Ox 97 05/18/25 08:20 Oxygen Delivery Method Room Air 05/18/25 08:20 BMI result Body Mass Index 35.9 Assessment & Plan Assessment & Plan (1) Nasal congestion: Code(s): R09.81 - Nasal congestion Plan Most likely viral illness vs covid vs flu vs RSV Plan - COVID-19 test was performed and sent to the lab for analysis. - Patient advised to rest and await results, which will be communicated via phone call. - Tylenol or Motrin as needed - Mucinex as needed - follow up with PCP Orders: Orders AMB Rapid Strep Screen Today Z13.9 - Encounter for screening, unspecified Coding Level of Care Code Est Pt Level 3 (20991) Diagnoses Nasal congestion R09.81
[2025-05-18 08:20] VITALS: BP 100/64; PULSE 92; TEMP 37.4; O2SAT 97; BMI 35.9
== END 2025-05-18 09:40 | disposition home or self-care (01) ==
PROVIDERS: PCP Internal Medicine; Visit Provider Physician Assistant Medical
DX: Z13.9 Encounter for screening, unspecified (principal); R09.81 Nasal congestion

== ENCOUNTER 2025-05-18 08:05 | Outpatient (REF) | payer OTHER, SELFPAY ==
[2025-05-18 17:02] LABS: Resp Syncy Virus RNA Qual PCR NEGATIVE (Negative); SARS COV2 PCR INHOUSE NEGATIVE (Negative)
== END 2025-05-18 08:06 | disposition home or self-care (01) ==
LOC: HO.LNP 08:05
PROVIDERS: PCP Internal Medicine; Visit Provider Physician Assistant Medical
DX: R09.81 Nasal congestion (principal); Z13.89 Encounter for screening for other disorder
CPT/HCPCS: 87637; 87880; 99212

== ENCOUNTER 2025-06-15 12:43 | Outpatient (AMB) | payer OTHER, SELFPAY ==
--- NOTE | 2025-06-15 13:19 | MHC.OFFVIS ---
Vital Signs 06/15/25 13:20 Height 5 ft 9 in Weight 235 lb 14.314 oz BMI 34.8 BP 110/60 Blood Pressure Location Lt brachial Position Sitting Pulse 87 Pulse Source Monitor Intake Visit Reasons: 1yr f/u r/s x 2 fr 01/08 Management Information Systems Director Required: Yes Management Information Systems Director Services: Management Information Systems Director Offered & Declined Allergies oxycodone (OXYCODONE) Allergy (Intermediate, Verified 05/18/25 08:21) PALPITATIONS, tachycardia, SOB,agitation Medication List - Last Reconciled 06/15/25 by James Jones MD cetirizine 10 mg PO DAILY PRN 90 days flecainide 50 mg PO BID 90 days fluocinolone acetonide oil 0.01% (DermOtic Oil) 5 drps otic (ear) left BID PRN fluticasone propionate 50 mcg/actuation 1 spray intranasal DAILY metoprolol succinate ER 25 mg PO DAILY 90 days omeprazole 20 mg PO DAILY 90 days sertraline 25 mg PO DAILY 90 days tirzepatide (weight loss) (Zepbound) 10 mg (0.5 mL) subcut QWEEK 4 weeks HPI Comments Details: Kaia returns for follow-up regarding atrial fibrillation. She has not had any atrial fibrillation in quite a few years. Overall, she feels good. She remains on flecainide and metoprolol. [facility] Medical History Morbid obesity with BMI of 40.0-44.9, adult Family history of pancreatic cancer Skin lesions Obesity (BMI 35.0-39.9 without comorbidity) Lumbar pain PAF (paroxysmal atrial fibrillation) Upper back pain Trigger finger Numbness of left hand Allergic rhinitis Obesity Surgical History History of surgical removal of skin lesion (~02/15/23) History of carpal tunnel release History of lumpectomy of right breast History of tubal ligation Family History Father Diabetes Hypertension Parkinson disease Mother Diabetes CVA (cerebral vascular accident) Maternal Grandmother Colon cancer Maternal Aunt Breast cancer Paternal Uncle Pancreas cancer Family/Other Bone cancer Social History Housing: Apartment Alcohol intake: never Patient Tobacco Use Status: Former Tobacco user e-Cigarette/Vaping Use: Never Used Second Hand Smoke Exposure: No service: No Current occupational status: employed Current occupation: [employer] - right handed Current occupational exposures/hazards: No Cognitive needs: No Hearing needs: No Vision needs: Yes Review of Systems Const Denies weakness ENT Denies dizziness Card Denies chest pain, Denies chest pain with activity, Denies syncope, Denies rapid heart rate, Denies pedal edema, Denies edema, Denies leg edema, Denies lightheadedness, Denies palpitations, Denies dyspnea, Denies dyspnea on exertion and Denies orthopnea Resp Denies cough, Denies dyspnea and Denies dyspnea on exertion GI Denies hematochezia and Denies change in stool character Musc Denies abnormal gait, Denies muscle cramps, Denies muscle weakness, Denies numbness, Denies radiating pain into limb and Denies tingling Neuro Denies abnormal gait, Denies dizziness, Denies syncope, Denies numbness, Denies tingling and Denies weakness Endo Denies palpitations Physical Exam Vital Signs: Last Vital Signs Pulse 87 06/15/25 13:20 BP 110/60 06/15/25 13:20 BMI result Body Mass Index 34.8 Const General: comfortable and no acute distress Orientation/consciousness: patient oriented x3 HEENT Other: Unremarkable Head: Yes normal to inspection Neck Neck: Yes normal visual inspection Chest Chest palpation & inspection: normal inspection of the chest Resp Auscultation: clear to auscultation bilaterally Cardio Palpation: normal PMI Heart sounds: S1 normal heart sound present, S2 normal heart sound present, no gallops, no murmurs and no rubs GI Palpation (GI): Soft to palpation Back/Spine/Pelvis Other: unremarkable Skin General skin exam: no rashes or lesions noted Neuro General: patient oriented x3 Extrem General: Yes normal to inspection Psych Mental Status: mental status grossly normal Office Procedures EKG Details: EKG with underlying sinus rhythm at 87/Min; no ischemic changes; [place] [id number], Complete Assessment & Plan Assessment & Plan (1) PAF (paroxysmal atrial fibrillation): Code(s): I48.0 - Paroxysmal atrial fibrillation Category: Medical Plan: As she has not had any atrial fibrillation for a long time, we discussed about coming off antiarrhythmics. We decided to stop the flecainide and keep her on metoprolol. If indeed she has any recurrences, she will contact us immediately. In that case, consider ablation. (2) Encounter for monitoring anti-arrhythmic therapy: Code(s): Z51.81 - Encounter for therapeutic drug level monitoring; Z79.899 - Other intermediate card tender (current) drug therapy Category: Medical Plan: Plan for flecainide as above. No issues in the EKG. (3) Obesity: Code(s): E66.9 - Obesity, unspecified Category: Medical Qualifiers: Body mass index: BMI 38.0-38.9 Obesity classification: adult class 2 (BMI 35 - 39.9) Obesity type: due to excess calories Serious obesity comorbidity presence: without serious comorbidity Qualified Code(s): E66.09 - Other obesity due to excess calories; Z68.38 - Body mass index [BMI] 38.0-38.9, adult Plan: She still overweight. Discussed about implications from this and the need for weight loss. (4) JORGE (obstructive sleep apnea): Code(s): G47.33 - Obstructive sleep apnea (adult) (pediatric) Category: Medical Plan: Continue CPAP. Plan Discussion Notes I discussed with the patient the possibility of discontinuing flecainide while continuing metoprolol to monitor for any recurrence of atrial fibrillation. We also talked about the option of an ablation procedure if atrial fibrillation returns, which could potentially eliminate the need for medication. A follow-up appointment was scheduled for six months to assess the patient's condition and the effectiveness of the current management plan. Patient was informed and verbally consented to the use of an ambient scribe for clinic note documentation during this visit. Patient Instructions: - Continue taking metoprolol as prescribed. - Discontinue flecainide and monitor for any symptoms of atrial fibrillation. - Schedule a follow-up appointment in six months. - Consider discussing the option of an ablation procedure if atrial fibrillation symptoms return. Coding Level of Care Code Est Pt Level 4 (42778) Complex EM visit Add On G2211 Diagnoses PAF (paroxysmal atrial fibrillation) I48.0 Encounter for monitoring anti-arrhythmic therapy Z51.81; Z79.899 Class 2 obesity due to excess calories without serious comorbidity with body mass index (BMI) of 38.0 to 38.9 in adult E66.09; Z68.38 Body mass index: BMI 38.0-38.9 Obesity classification: adult class 2 (BMI 35 - 39.9) Obesity type: due to excess calories Serious obesity comorbidity presence: without serious comorbidity JORGE (obstructive sleep apnea) G47.33 CPT Codes EKG - CPT: 34047-[id number], Complete ([id number])
[2025-06-15 13:20] VITALS: BP 110/60; PULSE 87; BMI 34.8
--- OUTSIDE RECORDS SUMMARY | 2025-06-15 17:26 | XMS_ITS | Encounter Summary ---
Author Organization [facility] Address [address] [place] [address] Care Team Providers Care Welfare Aide Name Role Phone Unavailable Primary Care Provider [...]
--- OUTSIDE RECORDS SUMMARY | 2025-06-15 17:26 | XMS_ITS | Clinical Summary ---
Author Organization [employer] Address [address] [place] [address] Care Team Providers Care Lumber Estimator Name Role Phone Unavailable Primary Care Provider [...] 01/23/2010 HPV/Cotest 01/23/2010 Mammogram 2020 COVID-19 Vaccine (3 - 2024- season) 2025 04/17/2021, 03/27/2021 Influenza Vaccine (#1) 2025 , [...]
== END 2025-06-15 14:05 | disposition home or self-care (01) ==
LOC: HO.HCS 12:44
PROVIDERS: PCP Internal Medicine; Visit Provider Internal Medicine
DX: I48.0 Paroxysmal atrial fibrillation (principal); Z51.81 Encounter for therapeutic drug level monitoring; Z79.899 Other long term (current) drug therapy; E66.09 Other obesity due to excess calories; Z68.38 Body mass index [BMI] 38.0-38.9, adult; G47.33 Obstructive sleep apnea (adult) (pediatric)
CPT/HCPCS: 93010; 99214

== ENCOUNTER → 2025-06-15 12:43 | Outpatient (BNVA) | payer OTHER, SELFPAY | PROVIDERS: PCP Internal Medicine; Visit Provider Internal Medicine | DX: I48.0 Paroxysmal atrial fibrillation (principal); E66.09 Other obesity due to excess calories; Z51.81 Encounter for therapeutic drug level monitoring; Z79.899 Other long term (current) drug therapy; Z68.38 Body mass index [BMI] 38.0-38.9, adult; G47.33 Obstructive sleep apnea (adult) (pediatric); Z99.89 Dependence on other enabling machines and devices | CPT/HCPCS: 93005; 99212 ==

== ENCOUNTER 2025-07-08 08:19 | Outpatient (AMB) | payer OTHER, SELFPAY ==
[2025-07-08 08:24] VITALS: BP 108/62; PULSE 98; RESP 16; TEMP 37.1; O2SAT 97; BMI 36.0
--- NOTE | 2025-07-08 08:24 | AM.OFFWIN_ITS ---
Intake Vital Signs 07/08/25 08:24 Height 5 ft 9 in Weight 244 lb BMI 36.0 BP 108/62 Blood Pressure Location Lt brachial Position Sitting Respiration 16 Pulse 98 Pulse Source Pulse Oximeter Temp 98.8 F Temp Source Oral Pulse Oximetry (%) 97 Oxygen Delivery Method Room Air Intake Visit Reasons: EP Left lower back pain Intake Note: * Pt is here today c/o Lt side of mid back pain into Lt buttocks: No injury noted since yesterday Patient Tobacco Use Status: Former Tobacco user Allergies oxycodone (OXYCODONE) Allergy (Intermediate, Verified 07/08/25 08:27) PALPITATIONS, tachycardia, SOB,agitation HPI HPI Comments History of Present Illness Details History - The patient is a 45-year-old female pr esenting with low back pain. - She reports pain started in the should ers and anterior back and now is in the left lower back. - She states that the pain has localized to one side and is exacerbated by sitting, bending, and lifting the leg. - Current pain management includes Tylen ol and lidocaine patches, which have been ineffective. - She has a history of atrial fibrillati on and is on metoprolol therapy. - She denies trauma or fall. - She denies CP, SOB, abd pain, n/v/d, d ysuria or hematuria. Physical Exam General: cooperative, healthy appearing and comfortable, patient oriented x3 Head: Normal to inspection, normocephalic/atraumatic Effort & Inspection: Normal respiratory effort and able to speak in complete sentences. Cardiac: RRR, no M/R/G noted. Normal S1 and S2. Respiratory: Clear to auscultation bilaterally. No w/r/r noted. Back/spine: No CVA tenderness bilaterally. Cervical, thoracic and lumbar spine normal to inspection. Cervical ROM normal, no midline spinous tenderness noted. Thoracic ROM normal, lumbar ROM normal. No midline vertebral spinous tenderness noted. No step offs noted. No TTP of the thoracic paraspinous or paravertebral muscles. TTP of the left lumbar paravertebral muscles. No SI joint tenderness noted. DTR are 2+ on the lower extremities noted. Ambulates with a steady gait. Extremities: Straight leg raise test positive on the affected side; motor strength normal 5/5 bilaterally. Neuro: Sensation intact. Patient was informed and verbally consented to the use of an ambient scribe for clinic note documentation during this visit. [facility] Medical History Morbid obesity with BMI of 40.0-44.9, adult Family history of pancreatic cancer Skin lesions Obesity (BMI 35.0-39.9 without comorbidity) Lumbar pain PAF (paroxysmal atrial fibrillation) Upper back pain Trigger finger Numbness of left hand Allergic rhinitis Obesity Surgical History History of surgical removal of skin lesion (~02/15/23) History of carpal tunnel release History of lumpectomy of right breast History of tubal ligation Family History Father Diabetes Hypertension Parkinson disease Mother Diabetes CVA (cerebral vascular accident) Maternal Grandmother Colon cancer Maternal Aunt Breast cancer Paternal Uncle Pancreas cancer Family/Other Bone cancer Social History Housing: Apartment Alcohol intake: never Patient Tobacco Use Status: Former Tobacco user e-Cigarette/Vaping Use: Never Used Second Hand Smoke Exposure: No service: No Current occupational status: employed Current occupation: [email or web address] - right handed Current occupational exposures/hazards: No Cognitive needs: No Hearing needs: No Vision needs: Yes Review of Systems Const All systems reviewed & are unremarkable except as noted in HPI and below Physical Exam Vital Signs: Last Vital Signs Temp 98.8 F 07/08/25 08:24 Pulse 98 07/08/25 08:24 Resp 16 07/08/25 08:24 BP 108/62 07/08/25 08:24 Pulse Ox 97 07/08/25 08:24 Oxygen Delivery Method Room Air 07/08/25 08:24 BMI result Body Mass Index 36.0 Assessment & Plan Assessment & Plan (1) Low back pain: Code(s): M54.50 - Low back pain, unspecified Qualifiers: Chronicity: acute Back pain laterality: left Sciatica presence: without sciatica Qualified Code(s): M54.50 - Low back pain, unspecified Plan Most likely strain vs sciatica Plan - Prescribe a muscle relaxant for a few days to alleviate back pain and sciatica symptoms. - Prescribe naproxen for pain management. - Advise the use of a heating pad, Tylenol, and Motrin for additional pain relief. - Provide a work excuse for the patient to rest until her follow-up appointment with her doctor. - suggest PT if pain does not improve - follow up with PCP Medications: New cyclobenzaprine 5 mg PO Q8H PRN 20 tabs 0RF Muscle Spasm naproxen 500 mg PO Q12H PRN 20 tabs 0RF pain 7 days Coding Level of Care Code Est Pt Level 3 (56616) Diagnoses Acute left-sided low back pain without sciatica M54.50 Chronicity: acute Back pain laterality: left Sciatica presence: without sciatica
== END 2025-07-08 09:07 | disposition home or self-care (01) ==
PROVIDERS: PCP Internal Medicine; Visit Provider Physician Assistant Medical
DX: M54.50 Low back pain, unspecified (principal)

== ENCOUNTER → 2025-07-08 08:19 | Outpatient (BNVA) | payer OTHER, SELFPAY | PROVIDERS: PCP Internal Medicine; Visit Provider Physician Assistant Medical | DX: E66.01 Morbid (severe) obesity due to excess calories (principal); M54.50 Low back pain, unspecified; Z68.36 Body mass index [BMI] 36.0-36.9, adult | CPT/HCPCS: 99212 ==

== ENCOUNTER 2025-07-13 16:18 | Outpatient (AMB) | payer OTHER, SELFPAY ==
[2025-07-13 16:21] VITALS: BP 110/70; PULSE 92; TEMP 36.3; O2SAT 99; BMI 35.9
--- NOTE | 2025-07-13 16:21 | MHC.PC.OV ---
Vital Signs 07/13/25 16:21 Height 5 ft 9 in Weight 243 lb 2 oz BMI 35.9 BP 110/70 Blood Pressure Location Lt brachial Position Sitting Pulse 92 Pulse Source Pulse Oximeter Temp 97.3 F Temp Source Temporal Artery Scan Pulse Oximetry (%) 99 Oxygen Delivery Method Room Air Intake Visit Reasons: gerd Procurement Cost Coordinator Required: No Gas Load Dispatcher: Not Required per policy Accompanied by: Self / Same As Patient Allergies oxycodone (OXYCODONE) Allergy (Intermediate, Verified 07/13/25 16:54) PALPITATIONS, tachycardia, SOB,agitation Medication List - Last Reconciled 07/13/25 by Pamela Sellers MD cetirizine 10 mg PO DAILY PRN 90 days cyclobenzaprine 5 mg PO Q8H PRN fluocinolone acetonide oil 0.01% (DermOtic Oil) 5 drps otic (ear) left BID PRN fluticasone propionate 50 mcg/actuation 1 spray intranasal DAILY metoprolol succinate ER 25 mg PO DAILY naproxen 500 mg PO Q12H PRN 7 days omeprazole 20 mg PO DAILY 90 days sertraline 25 mg PO DAILY 90 days tirzepatide (weight loss) (Zepbound) 12.5 mg (0.5 mL) subcut QWEEK 4 weeks Tobacco use date assessed: 07/13/25 Dental Screening Dental Screen Date: 07/13/25 HPI HPI Comments History of Present Illness Details The patient is a 45-year-old female presenting with sciatica and associated musculoskeletal pain. She reports generalized pain in the lower area, specifically in the hip and thigh, which began two weeks ago. The condition was identified as sciatica, although no platelet analysis was performed during the initial check. The patient has been prescribed Flexeril and naproxen, which cause drowsiness but provide some relief at night. Sitting or walking exacerbates the pain, and climbing stairs is particularly painful. The patient has a history of scoliosis and recalls a fall on her back, which may contribute to her current symptoms. She has been advised to undergo physical therapy and spinal imaging to further evaluate her condition. [facility] Medical History (Updated 07/13/25 @ 17:04 by Pamela Sellers MD) Morbid obesity with BMI of 40.0-44.9, adult Family history of pancreatic cancer Skin lesions Obesity (BMI 35.0-39.9 without comorbidity) Lumbar pain PAF (paroxysmal atrial fibrillation) Upper back pain Trigger finger Numbness of left hand Allergic rhinitis Obesity Surgical History History of surgical removal of skin lesion (~02/15/23) History of carpal tunnel release History of lumpectomy of right breast History of tubal ligation Family History Father Diabetes Hypertension Parkinson disease Mother Diabetes CVA (cerebral vascular accident) Maternal Grandmother Colon cancer Maternal Aunt Breast cancer Paternal Uncle Pancreas cancer Family/Other Bone cancer Social History Housing: Apartment Alcohol intake: never Patient Tobacco Use Status: Former Tobacco user e-Cigarette/Vaping Use: Never Used Second Hand Smoke Exposure: Yes service: No Current occupational status: employed Current occupation: [employer] - right handed Current occupational exposures/hazards: No Cognitive needs: No Hearing needs: No Vision needs: Yes Questionnaire Thrive Questionnaire Date Thrive assessed: 10/03/24 I am a: Patient What is your living situation today?: I have a steady place to live Within the past 12 months, did the food you bought not last and you didn't have the money to get more?: Never true Within the past 12 months, did you worry whether your food would run out before you got money to buy more?: Never true Do you have trouble paying for medicines?: No Do you have trouble getting transportation to medical appointments?: No Do you have trouble paying your heating and electricity bill?: No Do you have trouble taking care of your child, family member or friend?: No Do you have trouble with day-to-day activities such as bathing, preparing meals, shopping, managing finances, etc.?: No Are you currently unemployed and looking for a job?: No Are you interested in more education?: No Please select the resources that you would like help with: None Currently or been in a relationship where the following occur: No concerns reported THRIVE Score: 0 AUDIT C Alcohol Use Questionnaire (AUDIT-C) 1. How often do you have a drink containing alcohol?: Never 3. How often do you have six or more drinks on one occasion?: Never Total Score: 0 Score Reviewed/Action Taken: No FRITZ-7 AMB Questionnaire FRITZ-7 Date FRITZ - 7 assessed: 10/03/24 Source: Developed by Drs. Adrien Hollingsworth, Tiffanie Alford, Damien Zavala and colleagues, with an educational dede from [employer]. Review of Systems Const All systems reviewed & are unremarkable except as noted in HPI and below Card Denies chest pain at rest, Denies chest pain with activity, Denies edema, Denies irregular heart rhythm, Denies claudication, Denies dyspnea, Denies dyspnea on exertion, Denies orthopnea, Denies paroxysmal nocturnal dyspnea and Denies slow heart rate Resp Denies cough, Denies dyspnea and Denies dyspnea on exertion GI Denies abdominal pain, Denies change in bowel habits, Denies excessive flatus, Denies nausea and Denies vomiting Denies urinary incontinence, Denies urinary hesitancy and Denies urinary urgency Physical exam (Primary Care) Vital Signs: Last Vital Signs Temp 97.3 F 07/13/25 16:21 Pulse 92 07/13/25 16:21 BP 110/70 07/13/25 16:21 Pulse Ox 99 07/13/25 16:21 Oxygen Delivery Method Room Air 07/13/25 16:21 BMI result Body Mass Index 35.9 BMI Assessment/Plan discussion: High BMI High, discussed plan: lifestyle, weight reduction, dietary and physical activity Tobacco/Smoking Status: Tobacco use Status Tobacco use date assessed 07/13/25 07/13/25 16:23 Patient Tobacco Use Status Former Tobacco user 07/13/25 16:23 Tobacco use type 01/07/25 13:32 e-Cigarette/Vaping Use Never Used 07/13/25 16:23 Thrive Assessment: Date of Thrive Assessment Date Thrive assessed 10/03/24 07/13/25 16:23 Currently or been in a relationship where the following occur: No concerns reported Resp Effort & Inspection: normal respiratory effort Auscultation: clear to auscultation bilaterally Cardio Jugular venous distension: no JVD Rate: regular rate Rhythm: regular rhythm Heart sounds: S1 normal heart sound present and S2 normal heart sound present Extrem General: Yes full ROM Coding Level of Care Code Est Pt Level 3 (89275) Diagnoses PAF (paroxysmal atrial fibrillation) I48.0 Left sciatic nerve pain M54.32 Time Spent (min) 19 Assessment & Plan Assessment & Plan (1) PAF (paroxysmal atrial fibrillation): Code(s): I48.0 - Paroxysmal atrial fibrillation Category: Medical (2) Left sciatic nerve pain: Code(s): M54.32 - Sciatica, left side Category: Medical Plan Plan Patient was informed and verbally consented to the use of an ambient scribe for clinic note documentation during this visit. 1. Sciatica The patient is experiencing sciatica, characterized by pain in the lower back, hip, and thigh areas. She has been prescribed Flexeril and naproxen for pain management, which provide some relief but cause drowsiness. Physical therapy and spinal imaging have been recommended to further evaluate and manage her condition. 2. Atrial fibrillation Continue metoprolol. Orders: Orders Comprehensive Edwards. Panel Fast Today R20.2 - Paresthesia of skin Thyroid Stimulating Hormone Today E66.09 - Other obesity due to excess calories, Z68.38 - Body mass index [BMI] 38.0-38.9, adult XR lumbar spine 2-3V Today M54.32 - Sciatica, left side PT Evaluation and Treatment Today M54.32 - Sciatica, left side Lipid Panel Today E78.5 - Hyperlipidemia, unspecified, M54.32 - Sciatica, left side Complete Blood Count Auto Diff Today R20.2 - Paresthesia of skin
--- OUTSIDE RECORDS SUMMARY | 2025-07-13 16:22 | XMS_ITS | Clinical Summary ---
Author Organization [employer] Address [address] [place] [address] Care Team Providers Care Sales Representative Jewelry Name Role Phone Unavailable Primary Care Provider [...]
--- OUTSIDE RECORDS SUMMARY | 2025-07-13 16:22 | XMS_ITS | Encounter Summary ---
Author Organization [email or web address] [facility] Address [address] [place] [address] Care Team Providers Care Manufacturing Team Member Name Role Phone Unavailable Primary Care Provider [...]
== END 2025-07-13 17:09 | disposition home or self-care (01) ==
LOC: HO.HMCH 16:19
PROVIDERS: PCP Internal Medicine; Visit Provider Internal Medicine
DX: I48.0 Paroxysmal atrial fibrillation (principal); M54.32 Sciatica, left side

== ENCOUNTER → 2025-07-13 16:18 | Outpatient (BNVA) | payer OTHER, SELFPAY | PROVIDERS: PCP Internal Medicine; Visit Provider Internal Medicine | DX: I48.0 Paroxysmal atrial fibrillation (principal); M54.32 Sciatica, left side; M41.9 Scoliosis, unspecified; Z79.899 Other long term (current) drug therapy | CPT/HCPCS: 99212 ==

== ENCOUNTER 2025-07-15 07:20 | Outpatient (REF) | payer OTHER, SELFPAY ==
--- NOTE | ~2025-07-15 | XR_ITS ---
EXAMINATION: XR HIP 2 OR MORE VIEWS LEFT, XR HIP 2 OR MORE VIEWS RIGHT HISTORY: M25.552 - Pain in left hip COMPARISON: There are no prior studies available for comparison. FINDINGS: Two views of each hip are submitted. Osseous mineralization is normal. There is no fracture or dislocation. The joint spaces are maintained. The soft tissues are unremarkable. XR/XR hip RT min 2V IMPRESSION: Unremarkable examination of the bilateral hips. Electronically signed by: Adrien Beckford MD 07/15/2025 08:00 AM EDT
--- NOTE | ~2025-07-15 | XR_ITS ---
EXAMINATION: XR LUMBOSACRAL SPINE CLINICAL INFORMATION: M54.32 - Sciatica, left side COMPARISON: X-ray 06/24/2021 TECHNIQUE: Three views of the lumbosacral spine. FINDINGS: 5 lumbar type vertebral bodies. No acute fracture or spondylolisthesis. Vertebral body heights are maintained. Disc spaces are maintained. SI joints are symmetric. No abnormal soft tissue calcification. Paraspinal soft tissues appears within normal limits. Phleboliths in the pelvis. XR/XR lumbar spine 2-3V IMPRESSION: No acute findings. Electronically signed by: Irwin Rodriguez MD 07/15/2025 08:04 AM EDT
--- NOTE | ~2025-07-15 | XR_ITS ---
EXAMINATION: XR HIP 2 OR MORE VIEWS LEFT, XR HIP 2 OR MORE VIEWS RIGHT HISTORY: M25.552 - Pain in left hip COMPARISON: There are no prior studies available for comparison. FINDINGS: Two views of each hip are submitted. Osseous mineralization is normal. There is no fracture or dislocation. The joint spaces are maintained. The soft tissues are unremarkable. XR/XR hip LT min 2V IMPRESSION: Unremarkable examination of the bilateral hips. Electronically signed by: Adrien Beckford MD 07/15/2025 08:00 AM EDT
[2025-07-15 07:32] LABS: MANUAL DIFF FLAG NO
[2025-07-15 08:17] LABS: Hematocrit 37.3 % (37.0-47.0); Hemoglobin 11.9 g/dl (12.0-16.0); Imm Gran Abs Auto 0.01 X10*3/uL (0.00-0.03); Imm Gran Pct Auto 0.2 % (0.0-0.4); Lymphocytes Absolute Auto 2.1 X10*3/uL (1.2-4.9); Mean Corpuscular HGB Conc 31.9 g/dl (31.0-35.0); Mean Corpuscular Hemoglobin 26.1 pg (27.0-33.0); Mean Corpuscular Volume 81.8 fL (80.0-98.0); NRBC Abs Auto 0.000 X10*3/uL (0.0-0.012); NRBC Pct Auto 0.0 /100WBC (0.0-0.2); Platelet Count 362 X10*3/uL (160-400); Red Blood Count 4.56 X10*6/uL (4.20-5.50); White Blood Count 6.5 X10*3/uL (4.8-10.8)
[2025-07-15 09:20] LABS: Alanine Aminotransferase 25 U/L (0-31); Albumin Level 3.9 g/dL (3.5-5.0); Alkaline Phosphatase 68 U/L (39-117); Anion Gap 11 (12-20); Aspartate Amino Transferase 24 U/L (5-31); Blood Urea Nitrogen 19 mg/dL (9-16); Calcium 8.6 mg/dL (8.4-10.2); Carbon Dioxide 23 mmol/L (22-29); Chloride 108 mmol/L (96-108); Cholesterol 188 mg/dL (<200); Estimated Glomerular Filt Rate > 60; HDL Cholesterol 52 mg/dL (>40); Potassium 4.1 mmol/L (3.3-5.1); Sodium 138 mmol/L (135-145); Total Protein 7.3 g/dL (6.5-8.0); Triglycerides 68 mg/dL (<150)
[2025-07-15 09:25] LABS: Thyroid Stimulating Hormone 1.72 uIU/mL (0.32-4.0)
== END 2025-07-15 07:21 | disposition home or self-care (01) ==
LOC: HO.XRAY 07:20
PROVIDERS: PCP Internal Medicine; Visit Provider Internal Medicine
DX: M54.32 Sciatica, left side (principal); M25.552 Pain in left hip; M25.551 Pain in right hip; E78.5 Hyperlipidemia, unspecified; R20.2 Paresthesia of skin; E66.09 Other obesity due to excess calories; Z68.38 Body mass index [BMI] 38.0-38.9, adult
CPT/HCPCS: 36415; 72100; 73502; 80053; 80061; 84443; 85025

== ENCOUNTER → 2025-07-15 07:34 | Outpatient (BNV) | payer OTHER, SELFPAY | PROVIDERS: PCP Internal Medicine; Visit Provider Radiology Diagnostic Ultrasound | DX: M54.32 Sciatica, left side (principal); M54.50 Low back pain, unspecified; M25.552 Pain in left hip; M25.551 Pain in right hip | CPT/HCPCS: 72100; 73502 ==